=== PATIENT | female | born 1965 | race African-American/Black ===

== ENCOUNTER 2019-01-03 04:46 | Inpatient (IN) | payer OTHER ==
[~2019-01-03] VITALS: Ht 162.6 cm; Wt 109.8 kg
[~2019-01-03 04:46] MED LIST: DEXT30CA6 PO; DULO60CA6 PO; GABA-585 PO; OXYC1TAB19 PO; QUET25TA5 PO
[2019-01-03 05:27] LABS: BASO # 0.1 x10^3/uL (0.0-0.2); BASO % 1 % (0-3); EOS # 0.1 x10^3/uL (0.0-0.7); EOS % 1 % (0-3); HEMOGLOBIN 13.3 g/dL (12.0-15.5); LYMPH # 3.5 x10^3/uL (1.0-4.8); LYMPH % 31 % (24-48); MEAN CORPUSCULAR HEMOGLOBIN 29 pg (25-35); MEAN CORPUSCULAR HGB CONC 33 g/dL (31-37); MEAN CORPUSCULAR VOLUME 87 fL (79-100); MONO # 0.6 x10^3/uL (0.0-1.1); MONO % 5 % (0-9); NEUT % 62 % (31-73); PLATELET COUNT 227 x10^3/uL (140-400); RED BLOOD COUNT 4.62 x10^6/uL (3.50-5.40); RED CELL DISTRIBUTION WIDTH 15.3 % (11.5-14.5); WHITE BLOOD COUNT 11.3 x10^3/uL (4.0-11.0)
--- NOTE | 2019-01-03 05:29 | PHYS DOC ---
Past Medical History Past Medical History: Arthritis, Fibromyalgia, Hypertension, Other Additional Past Medical Histor: RHEUMATOID ARTHRITIS, chronic back pain (SONG NOYOLA DO) Past Surgical History: Cholecystectomy, Hysterectomy, Tonsillectomy Additional Past Surgical Histo: ABLASION, DVT REMOVED (SONG NOYOLA DO) Alcohol Use: Rarely Drug Use: Marijuana (SONG NOYOLA DO) Adult General Chief Complaint Chief Complaint: DIZZY/LIGHT HEADED HPI HPI 53-year-old female presents with report of dizziness which is been ongoing intermittently for the past 3 weeks. Reports today became very dizzy and ended up hitting her left hip on the tub. Reports increased pain to this area. Patient reports she feels "tight all over ". Denies chest pain. Reports some associated nausea. Denies vomiting. Denies room spinning sensation. Denies head trauma. Patient reports she thinks her dizziness might be secondary to not taking her prescribed medications over the last few weeks. Reports her pills were moved by some family members and she can't find where they are. (SONG NOYOLA DO) Review of Systems Review of Systems Constitutional: Denies fever or chills Eyes: Denies redness or eye pain HENT: Denies nasal congestion or sore throat Respiratory: Denies cough or shortness of breath Cardiovascular: Denies chest pain or palpitations GI: Denies abdominal pain; reports nausea : Denies dysuria or hematuria Musculoskeletal: Denies back pain; reports left hip pain Integument: Denies rash or skin lesions Neurologic: Denies headache, focal weakness or sensory changes; reports dizziness Complete systems were reviewed and found to be within normal limits, except as documented in this note. (SONG NYOOLA DO) Current Medications Current Medications Current Medications Medications (Trade) Dose Ordered Sig/Abner Start Time Stop Time Status Last Admin Dose Admin Ketorolac Tromethamine (Toradol 15mg Vial) 15 mg 1X ONCE 01/03/19 05:30 01/03/19 05:31 DC 01/03/19 05:42 15 MG Orphenadrine Citrate (Norflex) 60 mg 1X ONCE 01/03/19 05:30 01/03/19 05:31 DC 01/03/19 05:52 60 MG Sodium Chloride 1,000 ml @ 1,000 mls/hr 1X ONCE 01/03/19 05:30 01/03/19 06:29 DC 01/03/19 05:41 1,000 MLS/HR (CHRISTIANO MARQUEZ MD) Allergies Allergies Allergies Coded Allergies Type Severity Reaction Last Updated Verified Penicillins Allergy Intermediate 08/04/14 Yes lamotrigine Allergy Intermediate 01/03/19 Yes latex Allergy Intermediate 08/04/14 Yes lisinopril Allergy Intermediate 08/04/14 Yes (CHRISTIANO MARQUEZ MD) Physical Exam Physical Exam Constitutional: Well developed, well nourished, no acute distress, non-toxic appearance HENT: Normocephalic, atraumatic, oropharynx moist Eyes: PERRL, EOMI, conjunctiva normal, no discharge, no horizontal nystagmus noted Neck: Normal range of motion, no midline tenderness, supple, tenderness to left paraspinal musculature Cardiovascular: Heart rate normal, regular rhythm Lungs & Thorax: Bilateral breath sounds clear to auscultation, no wheezing Abdomen: Soft, no tenderness; pelvis stable and nontender Skin: Warm, dry, no erythema, no rash Back: No tenderness, no CVA tenderness Extremities: Left anterior tibial tenderness, ROM intact, 1+ edema to bilateral lower extremities Neurologic: Alert and oriented X 3, normal motor function, normal sensory function, no focal deficits noted, cerebellar function intact Psychologic: Affect anxious, judgement normal (SONG NOYOLA DO) Current Patient Data Vital Signs Vital Signs Date Time Temp Pulse Resp B/P (MAP) Pulse Ox O2 Delivery O2 Flow Rate FiO2 01/03/19 06:16 84 14 98 01/03/19 04:48 98.0 157/76 (103) Room Air 98.0 (CHRISTIANO MARQUEZ MD) Lab Values Laboratory Tests Test 01/03/19 05:20 01/03/19 05:50 01/03/19 06:07 White Blood Count 11.3 x10^3/uL (4.0-11.0) H Red Blood Count 4.62 x10^6/uL (3.50-5.40) Hemoglobin 13.3 g/dL (12.0-15.5) Hematocrit 40.0 % (36.0-47.0) Mean Corpuscular Volume 87 fL (79-100) Mean Corpuscular Hemoglobin 29 pg (25-35) Mean Corpuscular Hemoglobin Concent 33 g/dL (31-37) Red Cell Distribution Width 15.3 % (11.5-14.5) H Platelet Count 227 x10^3/uL (140-400) Neutrophils (%) (Auto) 62 % (31-73) Lymphocytes (%) (Auto) 31 % (24-48) Monocytes (%) (Auto) 5 % (0-9) Eosinophils (%) (Auto) 1 % (0-3) Basophils (%) (Auto) 1 % (0-3) Neutrophils # (Auto) 7.0 x10^3/uL (1.8-7.7) Lymphocytes # (Auto) 3.5 x10^3/uL (1.0-4.8) Monocytes # (Auto) 0.6 x10^3/uL (0.0-1.1) Eosinophils # (Auto) 0.1 x10^3/uL (0.0-0.7) Basophils # (Auto) 0.1 x10^3/uL (0.0-0.2) Prothrombin Time 13.2 SEC (11.7-14.0) Prothrombin Time INR 1.0 (0.8-1.1) Activated Partial Thromboplast Time 30 SEC (24-38) Sodium Level 147 mmol/L (136-145) H Potassium Level 3.4 mmol/L (3.5-5.1) L Chloride Level 107 mmol/L (98-107) Carbon Dioxide Level 31 mmol/L (21-32) Anion Gap 9 (6-14) Blood Urea Nitrogen 14 mg/dL (7-20) Creatinine 1.0 mg/dL (0.6-1.0) Estimated GFR (Cockcroft-Gault) 70.2 BUN/Creatinine Ratio 14 (6-20) Glucose Level 98 mg/dL (70-99) Lactic Acid Level 1.7 mmol/L (0.4-2.0) Calcium Level 9.3 mg/dL (8.5-10.1) Magnesium Level 1.9 mg/dL (1.8-2.4) Total Bilirubin 0.2 mg/dL (0.2-1.0) Aspartate Amino Transferase (AST) 13 U/L (15-37) L Alanine Aminotransferase (ALT) 22 U/L (14-59) Alkaline Phosphatase 121 U/L (46-116) H Creatine Kinase 131 U/L (26-192) Creatine Kinase MB (Mass) 1.4 ng/mL (0.0-3.6) Creatine Kinase MB Relative Index 1.1 % (0-4) Troponin I Quantitative < 0.017 ng/mL (0.000-0.055) Total Protein 7.3 g/dL (6.4-8.2) Albumin 3.3 g/dL (3.4-5.0) L Albumin/Globulin Ratio 0.8 (1.0-1.7) L Urine Collection Type Unknown Urine Color Yellow Urine Clarity Clear Urine pH 6.0 Urine Specific [place] 1.010 Urine Protein Negative mg/dL (NEG-TRACE) Urine Glucose (UA) Negative mg/dL (NEG) Urine Ketones (Stick) Negative mg/dL (NEG) Urine Blood Moderate (NEG) Urine Nitrite Negative (NEG) Urine Bilirubin Negative (NEG) Urine Urobilinogen Dipstick 0.2 mg/dL (0.2 mg/dL) Urine Leukocyte Esterase Trace (NEG) Urine RBC 1-2 /HPF (0-2) Urine WBC 1-4 /HPF (0-4) Urine Squamous Epithelial Cells Few /LPF Urine Bacteria Few /HPF (0-FEW) Laboratory Tests 01/03/19 05:20 Laboratory Tests 01/03/19 05:50 (CHRISTIANO MARQUEZ MD) Lab Values Laboratory Tests Test 01/03/19 05:20 White Blood Count 11.3 x10^3/uL (4.0-11.0) H Red Blood Count 4.62 x10^6/uL (3.50-5.40) Hemoglobin 13.3 g/dL (12.0-15.5) Hematocrit 40.0 % (36.0-47.0) Mean Corpuscular Volume 87 fL (79-100) Mean Corpuscular Hemoglobin 29 pg (25-35) Mean Corpuscular Hemoglobin Concent 33 g/dL (31-37) Red Cell Distribution Width 15.3 % (11.5-14.5) H Platelet Count 227 x10^3/uL (140-400) Neutrophils (%) (Auto) 62 % (31-73) Lymphocytes (%) (Auto) 31 % (24-48) Monocytes (%) (Auto) 5 % (0-9) Eosinophils (%) (Auto) 1 % (0-3) Basophils (%) (Auto) 1 % (0-3) Neutrophils # (Auto) 7.0 x10^3/uL (1.8-7.7) Lymphocytes # (Auto) 3.5 x10^3/uL (1.0-4.8) Monocytes # (Auto) 0.6 x10^3/uL (0.0-1.1) Eosinophils # (Auto) 0.1 x10^3/uL (0.0-0.7) Basophils # (Auto) 0.1 x10^3/uL (0.0-0.2) Laboratory Tests 01/03/19 05:20 (SONG NOYOLA DO) EKG EKG @0543 NSR at 80bpm, NO ST elevation, QRS 102ms, QT/QTc 394/458ms, baseline artifact noted (SONG NOYOLA DO) Radiology/Procedures Radiology/Procedures [] (SONG NOYOLA DO) Radiology/Procedures [facility] [address] [place], [place] [id number] IMAGING REPORT Signed PATIENT: RALPH ZEE ACCOUNT: [id number] : 1965 LOCATION: ER AGE: 53 SEX: F EXAM STATUS: REG ER ORD. PHYSICIAN: SONG NOYOLA DO REASON: pain s/p fall, dizziness PROCEDURE: CT HEAD AND CERVICAL SPINE WO CT Head W/O Contrast: History: Comparison: Pain status post fall and dizziness Axial images were obtained without contrast. The ramos and white matter appears normal and symmetrical for the patients age. There is no mass effect, extraaxial fluid collections or hydrocephalus. There is no gross bleed. There is no focal loss of ramos-white matter distinction to suggest acute ischemia, i.e. stroke. Impression: No acute findings. End impression CT C-Spine without contrast: Clinical History: Technique: Axial helical images of the cervical spine were obtained without contrast, axial coronal and sagittal reconstruction was performed. Findings: There is no loss of vertebral body stature. There is no prevertebral soft tissue swelling. The vertebral bodies are well aligned. There is straightening of the normal cervical lordosis which can be positional or could be chronic. The C1-C2 relationship is normal. The visualized osseous structures appear normal. Evaluation of the central canal is limited without contrast. There is multiple posterior disc bulges resulting in flattening of the thecal sac. There does not appear to be gross flattening of the cervical cord. There is moderate narrowing of multiple neuroforamen. Impression: No acute findings. Clinical correlation suggested. PQRS Compliance Statement: One or more of the following individualized dose reduction techniques were utilized for this examination: 1. Automated exposure control 2. Adjustment of the mA and/or kV according to patient size 3. Use of iterative reconstruction technique Electronically signed by: Rupesh Roque III, MD (01/03/2019 6:19 AM) [facility] DICTATED and SIGNED BY: RUPESH ROQUE III, MD DATE: 01/03/19618 (CHRISTIANO MARQUEZ MD) Course & Med Decision Making Course & Med Decision Making Pertinent Labs and Imaging studies reviewed. (See chart for details) Patient presents with 3 week history of intermittent dizziness. Denies room spinning sensation. Reports some associated nausea. Symptomatic treatment provided. Patient appears very anxious. NIHSS 0. Labs obtained and pending. CT head/cervical spine also pending. Chest x-ray and left hip x-ray pending. Sign out given to Dr. Marquez for further evaluation and final disposition. Discussed current findings and plan with patient, who acknowledges understanding and agreement. (SONG NOYOLA DO) Course & Med Decision Making Patient's care transferred to [place] at 0600. Evaluation of patient in ER showed 53-year-old female patient with episodes of dizziness for 3 weeks and a fall this morning and injured her left hip. CT head and a Of chest and hip was unremarkable. Labs showed mild hypernatremia and hypokalemia acuity is pending. Patient asked for pain medication for left hip pain. Toradol was ordered. Patient requiring admission for further evaluation and treatment. Discussed with Dr. Demarco who is in agreement with admission. Discussed findings and plan with patient and family, who acknowledge understanding and agreement. (CHRISTIANO MARQUEZ MD) Dragon Disclaimer Dragon Disclaimer This electronic medical record was generated, in whole or in part, using a voice recognition dictation system. (SONG NOYOLA DO) Departure Departure Impression: Primary Impression: Dizziness Additional Impressions: Contusion, hip Hypokalemia Hypernatremia Disposition: 09 ADMITTED INPATIENT (at 0 650) Admitting Physician: HIMS (Dr. Demarco accepted admission at 0 648.) (CHRISTIANO MARQUEZ MD) Condition: IMPROVED Referrals: UNKNOWN PCP NAME (PCP) NIHSS Stroke Scale NIH Stroke Scale: NIH Stroke Scale Response (Comments) Value Level of Consciousness: 0 Alert/Responsive 0 LOC Questions: 0 Answers both correctly 0 LOC Commands: 0 Performs both tasks 0 Best Gaze: 0 Normal 0 Visual: 0 No visual loss 0 Facial Palsy: 0 Normal, symmetrical 0 Motor - Left Arm 0 No drift 0 Motor - Right Arm 0 No drift 0 Motor - Left Leg 0 No drift 0 Motor: Right Leg 0 No drift 0 Limb Ataxia: 0 Absent 0 Sensory: 0 No loss 0 Best Language: 0 Normal 0 Dysathria: 0 Normal 0 Extinction and Inattention: 0 Normal 0 Total 0 Problem Qualifiers Additional Impressions: Contusion, hip Encounter type: initial encounter Laterality: left Qualified Codes: S70.02XA - Contusion of left hip, initial encounter SONG NOYOLA DO Jan 03, 2019 05:29 CHRISTIANO MARQUEZ MD Jan 03, 2019 06:58
[2019-01-03] MEDS ORDERED: KETOROLAC 15 MG/ML VIAL. IVP ONE (05:30)
[2019-01-03] MEDS ORDERED: ORPHENADRINE CITRATE 60 MG/2 ML VIAL. IV ONE (05:30)
[2019-01-03] MEDS ORDERED: IV NORMAL SALINE 1000ML BAG 1,000 ML IV ONE (05:30)
[2019-01-03 06:15] LABS: CALCIUM 9.3 mg/dL (8.5-10.1); GFR 70.2; POTASSIUM 3.4 mmol/L (3.5-5.1)
[2019-01-03 06:19] LABS: PROTHROMBIN TIME PATIENT 13.2 SEC (11.7-14.0)
--- NOTE | 2019-01-03 06:22 | RAD ---
CT Head W/O Contrast: History: Comparison: Pain status post fall and dizziness Axial images were obtained without contrast. The ramos and white matter appears normal and symmetrical for the patients age. There is no mass effect, extraaxial fluid collections or hydrocephalus. There is no gross bleed. There is no focal loss of ramos-white matter distinction to suggest acute ischemia, i.e. stroke. Impression: No acute findings. End impression CT C-Spine without contrast: Clinical History: Technique: Axial helical images of the cervical spine were obtained without contrast, axial coronal and sagittal reconstruction was performed. Findings: There is no loss of vertebral body stature. There is no prevertebral soft tissue swelling. The vertebral bodies are well aligned. There is straightening of the normal cervical lordosis which can be positional or could be chronic. The C1-C2 relationship is normal. The visualized osseous structures appear normal. Evaluation of the central canal is limited without contrast. There is multiple posterior disc bulges resulting in flattening of the thecal sac. There does not appear to be gross flattening of the cervical cord. There is moderate narrowing of multiple neuroforamen. Impression: No acute findings. Clinical correlation suggested. PQRS Compliance Statement: One or more of the following individualized dose reduction techniques were utilized for this examination: 1. Automated exposure control 2. Adjustment of the mA and/or kV according to patient size 3. Use of iterative reconstruction technique Electronically signed by: Pete Rivera III, MD (01/03/2019 6:19 AM) [facility]
[2019-01-03 06:25] LABS: BILIRUBIN,URINE NEGATIVE (NEG); CLARITY,URINE CLEAR; COLOR,URINE YELLOW; NITRITE,URINE NEGATIVE (NEG); PROTEIN,URINE NEGATIVE (NEG-TRACE); UROBILINOGEN,URINE 0.2 mg/dL (0.2 mg/dL)
[2019-01-03 06:27] LABS: ALBUMIN 3.3 g/dL (3.4-5.0); ALBUMIN/GLOBULIN RATIO 0.8 (1.0-1.7); MAGNESIUM 1.9 mg/dL (1.8-2.4); TOTAL BILIRUBIN 0.2 mg/dL (0.2-1.0); TOTAL PROTEIN 7.3 g/dL (6.4-8.2)
[2019-01-03 06:49] LABS: BACTERIA,URINE FEW /HPF (0-FEW); SQUAMOUS EPITHELIAL CELL,UR FEW /LPF
[2019-01-03] MEDS ORDERED: MECLIZINE HCL 12.5 MG TABLET. PO ONE (07:15)
[2019-01-03] MEDS ORDERED: POTASSIUM CHLORIDE 20 MEQ TABLET.ER. PO ONE (07:15)
[2019-01-03] MEDS ORDERED: KETOROLAC 30 MG/ML VIAL. IVP ONE (07:15)
--- NOTE | 2019-01-03 07:57 | RAD ---
CHEST AP ONLY History: Dizziness. Comparison: August 04, 2014 Findings: No consolidation or pleural effusion. Normal heart size. Prior granulomatous disease. Impression: 1. No acute cardiopulmonary process. Electronically signed by: Clark Kapoor DO (01/03/2019 7:54 AM) [facility]
--- NOTE | 2019-01-03 07:59 | RAD ---
HIP LEFT 2V WITH PELVIS History: Fall. Pain. Technique: AP view the pelvis and 2 additional views of the left hip. Comparison: None. Findings: Normal alignment of the hips. No fracture. Soft tissues unremarkable. Mild pubic symphysis DJD. Lower lumbar spondylosis. Impression: 1. No acute osseous abnormality. Electronically signed by: Clark Kapoor DO (01/03/2019 7:56 AM) [facility]
--- NOTE | 2019-01-03 08:00 | EKG ---
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
[2019-01-03] MEDS: HYDROcodone/APAP 5/325MG 1 TAB TABLET PO PRN ×3 (10:07→21:46)
[2019-01-03] MEDS: MORPHINE SULFATE 2 MG/ML VIAL. IV PRN ×2 (10:07→17:49)
--- NOTE | 2019-01-03 11:08 | HP ---
ADMIT DATE: 01/03/2019 CHIEF COMPLAINT: Weakness and fall, hip pain, headache, tightness all over. HISTORY OF PRESENT ILLNESS: The patient is a pleasant 53-year-old female, who basically was going to the bathroom and became a little weak, she got dizzy and then she fell. I had her explain how she fell; I really was not quite clear, but she states she never really ended up totally on the floor. I think she fell down to her knees and hit her left hip on the side of the tub. Now, she states she has a headache. We scanned her brain and it is negative. She has been noncompliance with her meds. She states she has not been taking her prescribed meds for the past few weeks. Apparently, some of her family members took her meds and she cannot find them anywhere. I discussed the case with ER physician. We have admitted the patient. We are going to be consulting Orthopedics regarding this left hip pain. We will give her some pain meds for her headache. I also offered to consult Neurology, but she refuses to see them. PAST MEDICAL HISTORY: Arthritis, fibromyalgia, hypertension, rheumatoid arthritis, chronic back pain, cholecystectomy, hysterectomy, tonsillectomy, ablation, DVT, marijuana use. ALLERGIES: PENICILLIN, LATEX, LISINOPRIL, AND LAMOTRIGINE. FAMILY HISTORY: Hypertension. SOCIAL HISTORY: She does not drink, smoke, or take drugs. MEDICATIONS: Reviewed, please refer to the MRAD. REVIEW OF SYSTEMS: GENERAL: She complains of weakness. HEAD: She complains of headache. SKIN: No bruising, hair changes or rashes. EYES: No blurred, double or loss of vision. NOSE AND THROAT: No history of nosebleeds, hoarseness or sore throat. HEART: No history of palpitations, chest pain or shortness of breath on exertion. LUNGS: Denies cough, hemoptysis, wheezing or shortness of breath. GASTROINTESTINAL: Denies changes in appetite, nausea, vomiting, diarrhea or constipation. GENITOURINARY: No history of frequency, urgency, hesitancy or nocturia. NEUROLOGIC: She complains of headache as well. Denies history of numbness, tingling, tremor or weakness. PSYCHIATRIC: No history of panic, anxiety or depression. ENDOCRINE: No history of heat or cold intolerance, polyuria or polydipsia. EXTREMITIES: She complains of left hip pain. MUSCULOSKELETAL: She complains of diffuse body pain. LABORATORY DATA: White count is slightly high at 11.3. Electrolytes: Sodium is a little high at 147, potassium a little low at 3.4. The other lytes are normal. Alk phos slightly high at 121. AST low at 13. Troponin is 0. Albumin is 3.3. Urinalysis: Trace leukocyte esterase, 1-4 white cells, a few squamous epithelial cells, so I suspect that might be contaminated. Chest x-ray: Negative. CT of the cervical spine: Negative. Left hip films: Negative. ASSESSMENT AND PLAN: Fall and dizziness, diffuse pain with left hip pain and headache, hypokalemia, leukocytosis, hypernatremia, and low albumin. The patient has been admitted. We are going to consult Orthopedics regarding the left hip pain, suspect she might need a CAT scan of that to confirm whether or not it is actually fractured. She does seem to be having a lot of pain there, especially when she moves. Morphine p.r.n. and p.r.n. Lortab, PT/OT, home meds, replace her potassium, IV normal saline at 75 an hour, full code. NIKI TYLER DO DR: SASHA/rodolfo JOB#: [id number] / [id number]
--- NOTE | 2019-01-03 12:56 | NUR ---
SS following for discharge planning. SS reviewed pt chart. Pt is from home and is currently on room air. PT/OT ordered. SS will continue to follow for discharge planning.
[2019-01-03] MEDS: IV NORMAL SALINE 1000ML BAG 1,000 ML IV SCH ×2 (14:00→23:50)
[2019-01-03] MEDS ORDERED: VENL150C PO (14:32)
[2019-01-03] MEDS: VENLAFAXINE 50 MG TABLET. PO SCH ×2 (17:49→21:01)
[2019-01-03] MEDS: NICOTINE 21MG PATCH. TD PRN (17:49)
[2019-01-03 19:30] VITALS: BP 141/82
[2019-01-03 23:33] VITALS: BP 148/94
[2019-01-04] MEDS: HYDROcodone/APAP 5/325MG 1 TAB TABLET PO PRN ×4 (03:21→21:38)
[2019-01-04 03:45] VITALS: BP 126/81
[2019-01-04 06:30] LABS: BASO % 0 % (0-3); EOS # 0.2 x10^3/uL (0.0-0.7); EOS % 3 % (0-3); HEMATOCRIT 37.7 % (36.0-47.0); HEMOGLOBIN 12.4 g/dL (12.0-15.5); LYMPH # 2.5 x10^3/uL (1.0-4.8); LYMPH % 31 % (24-48); MEAN CORPUSCULAR HEMOGLOBIN 29 pg (25-35); MEAN CORPUSCULAR HGB CONC 33 g/dL (31-37); MEAN CORPUSCULAR VOLUME 88 fL (79-100); MONO # 0.5 x10^3/uL (0.0-1.1); MONO % 6 % (0-9); NEUT # 4.8 x10^3/uL (1.8-7.7); NEUT % 60 % (31-73); PLATELET COUNT 196 x10^3/uL (140-400); RED BLOOD COUNT 4.31 x10^6/uL (3.50-5.40); RED CELL DISTRIBUTION WIDTH 14.8 % (11.5-14.5)
[2019-01-04 06:47] LABS: ALBUMIN/GLOBULIN RATIO 0.8 (1.0-1.7); CALCIUM 8.5 mg/dL (8.5-10.1); CREATININE 0.9 mg/dL (0.6-1.0); GFR 79.3; POTASSIUM 3.9 mmol/L (3.5-5.1); TOTAL BILIRUBIN 0.2 mg/dL (0.2-1.0); TOTAL PROTEIN 6.9 g/dL (6.4-8.2)
[2019-01-04] MEDS: MORPHINE SULFATE 2 MG/ML VIAL. IV PRN ×4 (07:23→21:51)
[2019-01-04 07:59] VITALS: BP 148/83
[2019-01-04] MEDS: NICOTINE 21MG PATCH. TD PRN (10:00)
[2019-01-04] MEDS: amLODIPine BESYLATE 10 MG TABLET PO SCH (10:01)
[2019-01-04] MEDS: VENLAFAXINE 50 MG TABLET. PO SCH ×3 (10:01→21:38)
--- NOTE | 2019-01-04 10:09 | PDOC2 ---
CONSULT Date of Consult Date of Consult DATE: 01/04/19 TIME: 10:06 I just noted consult now in EMR. I wasn't notified otherwise. Identification/Chief Complaint Chief Complaint left hip and left leg pain after a fall Source Source: Chart review, Patient History of Present Illness Reason for Visit: This 53-year-old woman fell, and landed on the bathtub. She was able to weight- bear afterwards but came to the hospital with continued pain. She fell about 2 or 3 months ago in the parking lot and bruised her left tibia which is still bothersome to her, and she said is actually more concerning to her than the hip. She also reports a left ankle fracture which occurred in the and was treated at [facility] with air splint and [facility] Walker. Past Medical History Cardiovascular: HTN Rheumatologic: Fibromyalgia Past Surgical History Past Surgical History: No pertinent history Family History Family History: Heart Disease, High Cholestrol, Hypertension Social History ALCOHOL: none Current Problem List Problem List Problems Medical Problems: (1) Contusion, hip Status: Acute (2) Dizziness Status: Acute (3) Hypernatremia Status: Acute (4) Hypokalemia Status: Acute Current Medications Current Medications Current Medications Sodium Chloride 1,000 ml @ 1,000 mls/hr 1X ONCE IV Last administered on 01/03/19at 05:41; Start 01/03/19 at 05:30; Stop 01/03/19 at 06:29; Status DC Orphenadrine Citrate (Norflex) 60 mg 1X ONCE IV Last administered on 01/03/19at 05:52; Start 01/03/19 at 05:30; Stop 01/03/19 at 05:31; Status DC Ketorolac Tromethamine (Toradol 15mg Vial) 15 mg 1X ONCE IVP Last administered on 01/03/19at 05:42; Start 01/03/19 at 05:30; Stop 01/03/19 at 05:31; Status DC Ketorolac Tromethamine (Toradol 30mg Vial) 30 mg 1X ONCE IVP ; Start 01/03/19 at 07:15; Stop 01/03/19 at 07:05; Status DC Meclizine HCl (Antivert) 25 mg 1X ONCE PO Last administered on 01/03/19at 07:08; Start 01/03/19 at 07:15; Stop 01/03/19 at 07:16; Status DC Potassium Chloride (Klor-Con) 40 meq 1X ONCE PO Last administered on 01/03/19at 07:08; Start 01/03/19 at 07:15; Stop 01/03/19 at 07:16; Status DC Morphine Sulfate (Morphine Sulfate) 2 mg PRN Q2HR PRN IV PAIN Last administered on 01/04/19 10:01; Start 01/03/19 at 09:30 Acetaminophen/ Hydrocodone Bitart (Lortab 5/325) 1 tab PRN Q4HRS PRN PO PAIN Last administered on 01/04/19 10:00; Start 01/03/19 at 09:30 Amlodipine Besylate (Norvasc) 10 mg DAILY PO Last administered on 01/04/19 10:01; Start 01/04/19 at 09:00 Sodium Chloride 1,000 ml @ 75 mls/hr [id number] IV Last administered on 01/03/19at 23:50; Start 01/03/19 at 10:30 Venlafaxine HCl (Effexor) 50 mg TID PO Last administered on 01/04/19at 10:01; Start 01/03/19 at 15:30 Nicotine (Nicoderm Cq 21mg) 1 patch PRN DAILY PRN TD SMOKING CESSATION Last administered on 01/04/19at 10:00; Start 01/03/19 at 17:15 Active Scripts Active Reported Effexor Xr (Venlafaxine Hcl) 150 Mg Cap.er.24h 150 Mg PO DAILY Adderall Xr 30 Mg Capsule (Dextroamphetamine/Amphetamine) 30 Mg Cap.er.24h 1 Cap PO DAILY Allergies Allergies: Coded Allergies: Penicillins (Verified Allergy, Intermediate, 08/04/14) lamotrigine (Verified Allergy, Intermediate, 01/03/19) latex (Verified Allergy, Intermediate, 08/04/14) lisinopril (Verified Allergy, Intermediate, 08/04/14) Physical Exam General: Alert, Cooperative HEENT: Atraumatic Lungs: Normal air movement Heart: Regular rate Abdomen: Soft Extremities: Other (her left hip is slightly tender around the left flank area, above the iliac crest. Less tenderness over the greater trochanter and hip joint proper. Possible trace bruising, nothing dramatic. I was able to have her ac tively lift the leg from the bed, and internal and external rotation with minimal pain. She has some muscle and soft tissue soreness but no apparent bony pain with those maneuvers. I simulated weightbearing by applying pressure at the heel and she had no hip pain. She does have a discoloration on the anterior tibia as the area she reports the injury a few months ago, and there is no current break in the skin or any raised lesion, and this appears to be a remote recovering contusion without apparent fracture. The ankle alignment grossly appears normal and was nontender at the foot and ankle. Distal neurovascular function is unremarkable.) Neuro: Normal tone, Sensation intact Psych/Mental Status: Mood NL Vitals VITALS Vital Signs Date Time Temp Pulse Resp B/P (MAP) Pulse Ox O2 Delivery O2 Flow Rate FiO2 01/04/19 10:01 89 148/83 01/04/19 10:01 97 Room Air 01/04/19 07:59 97.9 18 97.9 Labs Labs Laboratory Tests Test 01/03/19 05:20 01/03/19 05:50 01/03/19 06:07 01/04/19 06:00 White Blood Count 11.3 x10^3/uL (4.0-11.0) 8.0 x10^3/uL (4.0-11.0) Red Blood Count 4.62 x10^6/uL (3.50-5.40) 4.31 x10^6/uL (3.50-5.40) Hemoglobin 13.3 g/dL (12.0-15.5) 12.4 g/dL (12.0-15.5) Hematocrit 40.0 % (36.0-47.0) 37.7 % (36.0-47.0) Mean Corpuscular Volume 87 fL (79-100) 88 fL (79-100) Mean Corpuscular Hemoglobin 29 pg (25-35) 29 pg (25-35) Mean Corpuscular Hemoglobin Concent 33 g/dL (31-37) 33 g/dL (31-37) Red Cell Distribution Width 15.3 % (11.5-14.5) 14.8 % (11.5-14.5) Platelet Count 227 x10^3/uL (140-400) 196 x10^3/uL (140-400) Neutrophils (%) (Auto) 62 % (31-73) 60 % (31-73) Lymphocytes (%) (Auto) 31 % (24-48) 31 % (24-48) Monocytes (%) (Auto) 5 % (0-9) 6 % (0-9) Eosinophils (%) (Auto) 1 % (0-3) 3 % (0-3) Basophils (%) (Auto) 1 % (0-3) 0 % (0-3) Neutrophils # (Auto) 7.0 x10^3/uL (1.8-7.7) 4.8 x10^3/uL (1.8-7.7) Lymphocytes # (Auto) 3.5 x10^3/uL (1.0-4.8) 2.5 x10^3/uL (1.0-4.8) Monocytes # (Auto) 0.6 x10^3/uL (0.0-1.1) 0.5 x10^3/uL (0.0-1.1) Eosinophils # (Auto) 0.1 x10^3/uL (0.0-0.7) 0.2 x10^3/uL (0.0-0.7) Basophils # (Auto) 0.1 x10^3/uL (0.0-0.2) 0.0 x10^3/uL (0.0-0.2) Prothrombin Time 13.2 SEC (11.7-14.0) Prothromb Time International Ratio 1.0 (0.8-1.1) Activated Partial Thromboplast Time 30 SEC (24-38) Sodium Level 147 mmol/L (136-145) 146 mmol/L (136-145) Potassium Level 3.4 mmol/L (3.5-5.1) 3.9 mmol/L (3.5-5.1) Chloride Level 107 mmol/L (98-107) 112 mmol/L (98-107) Carbon Dioxide Level 31 mmol/L (21-32) 28 mmol/L (21-32) Anion Gap 9 (6-14) 6 (6-14) Blood Urea Nitrogen 14 mg/dL (7-20) 10 mg/dL (7-20) Creatinine 1.0 mg/dL (0.6-1.0) 0.9 mg/dL (0.6-1.0) Estimated GFR (Cockcroft-Gault) 70.2 79.3 BUN/Creatinine Ratio 14 (6-20) 11 (6-20) Glucose Level 98 mg/dL (70-99) 95 mg/dL (70-99) Lactic Acid Level 1.7 mmol/L (0.4-2.0) Calcium Level 9.3 mg/dL (8.5-10.1) 8.5 mg/dL (8.5-10.1) Magnesium Level 1.9 mg/dL (1.8-2.4) Total Bilirubin 0.2 mg/dL (0.2-1.0) 0.2 mg/dL (0.2-1.0) Aspartate Amino Transf (AST/SGOT) 13 U/L (15-37) 15 U/L (15-37) Alanine Aminotransferase (ALT/SGPT) 22 U/L (14-59) 21 U/L (14-59) Alkaline Phosphatase 121 U/L (46-116) 111 U/L (46-116) Creatine Kinase 131 U/L (26-192) Creatine Kinase MB (Mass) 1.4 ng/mL (0.0-3.6) Creatine Kinase MB Relative Index 1.1 % (0-4) Troponin I Quantitative < 0.017 ng/mL (0.000-0.055) Total Protein 7.3 g/dL (6.4-8.2) 6.9 g/dL (6.4-8.2) Albumin 3.3 g/dL (3.4-5.0) 3.0 g/dL (3.4-5.0) Albumin/Globulin Ratio 0.8 (1.0-1.7) 0.8 (1.0-1.7) Urine Collection Type Unknown Urine Color Yellow Urine Clarity Clear Urine pH 6.0 Urine Specific [place] 1.010 Urine Protein Negative mg/dL (NEG-TRACE) Urine Glucose (UA) Negative mg/dL (NEG) Urine Ketones (Stick) Negative mg/dL (NEG) Urine Blood Moderate (NEG) Urine Nitrite Negative (NEG) Urine Bilirubin Negative (NEG) Urine Urobilinogen Dipstick 0.2 mg/dL (0.2 mg/dL) Urine Leukocyte Esterase Trace (NEG) Urine RBC 1-2 /HPF (0-2) Urine WBC 1-4 /HPF (0-4) Urine Squamous Epithelial Cells Few /LPF Urine Bacteria Few /HPF (0-FEW) Laboratory Tests Test 01/04/19 06:00 White Blood Count 8.0 x10^3/uL (4.0-11.0) Red Blood Count 4.31 x10^6/uL (3.50-5.40) Hemoglobin 12.4 g/dL (12.0-15.5) Hematocrit 37.7 % (36.0-47.0) Mean Corpuscular Volume 88 fL (79-100) Mean Corpuscular Hemoglobin 29 pg (25-35) Mean Corpuscular Hemoglobin Concent 33 g/dL (31-37) Red Cell Distribution Width 14.8 % (11.5-14.5) Platelet Count 196 x10^3/uL (140-400) Neutrophils (%) (Auto) 60 % (31-73) Lymphocytes (%) (Auto) 31 % (24-48) Monocytes (%) (Auto) 6 % (0-9) Eosinophils (%) (Auto) 3 % (0-3) Basophils (%) (Auto) 0 % (0-3) Neutrophils # (Auto) 4.8 x10^3/uL (1.8-7.7) Lymphocytes # (Auto) 2.5 x10^3/uL (1.0-4.8) Monocytes # (Auto) 0.5 x10^3/uL (0.0-1.1) Eosinophils # (Auto) 0.2 x10^3/uL (0.0-0.7) Basophils # (Auto) 0.0 x10^3/uL (0.0-0.2) Sodium Level 146 mmol/L (136-145) Potassium Level 3.9 mmol/L (3.5-5.1) Chloride Level 112 mmol/L (98-107) Carbon Dioxide Level 28 mmol/L (21-32) Anion Gap 6 (6-14) Blood Urea Nitrogen 10 mg/dL (7-20) Creatinine 0.9 mg/dL (0.6-1.0) Estimated GFR (Cockcroft-Gault) 79.3 BUN/Creatinine Ratio 11 (6-20) Glucose Level 95 mg/dL (70-99) Calcium Level 8.5 mg/dL (8.5-10.1) Total Bilirubin 0.2 mg/dL (0.2-1.0) Aspartate Amino Transf (AST/SGOT) 15 U/L (15-37) Alanine Aminotransferase (ALT/SGPT) 21 U/L (14-59) Alkaline Phosphatase 111 U/L (46-116) Total Protein 6.9 g/dL (6.4-8.2) Albumin 3.0 g/dL (3.4-5.0) Albumin/Globulin Ratio 0.8 (1.0-1.7) Images Images [facility] [address] [place] [address] IMAGING REPORT Signed PATIENT: RALPH ZEE ACCOUNT: [id number] : 1965 LOCATION: [address] [place] [address] AGE: 53 SEX: F EXAM STATUS: ADM IN ORD. PHYSICIAN: SONG NOYOLA DO REASON: pain s/p fall PROCEDURE: HIP LEFT 2V WITH PELVIS HIP LEFT 2V WITH PELVIS History: Fall. Pain. Technique: AP view the pelvis and 2 additional views of the left hip. Comparison: None. Findings: Normal alignment of the hips. No fracture. Soft tissues unremarkable. Mild pubic symphysis DJD. Lower lumbar spondylosis. Impression: 1. No acute osseous abnormality. Electronically signed by: lCark Kapoor DO (01/03/2019 7:56 AM) [facility] DICTATED and SIGNED BY: CLARK KAPOOR DO DATE: 01/03/19 0756 Assessment/Plan Assessment/Plan I reviewed the x-rays. No fracture is seen. I don't believe there is a fracture based on my examination. I will allow her to be up weightbearing as tolerated with a walker. If she has continued or increasing pain and would consider CT scan or MRI (which is more sensitive) or bone scan for further evaluation, but my suspicion of occult fracture is very low. I believe she has a hip contusion and no active treatment is required. RUPESH LOMELI MD Jan 04, 2019 10:08
--- NOTE | 2019-01-04 11:09 | PDOC ---
[employer] PROGRESS NOTE Chief Complaint Chief Complaint Fall weakness hip pain headache History of Present Illness History of Present Illness 01/04/19 Pt seen and examined. Pt was walking with help of nurse in room. Still awaiting ortho input about hip - Xray of hip was negative for fracture on admission. Pt unwilling to have neuro consult. Vitals/I&O Vitals/I&O: Vital Signs Date Time Temp Pulse Resp B/P (MAP) Pulse Ox O2 Delivery O2 Flow Rate FiO2 01/04/19 10:01 89 148/83 01/04/19 10:01 97 Room Air 01/04/19 07:59 97.9 18 97.9 I & O 01/03/19 01/03/19 01/04/19 15:00 23:00 07:00 Intake Total 1000 ml 300 ml 700 ml Balance 1000 ml 300 ml 700 ml Physical Exam Physical Exam: Yes headache Yes weakness General: Alert, Oriented X3, mild distress Heart: Regular rate, No murmurs Lungs: Clear Abdomen: Soft, No tenderness Extremities: No edema, No tenderness/swelling, Other (No bruising on L hip where pt reports pain) Labs Labs: Laboratory Tests Test 01/04/19 06:00 White Blood Count 8.0 x10^3/uL (4.0-11.0) Red Blood Count 4.31 x10^6/uL (3.50-5.40) Hemoglobin 12.4 g/dL (12.0-15.5) Hematocrit 37.7 % (36.0-47.0) Mean Corpuscular Volume 88 fL (79-100) Mean Corpuscular Hemoglobin 29 pg (25-35) Mean Corpuscular Hemoglobin Concent 33 g/dL (31-37) Red Cell Distribution Width 14.8 % (11.5-14.5) Platelet Count 196 x10^3/uL (140-400) Neutrophils (%) (Auto) 60 % (31-73) Lymphocytes (%) (Auto) 31 % (24-48) Monocytes (%) (Auto) 6 % (0-9) Eosinophils (%) (Auto) 3 % (0-3) Basophils (%) (Auto) 0 % (0-3) Neutrophils # (Auto) 4.8 x10^3/uL (1.8-7.7) Lymphocytes # (Auto) 2.5 x10^3/uL (1.0-4.8) Monocytes # (Auto) 0.5 x10^3/uL (0.0-1.1) Eosinophils # (Auto) 0.2 x10^3/uL (0.0-0.7) Basophils # (Auto) 0.0 x10^3/uL (0.0-0.2) Sodium Level 146 mmol/L (136-145) Potassium Level 3.9 mmol/L (3.5-5.1) Chloride Level 112 mmol/L (98-107) Carbon Dioxide Level 28 mmol/L (21-32) Anion Gap 6 (6-14) Blood Urea Nitrogen 10 mg/dL (7-20) Creatinine 0.9 mg/dL (0.6-1.0) Estimated GFR (Cockcroft-Gault) 79.3 BUN/Creatinine Ratio 11 (6-20) Glucose Level 95 mg/dL (70-99) Calcium Level 8.5 mg/dL (8.5-10.1) Total Bilirubin 0.2 mg/dL (0.2-1.0) Aspartate Amino Transf (AST/SGOT) 15 U/L (15-37) Alanine Aminotransferase (ALT/SGPT) 21 U/L (14-59) Alkaline Phosphatase 111 U/L (46-116) Total Protein 6.9 g/dL (6.4-8.2) Albumin 3.0 g/dL (3.4-5.0) Albumin/Globulin Ratio 0.8 (1.0-1.7) Assessment and Plan Assessmemt and Plan Problems Medical Problems: (1) Contusion, hip Status: Acute (2) Dizziness Status: Acute (3) Hypernatremia Status: Acute (4) Hypokalemia Status: Acute A/P Fall with weakness and dizziness Hip Pain Headache hypernatremia CT head, Chest xray, and hip xray were all negative for acute processes await Orthopedics input regarding left hip pain, suspect she might need a CAT scan Pt refused neuro consult. Morphine p.r.n. and [place] 5/325 p.r.n. PT/OT, home meds, IV normal saline at 75 an hour, full code. Comment Review of Relevant I have reviewed the following items berta (where applicable) has been applied. Medications: Current Medications Medications (Trade) Dose Ordered Sig/Abner Route PRN Reason Start Time Stop Time Status Last Admin Dose Admin Amlodipine Besylate (Norvasc) 10 mg DAILY PO 01/04/19 09:00 01/04/19 10:01 Venlafaxine HCl (Effexor) 50 mg TID PO 01/03/19 15:30 01/04/19 10:01 Nicotine (Nicoderm Cq 21mg) 1 patch PRN DAILY PRN TD SMOKING CESSATION 01/03/19 17:15 01/04/19 10:00 NIKI TYLER III DO Jan 04, 2019 11:09
[2019-01-04 11:31] VITALS: BP 146/86
[2019-01-04] MEDS ORDERED: ASPIRIN CHEWABLE 81 MG TABLET. PO ONE (13:00)
[2019-01-04] MEDS: IV NORMAL SALINE 1000ML BAG 1,000 ML IV SCH (13:36)
--- NOTE | 2019-01-04 13:45 | NUR ---
SW following pt. PT pending, OT recommends home health. SW will continue to follow.
[2019-01-04 15:12] VITALS: BP 152/64
[2019-01-04] MEDS ORDERED: POLYETHYLENE GLYCOL 3350 17 GM PACKET. PO PRN (16:45)
[2019-01-04 23:16] VITALS: BP 123/76
[2019-01-05 00:08] LABS: HEMOGLOBIN A1C 5.1 % (4.8-5.6)
[2019-01-05] MEDS: MORPHINE SULFATE 2 MG/ML VIAL. IV PRN ×4 (01:37→22:15)
[2019-01-05] MEDS: IV NORMAL SALINE 1000ML BAG 1,000 ML IV SCH ×2 (01:41→17:42)
[2019-01-05 03:58] VITALS: BP 140/92
[2019-01-05] MEDS: HYDROcodone/APAP 5/325MG 1 TAB TABLET PO PRN ×4 (04:05→20:53)
[2019-01-05 07:15] VITALS: BP 148/73
[2019-01-05 09:37] LABS: ALBUMIN/GLOBULIN RATIO 0.8 (1.0-1.7); CALCIUM 8.3 mg/dL (8.5-10.1); CREATININE 0.9 mg/dL (0.6-1.0); GFR 79.3; POTASSIUM 3.4 mmol/L (3.5-5.1); TOTAL BILIRUBIN 0.2 mg/dL (0.2-1.0); TOTAL PROTEIN 6.8 g/dL (6.4-8.2)
[2019-01-05 09:49] LABS: BASO % 0 % (0-3); EOS # 0.2 x10^3/uL (0.0-0.7); EOS % 3 % (0-3); HEMATOCRIT 37.4 % (36.0-47.0); HEMOGLOBIN 12.2 g/dL (12.0-15.5); LYMPH # 2.4 x10^3/uL (1.0-4.8); LYMPH % 32 % (24-48); MEAN CORPUSCULAR HEMOGLOBIN 29 pg (25-35); MEAN CORPUSCULAR HGB CONC 33 g/dL (31-37); MEAN CORPUSCULAR VOLUME 87 fL (79-100); MONO # 0.4 x10^3/uL (0.0-1.1); MONO % 5 % (0-9); NEUT # 4.4 x10^3/uL (1.8-7.7); NEUT % 59 % (31-73); PLATELET COUNT 193 x10^3/uL (140-400); RED BLOOD COUNT 4.28 x10^6/uL (3.50-5.40); RED CELL DISTRIBUTION WIDTH 14.8 % (11.5-14.5); WHITE BLOOD COUNT 7.4 x10^3/uL (4.0-11.0)
[2019-01-05] MEDS: VENLAFAXINE 50 MG TABLET. PO SCH ×3 (10:25→20:53)
[2019-01-05] MEDS: ASPIRIN CHEWABLE 81 MG TABLET. PO SCH (10:25)
[2019-01-05] MEDS: amLODIPine BESYLATE 10 MG TABLET PO SCH (10:25)
[2019-01-05 11:13] VITALS: BP 150/70
--- NOTE | 2019-01-05 12:09 | PDOC ---
[employer] PROGRESS NOTE Chief Complaint Chief Complaint Fall weakness hip pain headache History of Present Illness History of Present Illness 01/05/19 Pt seen and examined. Says she is doing well. Patient was ambulating with help of nurse and with a walker. Discussed with nurse. Pt unwilling to have neuro consult. 01/04/19 Pt seen and examined. Pt was walking with help of nurse in room. Still awaiting ortho input about hip - Xray of hip was negative for fracture on admission. Pt unwilling to have neuro consult. Vitals/I&O Vitals/I&O: Vital Signs Date Time Temp Pulse Resp B/P (MAP) Pulse Ox O2 Delivery O2 Flow Rate FiO2 01/05/19 11:28 95 Room Air 01/05/19 11:13 97.5 72 18 150/70 (96) 97.5 I & O 01/04/19 01/04/19 01/05/19 15:00 23:00 07:00 Intake Total 240 ml 400 ml Balance 240 ml 400 ml Physical Exam General: Alert, Cooperative Heart: Regular rate Lungs: Clear Abdomen: Soft Extremities: Other (her left hip is slightly tender around the left flank area, above the iliac crest. Less tenderness over the greater trochanter and hip joint proper. Possible trace bruising, nothing dramatic. I was able to have her actively lift the leg from the bed, and internal and external rotation with minimal pain. She has some muscle and soft tissue soreness but no apparent bony pain with those maneuvers. I simulated weightbearing by applying pressure at the heel and she had no hip pain. She does have a discoloration on the anterior tibia as the area she reports the injury a few months ago, and there is no current break in the skin or any raised lesion, and this appears to be a remote recovering contusion without apparent fracture. The ankle alignment grossly appears normal and was nontender at the foot and ankle. Distal neurovascular function is unremarkable.) Labs Labs: Laboratory Tests Test 01/05/19 09:05 White Blood Count 7.4 x10^3/uL (4.0-11.0) Red Blood Count 4.28 x10^6/uL (3.50-5.40) Hemoglobin 12.2 g/dL (12.0-15.5) Hematocrit 37.4 % (36.0-47.0) Mean Corpuscular Volume 87 fL (79-100) Mean Corpuscular Hemoglobin 29 pg (25-35) Mean Corpuscular Hemoglobin Concent 33 g/dL (31-37) Red Cell Distribution Width 14.8 % (11.5-14.5) Platelet Count 193 x10^3/uL (140-400) Neutrophils (%) (Auto) 59 % (31-73) Lymphocytes (%) (Auto) 32 % (24-48) Monocytes (%) (Auto) 5 % (0-9) Eosinophils (%) (Auto) 3 % (0-3) Basophils (%) (Auto) 0 % (0-3) Neutrophils # (Auto) 4.4 x10^3/uL (1.8-7.7) Lymphocytes # (Auto) 2.4 x10^3/uL (1.0-4.8) Monocytes # (Auto) 0.4 x10^3/uL (0.0-1.1) Eosinophils # (Auto) 0.2 x10^3/uL (0.0-0.7) Basophils # (Auto) 0.0 x10^3/uL (0.0-0.2) Sodium Level 144 mmol/L (136-145) Potassium Level 3.4 mmol/L (3.5-5.1) Chloride Level 107 mmol/L (98-107) Carbon Dioxide Level 28 mmol/L (21-32) Anion Gap 9 (6-14) Blood Urea Nitrogen 8 mg/dL (7-20) Creatinine 0.9 mg/dL (0.6-1.0) Estimated GFR (Cockcroft-Gault) 79.3 BUN/Creatinine Ratio 9 (6-20) Glucose Level 119 mg/dL (70-99) Calcium Level 8.3 mg/dL (8.5-10.1) Total Bilirubin 0.2 mg/dL (0.2-1.0) Aspartate Amino Transf (AST/SGOT) 13 U/L (15-37) Alanine Aminotransferase (ALT/SGPT) 19 U/L (14-59) Alkaline Phosphatase 110 U/L (46-116) Total Protein 6.8 g/dL (6.4-8.2) Albumin 3.0 g/dL (3.4-5.0) Albumin/Globulin Ratio 0.8 (1.0-1.7) Review of Systems Review of Systems: Yes headache Yes weakness Assessment and Plan Assessmemt and Plan Problems Medical Problems: (1) Contusion, hip Status: Acute (2) Dizziness Status: Acute (3) Hypernatremia Status: Acute (4) Hypokalemia Status: Acute A/P Fall with weakness and dizziness Hip Pain Headache hypernatremia CT head, Chest xray, and hip xray all negative for acute processes Orthopedics was consulted, recommend weightbearing with assistance, low suspicion for fracture Pt refused neuro consult. Morphine p.r.n. and [place] 5/325 p.r.n. PT/OT, home meds, IV normal saline at 75 an hour, full code. SNU evaluation Discharge disposition pending Comment Review of Relevant I have reviewed the following items berta (where applicable) has been applied. Medications: Current Medications Medications (Trade) Dose Ordered Sig/Abner Route PRN Reason Start Time Stop Time Status Last Admin Dose Admin Aspirin (Children'S Aspirin) 81 mg 1X ONCE PO 01/04/19 13:00 01/04/19 13:01 DC 01/04/19 13:37 Aspirin (Children'S Aspirin) 81 mg [id number] PO 01/05/19 08:00 01/05/19 10:25 NIKI TYLER III DO Jan 05, 2019 12:09
[2019-01-05 15:04] VITALS: BP 135/68
--- NOTE | 2019-01-05 15:56 | NUR ---
SW consulted for SNU eval. Notes reviewed, PT recommends SNU, pt walked 250ft with a walker, standby contact guard assist. OT recommends home. Spoke with pt and explained SNU eval process and pt is not meeting criteria for SNU placement at this time. Per chart review, no other longterm needs identified at this time. Discussed regarding home health, and pt states she is agreeable but does not have a primary care physician. SW provided pt with list of PCP and informed pt she will need to call to set up start of care appointment. Pt is notified SW will attempt to find a home health agency but might be difficult since there are very few providers that take her insurance . Pt verbalized understanding. Pt has a walker at home. SW faxed referral to [facility], [facility], and [facility]. Pt acceptance pending. Physician and RN notified.
[2019-01-05 19:55] VITALS: BP 136/85
[2019-01-05 23:27] VITALS: BP 132/81
[2019-01-06] MEDS: MORPHINE SULFATE 2 MG/ML VIAL. IV PRN ×4 (00:14→11:14)
[2019-01-06] MEDS: HYDROcodone/APAP 5/325MG 1 TAB TABLET PO PRN ×3 (01:41→13:49)
[2019-01-06 03:42] VITALS: BP 135/34
[2019-01-06] MEDS: IV NORMAL SALINE 1000ML BAG 1,000 ML IV SCH ×2 (05:10→06:31)
[2019-01-06 05:53] LABS: BASO % 0 % (0-3); EOS # 0.2 x10^3/uL (0.0-0.7); EOS % 2 % (0-3); HEMATOCRIT 36.4 % (36.0-47.0); HEMOGLOBIN 12.2 g/dL (12.0-15.5); LYMPH # 2.7 x10^3/uL (1.0-4.8); LYMPH % 32 % (24-48); MEAN CORPUSCULAR HEMOGLOBIN 29 pg (25-35); MEAN CORPUSCULAR HGB CONC 33 g/dL (31-37); MEAN CORPUSCULAR VOLUME 87 fL (79-100); MONO # 0.5 x10^3/uL (0.0-1.1); MONO % 6 % (0-9); NEUT # 5.2 x10^3/uL (1.8-7.7); NEUT % 60 % (31-73); PLATELET COUNT 193 x10^3/uL (140-400); RED BLOOD COUNT 4.19 x10^6/uL (3.50-5.40); RED CELL DISTRIBUTION WIDTH 14.6 % (11.5-14.5); WHITE BLOOD COUNT 8.6 x10^3/uL (4.0-11.0)
[2019-01-06 06:15] LABS: ALBUMIN 3.1 g/dL (3.4-5.0); ALBUMIN/GLOBULIN RATIO 0.7 (1.0-1.7); CALCIUM 8.6 mg/dL (8.5-10.1); CREATININE 0.8 mg/dL (0.6-1.0); GFR 90.8; POTASSIUM 3.4 mmol/L (3.5-5.1); TOTAL BILIRUBIN 0.2 mg/dL (0.2-1.0); TOTAL PROTEIN 7.3 g/dL (6.4-8.2)
[2019-01-06 07:44] VITALS: BP 125/85
--- NOTE | 2019-01-06 09:03 | NUR ---
SW following pt. [facility] and [facility] are out of network. [facility] and [facility] declined to take pt. Pt might have to go home with self care. Addendum: 01/06/19 at 1138 by AYO SIGALA SW [facility] out of network.
[2019-01-06] MEDS: ASPIRIN CHEWABLE 81 MG TABLET. PO SCH (09:11)
[2019-01-06] MEDS: amLODIPine BESYLATE 10 MG TABLET PO SCH (09:11)
[2019-01-06] MEDS: VENLAFAXINE 50 MG TABLET. PO SCH ×2 (09:11→13:49)
--- NOTE | 2019-01-06 11:07 | PDOC ---
[employer] PROGRESS NOTE Chief Complaint Chief Complaint Fall weakness hip pain headache History of Present Illness History of Present Illness 01/06/19 Pt seen and examined. Doing well today. Able to walk with assistance. OK to discharge home today. 01/05/19 Pt seen and examined. Says she is doing well. Patient was ambulating with help of nurse and with a walker. Discussed with nurse. Pt unwilling to have neuro consult. 01/04/19 Pt seen and examined. Pt was walking with help of nurse in room. Still awaiting ortho input about hip - Xray of hip was negative for fracture on admission. Pt unwilling to have neuro consult. Vitals/I&O Vitals/I&O: Vital Signs Date Time Temp Pulse Resp B/P (MAP) Pulse Ox O2 Delivery O2 Flow Rate FiO2 01/06/19 09:11 84 125/85 01/06/19 08:00 Room Air 01/06/19 07:44 98.6 20 94 98.6 I & O 01/05/19 01/05/19 01/06/19 15:00 23:00 07:00 Intake Total 880 ml 400 ml 240 ml Output Total 400 ml 1200 ml Balance 880 ml 0 ml -960 ml Physical Exam General: Alert, Cooperative Heart: Regular rate, No murmurs Lungs: Clear Abdomen: Soft Extremities: No clubbing, No edema, Other (her left hip is slightly tender around the left flank area, no sign of bruising) Skin: No rashes, No breakdown Labs Labs: Laboratory Tests Test 01/06/19 04:26 White Blood Count 8.6 x10^3/uL (4.0-11.0) Red Blood Count 4.19 x10^6/uL (3.50-5.40) Hemoglobin 12.2 g/dL (12.0-15.5) Hematocrit 36.4 % (36.0-47.0) Mean Corpuscular Volume 87 fL (79-100) Mean Corpuscular Hemoglobin 29 pg (25-35) Mean Corpuscular Hemoglobin Concent 33 g/dL (31-37) Red Cell Distribution Width 14.6 % (11.5-14.5) Platelet Count 193 x10^3/uL (140-400) Neutrophils (%) (Auto) 60 % (31-73) Lymphocytes (%) (Auto) 32 % (24-48) Monocytes (%) (Auto) 6 % (0-9) Eosinophils (%) (Auto) 2 % (0-3) Basophils (%) (Auto) 0 % (0-3) Neutrophils # (Auto) 5.2 x10^3/uL (1.8-7.7) Lymphocytes # (Auto) 2.7 x10^3/uL (1.0-4.8) Monocytes # (Auto) 0.5 x10^3/uL (0.0-1.1) Eosinophils # (Auto) 0.2 x10^3/uL (0.0-0.7) Basophils # (Auto) 0.0 x10^3/uL (0.0-0.2) Sodium Level 144 mmol/L (136-145) Potassium Level 3.4 mmol/L (3.5-5.1) Chloride Level 106 mmol/L (98-107) Carbon Dioxide Level 29 mmol/L (21-32) Anion Gap 9 (6-14) Blood Urea Nitrogen 12 mg/dL (7-20) Creatinine 0.8 mg/dL (0.6-1.0) Estimated GFR (Cockcroft-Gault) 90.8 BUN/Creatinine Ratio 15 (6-20) Glucose Level 85 mg/dL (70-99) Calcium Level 8.6 mg/dL (8.5-10.1) Total Bilirubin 0.2 mg/dL (0.2-1.0) Aspartate Amino Transf (AST/SGOT) 13 U/L (15-37) Alanine Aminotransferase (ALT/SGPT) 19 U/L (14-59) Alkaline Phosphatase 114 U/L (46-116) Total Protein 7.3 g/dL (6.4-8.2) Albumin 3.1 g/dL (3.4-5.0) Albumin/Globulin Ratio 0.7 (1.0-1.7) Review of Systems Review of Systems: No N/V No chest pain No dyspnea on exertion Assessment and Plan Assessmemt and Plan Problems Medical Problems: (1) Contusion, hip Status: Acute (2) Dizziness Status: Acute (3) Hypernatremia Status: Acute (4) Hypokalemia Status: Acute A/P Fall with weakness and dizziness on admission Hip Pain Headache hypernatremia CT head, Chest xray, and hip xray all negative for acute processes Orthopedics was consulted, recommend weightbearing with assistance, low suspicion for fracture Pt refused neuro consult. [place] 5/325 p.r.n. PT/OT, home meds full code. DVT prophylaxis Discharge home today Comment Review of Relevant I have reviewed the following items berta (where applicable) has been applied. NIKI TYLER III DO Jan 06, 2019 11:07
--- NOTE | 2019-01-06 11:36 | NUR ---
SW following pt. Discussed with pt about not being able to find a home health provider. SW also educated pt regarding establishing care with a PCP in the community. Pt is provided with list of [facility] PCP list. Pt verbalized understanding. Discussed with RN and Physician.
[2019-01-06 11:46] VITALS: BP 137/89
--- NOTE | 2019-01-06 13:52 | NUR ---
SW arranged transport via [employer] between [id number]. Pt verified her address and reported her daughter in law will be leaving a de la cruz for her by the door mat. Discussed with RN.
[2019-01-06 15:00] VITALS: BP 154/85
--- NOTE | 2019-01-06 16:57 | NUR ---
Pt discharged home. Discharge teaching and prescriptions handed to pt. Transportation provided by [employer].
--- NOTE | 2019-01-07 12:31 | DS ---
DATE OF DISCHARGE: 01/06/2019 ADMISSION DIAGNOSIS: Fall with the right hip pain and knee pain. DISCHARGE DIAGNOSIS: Resolving falls, right hip pain, knee pain. CONSULTS: Orthopedics. PROCEDURES: None. HOSPITAL COURSE: The patient is a pleasant middle-aged female, who basically fell. She struck her bathtub and had some hip pain and diffuse left-sided pain. We admitted her, consulted physical therapy and occupational therapy. We gave her pain medications. Yesterday, we were concerned in getting her to long-term, but she did have long-term benefits, so we discharged to home with home health. DISPOSITION: Home with home health. ACTIVITY: As tolerated. DIET: Low sodium. MEDICATIONS: Please see MRAD. TOTAL TIME: 32 minutes. NIKI TYLER DO DR: SASHA/rodolfo JOB#: [id number] / [id number]
--- NOTE | 2019-01-14 09:33 | DS ---
DATE OF DISCHARGE: 01/06/2019 ADDENDUM DISCHARGE DISPOSITION: Home without home health. NIKI TYLER DO DR: Luis JOB#: [id number] / [id number]
== END 2019-01-06 16:45 | disposition home or self-care (01) | DRG 605 ==
LOC: ER 04:46 → 6 SOUTH 07:10
PROVIDERS: ADMIT Family Medicine; ATTEND Family Medicine
DX: S70.02XA Contusion of left hip, initial encounter (principal); E87.0 Hyperosmolality and hypernatremia; E87.6 Hypokalemia; I10 Essential (primary) hypertension; M06.9 Rheumatoid arthritis, unspecified; M79.7 Fibromyalgia; Z91.14 Patient's other noncompliance with medication regimen; M19.90 Unspecified osteoarthritis, unspecified site; G89.29 Other chronic pain; Z90.710 Acquired absence of both cervix and uterus; Z88.8 Allergy status to other drugs, medicaments and biological substances; Z88.0 Allergy status to penicillin; Z82.49 Family history of ischemic heart disease and other diseases of the circulatory system; W18.39XA Other fall on same level, initial encounter; Z91.040 Latex allergy status; Y93.89 Activity, other specified; Y92.89 Other specified places as the place of occurrence of the external cause; Y99.8 Other external cause status
CPT/HCPCS: 36415; 70450; 71045; 72125; 73502; 80053; 81001; 82553; 83036; 83605; 83735; 84484; 85025; 85610; 85730; 87086; 93005; 96361; 96374; 96375; J1885; J2270; J2360; J7030; J8597; 97110; 97116; 97535; 99285-25; G0378

== ENCOUNTER 2019-02-11 22:22 | Observation (INO) | payer OTHER ==
[~2019-02-11] VITALS: Ht 162.6 cm; Wt 111.1 kg
[~2019-02-11 22:22] MED LIST changes: +VENL150C PO
[2019-02-11 23:00] LABS: BILIRUBIN,URINE NEGATIVE (NEG); CLARITY,URINE CLEAR; COLOR,URINE YELLOW; NITRITE,URINE NEGATIVE (NEG); PH,URINE 6.5; PROTEIN,URINE NEGATIVE (NEG-TRACE)
[2019-02-11] MEDS ORDERED: ONDANSETRON ODT 4 MG TAB.RAPDIS. PO ONE (23:00)
--- NOTE | 2019-02-11 23:05 | PHYS DOC ---
Past Medical History Past Medical History: Hypertension Additional Past Medical Histor: RHEUMATOID ARTHRITIS, chronic back pain Past Surgical History: Hysterectomy Additional Past Surgical Histo: ABLASION, DVT REMOVED Alcohol Use: Occasionally Drug Use: Marijuana Adult General Chief Complaint Chief Complaint: NAUSEA/VOMITING/DIARRHA HPI HPI Patient is a 53 year old female with history of rheumatoid arthritis who presents acute onset nausea vomiting and watery diarrhea. Onset 12 hours prior to ED arrival. Reports pain, tenderness with palpation and worse after vomiting. Previous cholecystectomy. No history of bowel obstructions. No fevers chills or sweats. Denies chest pain palpitations shortness of breath. Does report feeling dizzy upon standing. Will to tolerate some liquids and home medications. No other acute symptoms or complaints[] Review of Systems Review of Systems Review symptoms as per history of present illness. All other review symptoms are negative. All other systems were reviewed and found to be within normal limits, except as documented in this note. Current Medications Current Medications Current Medications Medications (Trade) Dose Ordered Sig/Abner Start Time Stop Time Status Last Admin Dose Admin Ceftriaxone Sodium (Rocephin) 1 gm 1X ONCE 02/12/19 01:45 02/12/19 01:46 DC 02/12/19 02:04 1 GM Famotidine (Pepcid Vial) 20 mg 1X ONCE 02/11/19 23:30 02/11/19 23:31 DC 02/11/19 23:54 20 MG Info (CONTRAST GIVEN -- Rx MONITORING) 1 each PRN DAILY PRN 02/12/19 01:00 02/14/19 00:59 Iohexol (Omnipaque 300 Mg/ml) 75 ml 1X ONCE 02/12/19 01:00 02/12/19 01:01 DC 02/12/19 00:58 75 ML Morphine Sulfate (Morphine Sulfate) 2 mg PRN Q2HR PRN 02/12/19 01:30 02/13/19 01:29 Ondansetron HCl (Zofran Odt) 4 mg 1X ONCE 02/11/19 23:00 02/12/19 00:27 DC Ondansetron HCl (Zofran) 4 mg PRN Q8HRS PRN 02/12/19 01:30 02/13/19 01:29 Sodium Chloride 1,000 ml @ 120 mls/hr Q8H20M 02/12/19 02:00 02/13/19 01:59 02/12/19 02:04 120 MLS/HR Allergies Allergies Allergies Coded Allergies Type Severity Reaction Last Updated Verified Penicillins Allergy Intermediate 08/04/14 Yes lamotrigine Allergy Intermediate 01/03/19 Yes latex Allergy Intermediate 08/04/14 Yes lisinopril Allergy Intermediate 08/04/14 Yes Physical Exam Physical Exam Constitutional: Well developed, well nourished, anxious, moderate discomfort secondary to pain. [] HENT: Normocephalic, atraumatic, bilateral external ears normal, oropharynx moist, no oral exudates, nose normal. [] Eyes: PERRLA, EOMI, conjunctiva normal, no discharge. [] Neck: Normal range of motion, no tenderness, supple, no stridor. [] Cardiovascular:Heart rate regular rhythm, no murmur [] Lungs & Thorax: Bilateral breath sounds clear to auscultation [] Abdomen: Bowel sounds normal, soft, right upper quadrant pain, mild tenderness. [] Skin: Warm, dry, no erythema, no rash. [] Back: No tenderness, no CVA tenderness. [] Extremities: No tenderness no edema. [] Neurologic: Alert and oriented X 3, normal motor function, normal sensory function, no focal deficits noted. [] Psychologic: Affect normal, judgement normal, mood normal. [] Current Patient Data Vital Signs Vital Signs Date Time Temp Pulse Resp B/P (MAP) Pulse Ox O2 Delivery O2 Flow Rate FiO2 02/12/19 01:45 16 98 Room Air 02/12/19 00:56 87 137/78 (97) 02/11/19 22:22 98.0 98.0 Lab Values Laboratory Tests Test 02/11/19 22:40 02/11/19 23:45 Urine Color Yellow Urine Clarity Clear Urine pH 6.5 Urine Specific [place] 1.020 Urine Protein Negative mg/dL (NEG-TRACE) Urine Glucose (UA) Negative mg/dL (NEG) Urine Ketones (Stick) Negative mg/dL (NEG) Urine Blood Large (NEG) Urine Nitrite Negative (NEG) Urine Bilirubin Negative (NEG) Urine Urobilinogen Dipstick 1.0 mg/dL (0.2 mg/dL) Urine Leukocyte Esterase Small (NEG) Urine RBC 6-10 /HPF (0-2) Urine WBC 5-10 /HPF (0-4) Urine Squamous Epithelial Cells Mod /LPF Urine Bacteria Few /HPF (0-FEW) Urine Mucus Mod /LPF White Blood Count 11.7 x10^3/uL (4.0-11.0) H Red Blood Count 4.64 x10^6/uL (3.50-5.40) Hemoglobin 13.4 g/dL (12.0-15.5) Hematocrit 39.7 % (36.0-47.0) Mean Corpuscular Volume 86 fL (79-100) Mean Corpuscular Hemoglobin 29 pg (25-35) Mean Corpuscular Hemoglobin Concent 34 g/dL (31-37) Red Cell Distribution Width 14.1 % (11.5-14.5) Platelet Count 212 x10^3/uL (140-400) Neutrophils (%) (Auto) 78 % (31-73) H Lymphocytes (%) (Auto) 16 % (24-48) L Monocytes (%) (Auto) 4 % (0-9) Eosinophils (%) (Auto) 1 % (0-3) Basophils (%) (Auto) 0 % (0-3) Neutrophils # (Auto) 9.1 x10^3/uL (1.8-7.7) H Lymphocytes # (Auto) 1.9 x10^3/uL (1.0-4.8) Monocytes # (Auto) 0.5 x10^3/uL (0.0-1.1) Eosinophils # (Auto) 0.1 x10^3/uL (0.0-0.7) Basophils # (Auto) 0.0 x10^3/uL (0.0-0.2) Sodium Level 141 mmol/L (136-145) Potassium Level 3.3 mmol/L (3.5-5.1) L Chloride Level 104 mmol/L (98-107) Carbon Dioxide Level 31 mmol/L (21-32) Anion Gap 6 (6-14) Blood Urea Nitrogen 19 mg/dL (7-20) Creatinine 1.0 mg/dL (0.6-1.0) Estimated GFR (Cockcroft-Gault) 70.2 BUN/Creatinine Ratio 19 (6-20) Glucose Level 104 mg/dL (70-99) H Calcium Level 8.8 mg/dL (8.5-10.1) Total Bilirubin 0.4 mg/dL (0.2-1.0) Aspartate Amino Transferase (AST) 12 U/L (15-37) L Alanine Aminotransferase (ALT) 18 U/L (14-59) Alkaline Phosphatase 127 U/L (46-116) H Troponin I Quantitative < 0.017 ng/mL (0.000-0.055) Total Protein 7.6 g/dL (6.4-8.2) Albumin 3.3 g/dL (3.4-5.0) L Albumin/Globulin Ratio 0.8 (1.0-1.7) L Lipase 98 U/L (73-393) Laboratory Tests 02/11/19 23:45 Laboratory Tests 02/11/19 23:45 EKG EKG [] Radiology/Procedures Radiology/Procedures [CT abdomen/pelvis: Possible cystitis, adrenal masses present per radiology report] Course & Med Decision Making Course & Med Decision Making Pertinent Labs and Imaging studies reviewed. (See chart for details) [Patient with persistent nausea abdominal pain despite treatment in the emergency department. Suspect GI illness prevalent community. Patient also developed chest pain atypical while in the ED. EKG nonacute. Will admit to hospitalist service for further evaluation and treatment.] Dragon Disclaimer Dragon Disclaimer This electronic medical record was generated, in whole or in part, using a voice recognition dictation system. Departure Departure Impression: Primary Impression: Abdominal pain Additional Impressions: Vomiting and diarrhea Chest pain Urinary tract infection Disposition: ADMITTED INPATIENT Condition: STABLE Referrals: UNKNOWN PCP NAME (PCP) Problem Qualifiers VIKASH PATRICK DO Feb 11, 2019 23:05
[2019-02-11 23:06] LABS: BACTERIA,URINE FEW /HPF (0-FEW); SQUAMOUS EPITHELIAL CELL,UR MOD /LPF
[2019-02-11] MEDS ORDERED: MORPHINE SULFATE 4 MG/ML VIAL. IV ONE (23:30)
[2019-02-11] MEDS ORDERED: ONDANSETRON PF 4 MG/2 ML VIAL. IVP ONE (23:30)
[2019-02-11] MEDS ORDERED: FAMOTIDINE 20 MG/2 ML VIAL IVP ONE (23:30)
[2019-02-11 23:55] LABS: BASO % 0 % (0-3); EOS # 0.1 x10^3/uL (0.0-0.7); EOS % 1 % (0-3); HEMATOCRIT 39.7 % (36.0-47.0); HEMOGLOBIN 13.4 g/dL (12.0-15.5); LYMPH # 1.9 x10^3/uL (1.0-4.8); LYMPH % 16 % (24-48); MEAN CORPUSCULAR HEMOGLOBIN 29 pg (25-35); MEAN CORPUSCULAR HGB CONC 34 g/dL (31-37); MEAN CORPUSCULAR VOLUME 86 fL (79-100); MONO # 0.5 x10^3/uL (0.0-1.1); MONO % 4 % (0-9); NEUT # 9.1 x10^3/uL (1.8-7.7); NEUT % 78 % (31-73); PLATELET COUNT 212 x10^3/uL (140-400); RED BLOOD COUNT 4.64 x10^6/uL (3.50-5.40); RED CELL DISTRIBUTION WIDTH 14.1 % (11.5-14.5); WHITE BLOOD COUNT 11.7 x10^3/uL (4.0-11.0)
[2019-02-12 00:12] LABS: CALCIUM 8.8 mg/dL (8.5-10.1); GFR 70.2; POTASSIUM 3.3 mmol/L (3.5-5.1)
[2019-02-12 00:19] LABS: ALBUMIN 3.3 g/dL (3.4-5.0); ALBUMIN/GLOBULIN RATIO 0.8 (1.0-1.7); TOTAL BILIRUBIN 0.4 mg/dL (0.2-1.0); TOTAL PROTEIN 7.6 g/dL (6.4-8.2)
[2019-02-12] MEDS ORDERED: CONTRAST GIVEN. MC PRN (01:00)
[2019-02-12] MEDS ORDERED: MORPHINE SULFATE 4 MG/ML VIAL. IV ONE (01:00)
[2019-02-12] MEDS ORDERED: IOHEXOL 300 MG/ML 100ML VIAL. IV ONE (01:00)
--- NOTE | 2019-02-12 01:13 | RAD ---
EXAM: CT Abdomen and Pelvis with IV contrast CLINICAL HISTORY: . COMPARISON: none TECHNIQUE: Helical CT of the abdomen and pelvis was performed following the administration of intravenous contrast. Axial, coronal and sagittal reformatted images were generated. PQRS compliance statement - One or more of the following individualized dose reduction techniques were utilized for this study: 1. Automated exposure control 2. Adjustment of the mA and/or kV according to patient size 3. Use of iterative reconstruction technique FINDINGS: Lower chest: 4 mm left lower lobe lung nodule is seen. Linear opacities in the lower lobes likely scarring/atelectasis. Calcified granuloma in left lower lobe as well as mediastinal and hilar calcified lymph nodes are seen. Abdomen and Pelvis: No focal liver lesion. Cholecystectomy clips are seen. No biliary duct dilatation. Pancreas is unremarkable. Spleen is normal in appearance. Right adrenal gland is unremarkable. A 2 indeterminate left adrenal nodules seen measuring 3.3 x 1.8 cm and 2.9 x 2.2 cm. Symmetric nephrograms. Multiple bilateral nonobstructing renal calculi are seen. Ureters are normal. Bladder thickening may be seen with cystitis. Moderate colonic stool content is seen. No small or large bowel dilatation to suggest bowel obstruction. Appendix is normal. No abdominal or pelvic ascites. No abdominal or pelvic lymphadenopathy. Mildly prominent mesenteric lymph nodes are seen. Fat-containing periumbilical hernia. Bones: Symphysis pubis degenerative changes are seen. Lower lumbar spine degenerative changes are noted. Thoracolumbar scoliosis. IMPRESSION: 1. No bowel obstruction. 2. Appendix is normal. 3. Mild bladder wall thickening may be seen with cystitis. 4. 2 indeterminate left adrenal nodules. These can be compared to prior examination if available or further assessed by MRI if not previously performed. Electronically signed by: Larry Porter MD (02/12/2019 1:10 AM) [place] [id number]
[2019-02-12] MEDS ORDERED: ONDANSETRON PF 4 MG/2 ML VIAL. IV PRN (01:30)
[2019-02-12] MEDS ORDERED: cefTRIAXone IV Push 1 GM VIAL. IVP ONE (01:45)
[2019-02-12] MEDS: IV NORMAL SALINE 1000ML BAG 1,000 ML IV SCH ×2 (02:04→10:44)
[2019-02-12] MEDS: MORPHINE SULFATE 2 MG/ML VIAL. IV PRN ×2 (02:53→10:47)
[2019-02-12] MEDS ORDERED: METO25TA4 PO (02:57)
[2019-02-12] MEDS ORDERED: HYDR-2759 PO (02:57)
[2019-02-12] MEDS ORDERED: AMLO10TA8 PO (02:57)
[2019-02-12 02:59] VITALS: BP 127/76
--- NOTE | 2019-02-12 03:29 | NUR ---
The patient, RALPH ZEE, 53 y/o, F admitted by DIXIE SPARKS MD, was given written information regarding hospital policies, unit procedures and contact persons. Valuables were checked and left in room with patient. Vitals stable, patient is resting in bed , call light in reach
[2019-02-12 07:00] VITALS: BP 116/67
[2019-02-12] MEDS ORDERED: HYDROcodone/APAP 5/325MG 1 TAB TABLET PO PRN (08:15)
[2019-02-12] MEDS ORDERED: NON FORMULARY ITEM (Dextroamphetamine/Amphetamine (Adderall Xr 30 Mg Capsule) 1 CAP) PO SCH (09:00)
[2019-02-12] MEDS ORDERED: METOPROLOL TART IMMED RELEASE 25 MG TABLET. PO SCH (09:00)
[2019-02-12] MEDS ORDERED: amLODIPine BESYLATE 10 MG TABLET PO SCH (09:00)
[2019-02-12] MEDS ORDERED: POTASSIUM CHLORIDE 20 MEQ TABLET.ER. PO ONE (09:00)
[2019-02-12] MEDS ORDERED: VENLAFAXINE XR 37.5 MG CAP.ER.24H. PO SCH (09:00)
[2019-02-12 11:00] VITALS: BP 123/76
--- NOTE | 2019-02-12 12:13 | PDOC1 ---
History and Physical Date of Admission Date of Admission DATE: 02/12/19 TIME: 12:08 Identification/Chief Complaint Chief Complaint n/v/ LBM x 3 days Source Source: Caregiver, Chart review, Patient History of Present Illness History of Present Illness n./v/ abd pain and L:BM x 3 days brought by son, LAbs WBC 11, no fevers, ate breakfast fine no emesis, NOmore lBM thsi AM CT abd neg - i gave a copy - IF does well alter OM, can go home later PM Trop x 3 neg, no CP HAd some transient numbness now gone TRaige note: * PT ARRIVES TO ED VIA POV. PT WHEELED INTO LOBBY BY SON. PT WHEELED TO ROOM BY ED STAFF. PT SAYS SHE STARTED THIS MORNING WITH NAUSEA, VOMITING, 3 LOOSE STOOLS, LT ARM PAIN, AND HEADACHE. Past Medical History Cardiovascular: HTN Rheumatologic: Fibromyalgia Past Surgical History Past Surgical History: No pertinent history Family History Family History: Heart Disease, High Cholestrol, Hypertension Social History Smoke: No ALCOHOL: none Drugs: None Current Problem List Problem List Problems Medical Problems: (1) Abdominal pain Status: Acute (2) Chest pain Status: Acute (3) Urinary tract infection Status: Acute (4) Vomiting and diarrhea Status: Acute Current Medications Current Medications Current Medications Ondansetron HCl (Zofran Odt) 4 mg 1X ONCE PO ; Start 02/11/19 at 23:00; Stop 02/12/19 at 00:27; Status DC Ondansetron HCl (Zofran) 8 mg 1X ONCE IVP Last administered on 02/11/19at 23:53; Start 02/11/19 at 23:30; Stop 02/11/19 at 23:31; Status DC Famotidine (Pepcid Vial) 20 mg 1X ONCE IVP Last administered on 02/11/19at 23:54; Start 02/11/19 at 23:30; Stop 02/11/19 at 23:31; Status DC Morphine Sulfate (Morphine Sulfate) 8 mg 1X ONCE IV Last administered on 02/11/19at 23:54; Start 02/11/19 at 23:30; Stop 02/11/19 at 23:31; Status DC Iohexol (Omnipaque 300 Mg/ml) 75 ml 1X ONCE IV Last administered on 02/12/19at 00:58; Start 02/12/19 at 01:00; Stop 02/12/19 at 01:01; Status DC Morphine Sulfate (Morphine Sulfate) 4 mg 1X ONCE IV Last administered on 02/12/19at 01:08; Start 02/12/19 at 01:00; Stop 02/12/19 at 01:01; Status DC Info (CONTRAST GIVEN -- Rx MONITORING) 1 each PRN DAILY PRN MC SEE COMMENTS; Start 02/12/19 at 01:00; Stop 02/14/19 at 00:59 Ceftriaxone Sodium (Rocephin) 1 gm 1X ONCE IVP Last administered on 02/12/19at 02:04; Start 02/12/19 at 01:45; Stop 02/12/19 at 01:46; Status DC Ondansetron HCl (Zofran) 4 mg PRN Q8HRS PRN IV NAUSEA/VOMITING; Start 02/12/19 at 01:30; Stop 02/13/19 at 01:29 Morphine Sulfate (Morphine Sulfate) 2 mg PRN Q2HR PRN IV SEVERE PAIN 7-10 Last administered on 02/12/19at 10:47; Start 02/12/19 at 01:30; Stop 02/13/19 at 01:29 Sodium Chloride 1,000 ml @ 120 mls/hr Q8H20M IV Last administered on 02/12/19at 10:44; Start 02/12/19 at 02:00; Stop 02/13/19 at 01:59 Amlodipine Besylate (Norvasc) 10 mg DAILY PO Last administered on 02/12/19at 09:11; Start 02/12/19 at 09:00 Acetaminophen/ Hydrocodone Bitart (Lortab 5/325) 1 tab PRN QID PRN PO PAIN Last administered on 02/12/19at 09:11; Start 02/12/19 at 08:15 Metoprolol Tartrate (Lopressor) 25 mg BID PO Last administered on 02/12/19at 09:11; Start 02/12/19 at 09:00 Non-Formulary Medication (Dextroamphetamine/ Amphetamine (Adderall Xr 30 Mg Capsule)) 1 cap DAILY PO ; Start 02/12/19 at 09:00; Status UNV Venlafaxine HCl (Effexor Xr) 150 mg DAILY PO Last administered on 02/12/19at 09:12; Start 02/12/19 at 09:00 Potassium Chloride (Klor-Con) 40 meq 1X ONCE PO Last administered on 02/12/19at 09:12; Start 02/12/19 at 09:00; Stop 02/12/19 at 09:01; Status DC Active Scripts Active Reported Hydrocodone-Acetamin 5-325 mg (Hydrocodone/Acetaminophen) 1 Each Tablet 5-325 Mg PO PRN Q4-6HRS PRN Metoprolol Tartrate 25 Mg Tablet 25 Mg PO BID Amlodipine Besylate 10 Mg Tablet 10 Mg PO DAILY Effexor Xr (Venlafaxine Hcl) 150 Mg Cap.er.24h 150 Mg PO DAILY Adderall Xr 30 Mg Capsule (Dextroamphetamine/Amphetamine) 30 Mg Cap.er.24h 1 Cap PO DAILY Allergies Allergies: Coded Allergies: Penicillins (Verified Allergy, Intermediate, 08/04/14) lamotrigine (Verified Allergy, Intermediate, 01/03/19) latex (Verified Allergy, Intermediate, 08/04/14) lisinopril (Verified Allergy, Intermediate, 08/04/14) ROS Review of System neg 14 pt now as i review with her Physical Exam General: Alert, Oriented X3, Cooperative, No acute distress HEENT: Atraumatic, PERRLA, EOMI Lungs: Clear to auscultation, Normal air movement Heart: S1S2, RRR, no thrills, no rubs, no gallops, no murmurs Cardiovascular: S1, S2 Breasts: Normal, Rt breast nml w/o mass, Lt breast nml w/o mass, Nipples normal Abdomen: Normal bowel sounds, Soft, No tenderness, No hepatosplenomegaly, No masses Rectal Exam: not examined PELVIC: Nml ext genitalia Extremities: No clubbing, No cyanosis, No edema, Normal pulses, No tenderness/swelling Skin: No rashes, No breakdown, No significant lesion Neuro: Normal gait, Normal speech, Strength at 5/5 X4 ext, Normal tone, Sensation intact, Cranial nerves 3-12 NL, Reflexes 2+ Psych/Mental Status: Mental status NL, Mood NL Vitals Vitals Vital Signs Date Time Temp Pulse Resp B/P (MAP) Pulse Ox O2 Delivery O2 Flow Rate FiO2 02/12/19 10:47 Room Air 02/12/19 09:11 90 116/67 02/12/19 07:00 98.0 18 96 98.0 Labs Labs Laboratory Tests Test 02/11/19 22:40 02/11/19 23:45 02/12/19 03:30 02/12/19 07:25 Urine Color Yellow Urine Clarity Clear Urine pH 6.5 Urine Specific [place] 1.020 Urine Protein Negative mg/dL (NEG-TRACE) Urine Glucose (UA) Negative mg/dL (NEG) Urine Ketones (Stick) Negative mg/dL (NEG) Urine Blood Large (NEG) Urine Nitrite Negative (NEG) Urine Bilirubin Negative (NEG) Urine Urobilinogen Dipstick 1.0 mg/dL (0.2 mg/dL) Urine Leukocyte Esterase Small (NEG) Urine RBC 6-10 /HPF (0-2) Urine WBC 5-10 /HPF (0-4) Urine Squamous Epithelial Cells Mod /LPF Urine Bacteria Few /HPF (0-FEW) Urine Mucus Mod /LPF White Blood Count 11.7 x10^3/uL (4.0-11.0) Red Blood Count 4.64 x10^6/uL (3.50-5.40) Hemoglobin 13.4 g/dL (12.0-15.5) Hematocrit 39.7 % (36.0-47.0) Mean Corpuscular Volume 86 fL (79-100) Mean Corpuscular Hemoglobin 29 pg (25-35) Mean Corpuscular Hemoglobin Concent 34 g/dL (31-37) Red Cell Distribution Width 14.1 % (11.5-14.5) Platelet Count 212 x10^3/uL (140-400) Neutrophils (%) (Auto) 78 % (31-73) Lymphocytes (%) (Auto) 16 % (24-48) Monocytes (%) (Auto) 4 % (0-9) Eosinophils (%) (Auto) 1 % (0-3) Basophils (%) (Auto) 0 % (0-3) Neutrophils # (Auto) 9.1 x10^3/uL (1.8-7.7) Lymphocytes # (Auto) 1.9 x10^3/uL (1.0-4.8) Monocytes # (Auto) 0.5 x10^3/uL (0.0-1.1) Eosinophils # (Auto) 0.1 x10^3/uL (0.0-0.7) Basophils # (Auto) 0.0 x10^3/uL (0.0-0.2) Sodium Level 141 mmol/L (136-145) Potassium Level 3.3 mmol/L (3.5-5.1) Chloride Level 104 mmol/L (98-107) Carbon Dioxide Level 31 mmol/L (21-32) Anion Gap 6 (6-14) Blood Urea Nitrogen 19 mg/dL (7-20) Creatinine 1.0 mg/dL (0.6-1.0) Estimated GFR (Cockcroft-Gault) 70.2 BUN/Creatinine Ratio 19 (6-20) Glucose Level 104 mg/dL (70-99) Calcium Level 8.8 mg/dL (8.5-10.1) Total Bilirubin 0.4 mg/dL (0.2-1.0) Aspartate Amino Transf (AST/SGOT) 12 U/L (15-37) Alanine Aminotransferase (ALT/SGPT) 18 U/L (14-59) Alkaline Phosphatase 127 U/L (46-116) Troponin I Quantitative < 0.017 ng/mL (0.000-0.055) < 0.017 ng/mL (0.000-0.055) < 0.017 ng/mL (0.000-0.055) Total Protein 7.6 g/dL (6.4-8.2) Albumin 3.3 g/dL (3.4-5.0) Albumin/Globulin Ratio 0.8 (1.0-1.7) Lipase 98 U/L (73-393) Laboratory Tests Test 02/11/19 22:40 02/11/19 23:45 02/12/19 03:30 02/12/19 07:25 Urine Color Yellow Urine Clarity Clear Urine pH 6.5 Urine Specific [place] 1.020 Urine Protein Negative mg/dL (NEG-TRACE) Urine Glucose (UA) Negative mg/dL (NEG) Urine Ketones (Stick) Negative mg/dL (NEG) Urine Blood Large (NEG) Urine Nitrite Negative (NEG) Urine Bilirubin Negative (NEG) Urine Urobilinogen Dipstick 1.0 mg/dL (0.2 mg/dL) Urine Leukocyte Esterase Small (NEG) Urine RBC 6-10 /HPF (0-2) Urine WBC 5-10 /HPF (0-4) Urine Squamous Epithelial Cells Mod /LPF Urine Bacteria Few /HPF (0-FEW) Urine Mucus Mod /LPF White Blood Count 11.7 x10^3/uL (4.0-11.0) Red Blood Count 4.64 x10^6/uL (3.50-5.40) Hemoglobin 13.4 g/dL (12.0-15.5) Hematocrit 39.7 % (36.0-47.0) Mean Corpuscular Volume 86 fL (79-100) Mean Corpuscular Hemoglobin 29 pg (25-35) Mean Corpuscular Hemoglobin Concent 34 g/dL (31-37) Red Cell Distribution Width 14.1 % (11.5-14.5) Platelet Count 212 x10^3/uL (140-400) Neutrophils (%) (Auto) 78 % (31-73) Lymphocytes (%) (Auto) 16 % (24-48) Monocytes (%) (Auto) 4 % (0-9) Eosinophils (%) (Auto) 1 % (0-3) Basophils (%) (Auto) 0 % (0-3) Neutrophils # (Auto) 9.1 x10^3/uL (1.8-7.7) Lymphocytes # (Auto) 1.9 x10^3/uL (1.0-4.8) Monocytes # (Auto) 0.5 x10^3/uL (0.0-1.1) Eosinophils # (Auto) 0.1 x10^3/uL (0.0-0.7) Basophils # (Auto) 0.0 x10^3/uL (0.0-0.2) Sodium Level 141 mmol/L (136-145) Potassium Level 3.3 mmol/L (3.5-5.1) Chloride Level 104 mmol/L (98-107) Carbon Dioxide Level 31 mmol/L (21-32) Anion Gap 6 (6-14) Blood Urea Nitrogen 19 mg/dL (7-20) Creatinine 1.0 mg/dL (0.6-1.0) Estimated GFR (Cockcroft-Gault) 70.2 BUN/Creatinine Ratio 19 (6-20) Glucose Level 104 mg/dL (70-99) Calcium Level 8.8 mg/dL (8.5-10.1) Total Bilirubin 0.4 mg/dL (0.2-1.0) Aspartate Amino Transf (AST/SGOT) 12 U/L (15-37) Alanine Aminotransferase (ALT/SGPT) 18 U/L (14-59) Alkaline Phosphatase 127 U/L (46-116) Troponin I Quantitative < 0.017 ng/mL (0.000-0.055) < 0.017 ng/mL (0.000-0.055) < 0.017 ng/mL (0.000-0.055) Total Protein 7.6 g/dL (6.4-8.2) Albumin 3.3 g/dL (3.4-5.0) Albumin/Globulin Ratio 0.8 (1.0-1.7) Lipase 98 U/L (73-393) VTE Prophylaxis Ordered VTE Prophylaxis Devices: Yes VTE Pharmacological Prophylaxi: Yes Assessment/Plan Assessment/Plan n/v. abd pain ALL RESOLVED on ARRIVAL with NORMAL CT Recent fall - msk pain? LEukocytsois - not needing inpt criteria, monitor as OP PCP, diarrhea? PLAn:home later if cont to do well this PM Lidoderm patch in chart" CLARE Rosales RN, CHERRIE Y MD Feb 12, 2019 12:13
[2019-02-12] MEDS ORDERED: ONDA4TAB7 PO (12:14)
[2019-02-12] MEDS ORDERED: LIDO1ADH4 TP (12:14)
[2019-02-12] MEDS ORDERED: LOPERAMIDE 2 MG CAPSULE PO PRN (12:15)
--- NOTE | 2019-02-12 12:15 | PDOC3 ---
Discharge Summary Visit Information Date of Admission: Feb 11, 2019 Date of Discharge: Feb 12, 2019 Admitting Diagnosis Comment: n/v. abd pain ALL RESOLVED on ARRIVAL with NORMAL CT Recent fall - msk pain? LEukocytsois - not needing inpt criteria, monitor as OP PCP, diarrhea? PLAn:home later if cont to do well this PM Lidoderm patch in chart" Keron VARGAS GEm, Final Diagnosis Problems Medical Problems: (1) Abdominal pain Status: Acute (2) Chest pain Status: Acute (3) Urinary tract infection Status: Acute (4) Vomiting and diarrhea Status: Acute Brief Hospital Course Allergies Allergies Coded Allergies Type Severity Reaction Last Updated Verified Penicillins Allergy Intermediate 08/04/14 Yes lamotrigine Allergy Intermediate 01/03/19 Yes latex Allergy Intermediate 08/04/14 Yes lisinopril Allergy Intermediate 08/04/14 Yes Vital Signs Vital Signs Date Time Temp Pulse Resp B/P (MAP) Pulse Ox O2 Delivery O2 Flow Rate FiO2 02/12/19 10:47 Room Air 02/12/19 09:11 90 116/67 02/12/19 07:00 98.0 18 96 98.0 Lab Results Laboratory Tests Test 02/11/19 22:40 02/11/19 23:45 02/12/19 03:30 02/12/19 07:25 Urine Color Yellow Urine Clarity Clear Urine pH 6.5 Urine Specific Mcconnell 1.020 Urine Protein Negative mg/dL (NEG-TRACE) Urine Glucose (UA) Negative mg/dL (NEG) Urine Ketones (Stick) Negative mg/dL (NEG) Urine Blood Large (NEG) Urine Nitrite Negative (NEG) Urine Bilirubin Negative (NEG) Urine Urobilinogen Dipstick 1.0 mg/dL (0.2 mg/dL) Urine Leukocyte Esterase Small (NEG) Urine RBC 6-10 /HPF (0-2) Urine WBC 5-10 /HPF (0-4) Urine Squamous Epithelial Cells Mod /LPF Urine Bacteria Few /HPF (0-FEW) Urine Mucus Mod /LPF White Blood Count 11.7 x10^3/uL (4.0-11.0) Red Blood Count 4.64 x10^6/uL (3.50-5.40) Hemoglobin 13.4 g/dL (12.0-15.5) Hematocrit 39.7 % (36.0-47.0) Mean Corpuscular Volume 86 fL (79-100) Mean Corpuscular Hemoglobin 29 pg (25-35) Mean Corpuscular Hemoglobin Concent 34 g/dL (31-37) Red Cell Distribution Width 14.1 % (11.5-14.5) Platelet Count 212 x10^3/uL (140-400) Neutrophils (%) (Auto) 78 % (31-73) Lymphocytes (%) (Auto) 16 % (24-48) Monocytes (%) (Auto) 4 % (0-9) Eosinophils (%) (Auto) 1 % (0-3) Basophils (%) (Auto) 0 % (0-3) Neutrophils # (Auto) 9.1 x10^3/uL (1.8-7.7) Lymphocytes # (Auto) 1.9 x10^3/uL (1.0-4.8) Monocytes # (Auto) 0.5 x10^3/uL (0.0-1.1) Eosinophils # (Auto) 0.1 x10^3/uL (0.0-0.7) Basophils # (Auto) 0.0 x10^3/uL (0.0-0.2) Sodium Level 141 mmol/L (136-145) Potassium Level 3.3 mmol/L (3.5-5.1) Chloride Level 104 mmol/L (98-107) Carbon Dioxide Level 31 mmol/L (21-32) Anion Gap 6 (6-14) Blood Urea Nitrogen 19 mg/dL (7-20) Creatinine 1.0 mg/dL (0.6-1.0) Estimated GFR (Cockcroft-Gault) 70.2 BUN/Creatinine Ratio 19 (6-20) Glucose Level 104 mg/dL (70-99) Calcium Level 8.8 mg/dL (8.5-10.1) Total Bilirubin 0.4 mg/dL (0.2-1.0) Aspartate Amino Transf (AST/SGOT) 12 U/L (15-37) Alanine Aminotransferase (ALT/SGPT) 18 U/L (14-59) Alkaline Phosphatase 127 U/L (46-116) Troponin I Quantitative < 0.017 ng/mL (0.000-0.055) < 0.017 ng/mL (0.000-0.055) < 0.017 ng/mL (0.000-0.055) Total Protein 7.6 g/dL (6.4-8.2) Albumin 3.3 g/dL (3.4-5.0) Albumin/Globulin Ratio 0.8 (1.0-1.7) Lipase 98 U/L (73-393) Laboratory Tests Test 02/11/19 22:40 02/11/19 23:45 02/12/19 03:30 02/12/19 07:25 Urine Color Yellow Urine Clarity Clear Urine pH 6.5 Urine Specific Mcconnell 1.020 Urine Protein Negative mg/dL (NEG-TRACE) Urine Glucose (UA) Negative mg/dL (NEG) Urine Ketones (Stick) Negative mg/dL (NEG) Urine Blood Large (NEG) Urine Nitrite Negative (NEG) Urine Bilirubin Negative (NEG) Urine Urobilinogen Dipstick 1.0 mg/dL (0.2 mg/dL) Urine Leukocyte Esterase Small (NEG) Urine RBC 6-10 /HPF (0-2) Urine WBC 5-10 /HPF (0-4) Urine Squamous Epithelial Cells Mod /LPF Urine Bacteria Few /HPF (0-FEW) Urine Mucus Mod /LPF White Blood Count 11.7 x10^3/uL (4.0-11.0) Red Blood Count 4.64 x10^6/uL (3.50-5.40) Hemoglobin 13.4 g/dL (12.0-15.5) Hematocrit 39.7 % (36.0-47.0) Mean Corpuscular Volume 86 fL (79-100) Mean Corpuscular Hemoglobin 29 pg (25-35) Mean Corpuscular Hemoglobin Concent 34 g/dL (31-37) Red Cell Distribution Width 14.1 % (11.5-14.5) Platelet Count 212 x10^3/uL (140-400) Neutrophils (%) (Auto) 78 % (31-73) Lymphocytes (%) (Auto) 16 % (24-48) Monocytes (%) (Auto) 4 % (0-9) Eosinophils (%) (Auto) 1 % (0-3) Basophils (%) (Auto) 0 % (0-3) Neutrophils # (Auto) 9.1 x10^3/uL (1.8-7.7) Lymphocytes # (Auto) 1.9 x10^3/uL (1.0-4.8) Monocytes # (Auto) 0.5 x10^3/uL (0.0-1.1) Eosinophils # (Auto) 0.1 x10^3/uL (0.0-0.7) Basophils # (Auto) 0.0 x10^3/uL (0.0-0.2) Sodium Level 141 mmol/L (136-145) Potassium Level 3.3 mmol/L (3.5-5.1) Chloride Level 104 mmol/L (98-107) Carbon Dioxide Level 31 mmol/L (21-32) Anion Gap 6 (6-14) Blood Urea Nitrogen 19 mg/dL (7-20) Creatinine 1.0 mg/dL (0.6-1.0) Estimated GFR (Cockcroft-Gault) 70.2 BUN/Creatinine Ratio 19 (6-20) Glucose Level 104 mg/dL (70-99) Calcium Level 8.8 mg/dL (8.5-10.1) Total Bilirubin 0.4 mg/dL (0.2-1.0) Aspartate Amino Transf (AST/SGOT) 12 U/L (15-37) Alanine Aminotransferase (ALT/SGPT) 18 U/L (14-59) Alkaline Phosphatase 127 U/L (46-116) Troponin I Quantitative < 0.017 ng/mL (0.000-0.055) < 0.017 ng/mL (0.000-0.055) < 0.017 ng/mL (0.000-0.055) Total Protein 7.6 g/dL (6.4-8.2) Albumin 3.3 g/dL (3.4-5.0) Albumin/Globulin Ratio 0.8 (1.0-1.7) Lipase 98 U/L (73-393) Brief Hospital Course Ms. Garcia is a 53 old [sex] who presented with [ ] n./v/ abd pain and L:BM x 3 days brought by son, LAbs WBC 11, no fevers, ate breakfast fine no emesis, NOmore lBM thsi AM CT abd neg - i gave a copy - IF does well alter OM, can go home later PM Trop x 3 neg, no CP HAd some transient numbness now gone TRaige note: * PT ARRIVES TO ED VIA POV. PT WHEELED INTO LOBBY BY SON. PT WHEELED TO ROOM BY ED STAFF. PT SAYS SHE STARTED THIS MORNING WITH NAUSEA, VOMITING, 3 LOOSE STOOLS, LT ARM PAIN, AND HEADACHE Discharge Information Condition at Discharge: Improved, Stable Disposition/Orders: D/C to Home Scheduled Amlodipine Besylate (Amlodipine Besylate) 10 Mg Tablet, 10 MG PO DAILY for htn, (Reported) Entered as Reported by: Hayder Gomez on 02/12/19256 Last Action: Continued on 02/12/19808 by DIXIE SPARKS Dextroamphetamine/Amphetamine (Adderall Xr 30 Mg Capsule) 30 Mg Cap.er.24h, 1 CAP PO DAILY, #30 (Reported) Entered as Reported by: Bhupinder Pressley on 08/05/1435 Last Action: Converted on 02/12/19808 by DIXIE SPARKS Lidocain/Me-Salicyl/Caps/Menth (Medi-Patch With Lidocaine) 1 Each Adh..patch, 1 EACH TP DAILY for MSK pain for 14 Days, #14 Prescribed by: DIXIE SPARKS on 02/12/19 1214 Metoprolol Tartrate (Metoprolol Tartrate) 25 Mg Tablet, 25 MG PO BID for heart, (Reported) Entered as Reported by: Hayder Gomez on 02/12/19256 Last Action: Continued on 02/12/19808 by DIXIE SPARKS Ondansetron Hcl (Zofran) 4 Mg Tablet, 1 TAB PO Q6HRS for n.v, #60 Prescribed by: DIXIE SPARKS on 02/12/19 1214 Venlafaxine Hcl (Effexor Xr) 150 Mg Cap.er.24h, 150 MG PO DAILY, (Reported) Entered as Reported by: DIANE CONTRERAS RPH on 01/03/19 1432 Last Action: Converted on 02/12/19808 by DIXIE SPARKS Scheduled PRN Hydrocodone/Acetaminophen (Hydrocodone-Acetamin 5-325 mg) 1 Each Tablet, 5-325 MG PO PRN Q4-6HRS PRN for PAIN, (Reported) Entered as Reported by: Hayder Gomez on 02/12/19256 Last Action: Continued on 02/12/19808 by DIXIE VALENCIA MD Feb 12, 2019 12:15
[2019-02-12 15:32] VITALS: BP 119/71
--- NOTE | 2019-02-12 16:15 | NUR ---
After patient walked with PT, PT informed me that patient has been crying and stating there are problems at home and she is not ready to discharge. This RN entered patients room to find visitors from pentecostal at bedside and patient crying. Patient stated that she lives with her son and his along with some of wifes family members. She stated that she doesn't feel comfortable being there alone with her daughter in law and her family because they do not like her. Her son will be at work this evening and she would rather stay another night and discharge tomorrow. After further discussion, patient stated the she is supposed to move to [place] to live with her sister later this week but feels like her son does not want her in his home. I attempted to call son to get clarity on the situation and was unable to reach him by phone. Pentecostal friend approached nurses station to tell me there is a long history of mental illness and substance abuse in the patient and that the son allowed her to stay with him temporarily but patient keeps extended her stay which has caused some tension at home. After a lengthy conversation, patient understands she is medically stable and is ok to discharge home. Patient stated that she will need refills on her home medication to last her until she is moved to [place] and finds another PCP. Pgd and spoke to primary hospitalist who ok'd to call in refills to patients pharmacy. Family friend agreed to provide her a ride home when paperwork is signed. Patient verbalized understanding.
--- NOTE | 2019-02-12 19:00 | NUR ---
Discharge Note: RALPH ZEE Discharge instructions and discharge home medications reviewed with Patient and a copy given. All questions have been answered and understanding verbalized. The following instructions and handouts were given: HAND WRITTEN PRESCRIPTIONS FOR ZOFRAN AND LIDOCAINE PATCH, MEDICATION LIST/EDUCATION. REFILLS FOR AMLODIPINE 10MG, METOPROLOL AND EFFEXOR WERE CALLED TO [facility]. Discontinued lines and drains: IV DISCONTINUED, DRESSING CLEAN, DRY AND intact. Patient discharged to HOME with FRIEND via WHEELCHAIR
--- NOTE | 2019-02-13 15:00 | EKG ---
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
--- NOTE | 2019-02-14 07:37 | EKG ---
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
== END 2019-02-12 20:04 | disposition home or self-care (01) ==
LOC: ER 22:22 → 2 NORTH 02-12 02:32 → INTOOBSV 02-12 02:32
PROVIDERS: ADMIT Internal Medicine; ATTEND Internal Medicine
DX: R10.9 Unspecified abdominal pain (principal); R07.9 Chest pain, unspecified; N39.0 Urinary tract infection, site not specified; R11.10 Vomiting, unspecified; R19.7 Diarrhea, unspecified; E78.00 Pure hypercholesterolemia, unspecified; I10 Essential (primary) hypertension; M79.7 Fibromyalgia; Z79.899 Other long term (current) drug therapy; M06.9 Rheumatoid arthritis, unspecified
CPT/HCPCS: 36415; 74177; 80053; 81001; 83690; 84484; 85025; 87086; 93005; 96361; 96374; 96375; 96376; 97116; 97162; 99284; G0378; J0696; J2270; J2405; J3490; J7030; Q9967; G0379

== ENCOUNTER 2019-02-21 12:01 | Emergency (ER) | payer OTHER ==
[~2019-02-21] VITALS: Ht 162.6 cm; Wt 111.1 kg
[~2019-02-21 12:01] MED LIST changes: +AMLO10TA8 PO; +HYDR-2759 PO; +LIDO1ADH4 TP; +METO25TA4 PO; +ONDA4TAB7 PO
[2019-02-21 12:40] VITALS: BP 137/77
--- NOTE | 2019-02-21 12:54 | PHYS DOC ---
Past Medical History Past Medical History: Hypertension Additional Past Medical Histor: RHEUMATOID ARTHRITIS, chronic back pain Past Surgical History: Hysterectomy Additional Past Surgical Histo: ABLASION, DVT REMOVED Alcohol Use: Occasionally Drug Use: Marijuana Adult General Chief Complaint Chief Complaint: LOWER BACK PAIN OR INJURY [facility] HPI Patient is a 53 year old female who presents with chronic back pain. She states that today's is really bad and she rates it 10 out of 10 in severity. The patient states that she does not any pain medicine at home. She states she saw her primary care doctor for this and gave her ibuprofen. That primary care doctor was in call back after that ibuprofen was not working. Primary care doctor declined to give the patient any other medicine. Denies any other symptoms. Review of Systems Review of Systems Constitutional: Denies fever or chills [] Eyes: Denies change in visual acuity, redness, or eye pain [] HENT: Denies nasal congestion or sore throat [] Respiratory: Denies cough or shortness of breath [] Cardiovascular: No additional information not addressed in HPI [] GI: Denies abdominal pain, nausea, vomiting, bloody stools or diarrhea [] : Denies dysuria or hematuria [] Musculoskeletal: Reports back pain. Integument: Denies rash or skin lesions [] Neurologic: Denies headache, focal weakness or sensory changes [] Endocrine: Denies polyuria or polydipsia [] Complete systems were reviewed and found to be within normal limits, except as documented in this note. Allergies Allergies Allergies Coded Allergies Type Severity Reaction Last Updated Verified Penicillins Allergy Intermediate 08/04/14 Yes lamotrigine Allergy Intermediate 01/03/19 Yes latex Allergy Intermediate 08/04/14 Yes lisinopril Allergy Intermediate 08/04/14 Yes Physical Exam Physical Exam Constitutional: Well developed, well nourished, no acute distress, non-toxic appearance. [] HENT: Normocephalic, atraumatic, bilateral external ears normal, oropharynx moist, no oral exudates, nose normal. [] Eyes: PERRLA, EOMI, conjunctiva normal, no discharge. [] Neck: Normal range of motion, no tenderness, supple, no stridor. [] Cardiovascular:Heart rate regular rhythm, no murmur [] Lungs & Thorax: Bilateral breath sounds clear to auscultation [] Skin: Warm, dry, no erythema, no rash. [] Back: Lumbar back tenderness. Neurologic: Alert and oriented X 3, normal motor function, normal sensory function, no focal deficits noted. [] Psychologic: Affect normal, judgement normal, mood normal. [] Current Patient Data Vital Signs Vital Signs Date Time Temp Pulse Resp B/P (MAP) Pulse Ox O2 Delivery O2 Flow Rate FiO2 02/21/19 12:40 98.1 87 20 137/77 (97) 98 Room Air 98.1 EKG EKG [] Radiology/Procedures Radiology/Procedures [] Course & Med Decision Making Course & Med Decision Making Pertinent Labs and Imaging studies reviewed. (See chart for details) Will give 1 lortab in the ER. Discussed with the patient of this is not an appropriate ER visit. Discussed the patient to the ER does not treat chronic pain. Since patient is followed for primary care doctor and work out a plan of care. Dragon Disclaimer Dragon Disclaimer This electronic medical record was generated, in whole or in part, using a voice recognition dictation system. Departure Departure Impression: Primary Impression: Chronic back pain Disposition: HOME, SELF-CARE Condition: STABLE Referrals: NO PCP (PCP) Patient Instructions: Chronic Back Pain Additional Instructions: Thank you for visiting [facility]. We appreciate you trusting us with your care. If any additional problems come up don't hesitate to return to visit us. Please follow up with your primary care provider so they can plan additional care if needed and know about the problem that you had. If symptoms worsen come back to the Emergency Department. Any concerning symptoms that start such as chest pain, shortness of air, weakness or numbness on one side of the body, running high fevers or any other concerning symptoms return to the ER. Problem Qualifiers Primary Impression: Chronic back pain Back pain location: low back pain Back pain laterality: midline Sciatica presence: without sciatica Qualified Codes: M54.5 - Low back pain; G89.29 - Other chronic pain SONG PACHECO APRN Feb 21, 2019 12:54
[2019-02-21] MEDS: HYDROcodone/APAP 5/325MG 1 TAB TABLET PO STA (12:57)
== END 2019-02-21 13:19 | disposition home or self-care (01) ==
LOC: ER 12:01
DX: G89.29 Other chronic pain (principal); M54.5 Low back pain; I10 Essential (primary) hypertension; M06.9 Rheumatoid arthritis, unspecified; Z90.710 Acquired absence of both cervix and uterus; Z86.718 Personal history of other venous thrombosis and embolism; Z88.0 Allergy status to penicillin; Z91.040 Latex allergy status; Z88.8 Allergy status to other drugs, medicaments and biological substances
CPT/HCPCS: 99282

== ENCOUNTER 2019-05-06 09:26 | Emergency (ER) | payer OTHER ==
[~2019-05-06] VITALS: Ht 162.6 cm; Wt 113.6 kg
[2019-05-06] MEDS ORDERED: IV NORMAL SALINE 1000ML BAG 1,000 ML IV SCH (09:29)
--- NOTE | 2019-05-06 09:54 | RAD ---
PORTABLE CHEST 1V History: Shortness of breath Comparison: January 03, 2019 Findings: No consolidation or pleural effusion. Normal heart size. No pneumothorax. Impression: 1. No acute cardiopulmonary process. Electronically signed by: Clark Kapoor DO (05/06/2019 9:52 AM) [id number]
[2019-05-06] MEDS ORDERED: IPRATRPIUM/ALBUTEROL 0.5/2.5MG 3 ML NEBU. NEB ONE (10:00)
[2019-05-06] MEDS ORDERED: methylPREDNISolone SOD SUCC PF 125 MG/2 ML VIAL. IV ONE (10:00)
--- NOTE | 2019-05-06 10:07 | PHYS DOC ---
Past Medical History Past Medical History: Hypertension, Other Additional Past Medical Histor: RHEUMATOID ARTHRITIS,chronic back/KNEE pain Past Surgical History: Hysterectomy, Other Additional Past Surgical Histo: ABLATION, DVT REMOVED Smoking Status: Current Every Day Smoker Additional Information: 0.5 PPD Alcohol Use: Rarely Drug Use: Marijuana Adult General Chief Complaint Chief Complaint: SHORTNESS OF BREATH HPI HPI Patient is a 54 year old female with history of hypertension, current smoker, who presents to the ED today with multiple complaints. Patient is complaining of shortness of breath on exertion intermittently for 4 days. Patient denies any chest pain. Reports a slight cough. She is also complaining of itching and not sleeping well after spending a couple nights at a relatives house that is infested with bed bugs. Patient reports not being able to sleep well. Review of Systems Review of Systems Constitutional: Denies fever or chills [] Eyes: Denies change in visual acuity, redness, or eye pain [] HENT: Denies nasal congestion or sore throat [] Respiratory: Reports cough or shortness of breath Cardiovascular: No additional information not addressed in HPI [] GI: Denies abdominal pain, nausea, vomiting, bloody stools or diarrhea [] : Denies dysuria or hematuria [] Musculoskeletal: Denies back pain or joint pain [] Integument: Reports pruritic rash Neurologic: Denies headache, focal weakness or sensory changes [] All other systems were reviewed and found to be within normal limits, except as documented in this note. Current Medications Current Medications Current Medications Medications (Trade) Dose Ordered Sig/Abner Start Time Stop Time Status Last Admin Dose Admin Albuterol/ Ipratropium (Duoneb) 3 ml 1X ONCE 05/06/19 10:00 05/06/19 10:01 DC 05/06/19 10:32 3 ML Methylprednisolone Sodium Succinate (SOLU-Medrol 125MG VIAL) 125 mg 1X ONCE 05/06/19 10:00 05/06/19 10:01 DC 05/06/19 10:23 125 MG Sodium Chloride 1,000 ml @ 1,000 mls/hr Q1H 05/06/19 09:29 05/06/19 10:28 DC 05/06/19 10:23 1,000 MLS/HR Allergies Allergies Allergies Coded Allergies Type Severity Reaction Last Updated Verified Penicillins Allergy Intermediate 08/04/14 Yes lamotrigine Allergy Intermediate 01/03/19 Yes latex Allergy Intermediate 08/04/14 Yes lisinopril Allergy Intermediate 08/04/14 Yes Physical Exam Physical Exam Constitutional: Well developed, well nourished, no acute distress, non-toxic appearance. [] HENT: Normocephalic, atraumatic, bilateral external ears normal, oropharynx moist, no oral exudates, nose normal. [] Eyes: PERRLA, EOMI, conjunctiva normal, no discharge. [] Neck: Normal range of motion, no tenderness, supple, no stridor. [] Cardiovascular:Heart rate regular rhythm, no murmur [] Lungs & Thorax: Bilateral breath sounds clear to auscultation [] Abdomen: Bowel sounds normal, soft, no tenderness, no masses, no pulsatile masses. [] Skin: Warm, dry, no erythema, no rash. [] Back: No tenderness, no CVA tenderness. [] Extremities: No tenderness, no cyanosis, no clubbing, ROM intact, no edema. [] Neurologic: Alert and oriented X 3, normal motor function, normal sensory function, no focal deficits noted. Cranial nerves II through XII intact Psychologic: Affect normal, judgement normal, mood normal. [] Current Patient Data Vital Signs Vital Signs Date Time Temp Pulse Resp B/P (MAP) Pulse Ox O2 Delivery O2 Flow Rate FiO2 05/06/19 10:33 95 Room Air 05/06/19 09:27 98.2 91 20 146/90 (108) 98.2 Lab Values Laboratory Tests Test 05/06/19 10:20 05/06/19 10:40 Influenza Type A Antigen Negative (NEGATIVE) Influenza Type B Antigen Negative (NEGATIVE) White Blood Count 8.0 x10^3/uL (4.0-11.0) Red Blood Count 3.98 x10^6/uL (3.50-5.40) Hemoglobin 11.3 g/dL (12.0-15.5) L Hematocrit 34.2 % (36.0-47.0) L Mean Corpuscular Volume 86 fL (79-100) Mean Corpuscular Hemoglobin 28 pg (25-35) Mean Corpuscular Hemoglobin Concent 33 g/dL (31-37) Red Cell Distribution Width 15.0 % (11.5-14.5) H Platelet Count 187 x10^3/uL (140-400) Neutrophils (%) (Auto) 56 % (31-73) Lymphocytes (%) (Auto) 34 % (24-48) Monocytes (%) (Auto) 8 % (0-9) Eosinophils (%) (Auto) 2 % (0-3) Basophils (%) (Auto) 0 % (0-3) Neutrophils # (Auto) 4.5 x10^3/uL (1.8-7.7) Lymphocytes # (Auto) 2.7 x10^3/uL (1.0-4.8) Monocytes # (Auto) 0.7 x10^3/uL (0.0-1.1) Eosinophils # (Auto) 0.1 x10^3/uL (0.0-0.7) Basophils # (Auto) 0.0 x10^3/uL (0.0-0.2) Prothrombin Time 12.7 SEC (11.7-14.0) Prothrombin Time INR 1.0 (0.8-1.1) Activated Partial Thromboplast Time 27 SEC (24-38) Sodium Level 145 mmol/L (136-145) Potassium Level 3.4 mmol/L (3.5-5.1) L Chloride Level 108 mmol/L (98-107) H Carbon Dioxide Level 29 mmol/L (21-32) Anion Gap 8 (6-14) Blood Urea Nitrogen 15 mg/dL (7-20) Creatinine 1.0 mg/dL (0.6-1.0) Estimated GFR (Cockcroft-Gault) 69.9 BUN/Creatinine Ratio 15 (6-20) Glucose Level 99 mg/dL (70-99) Calcium Level 8.4 mg/dL (8.5-10.1) L Magnesium Level 1.6 mg/dL (1.8-2.4) L Total Bilirubin 0.1 mg/dL (0.2-1.0) L Aspartate Amino Transferase (AST) 10 U/L (15-37) L Alanine Aminotransferase (ALT) 21 U/L (14-59) Alkaline Phosphatase 108 U/L (46-116) Creatine Kinase 79 U/L (26-192) Creatine Kinase MB (Mass) 0.8 ng/mL (0.0-3.6) Creatine Kinase MB Relative Index 1.0 % (0-4) Troponin I Quantitative < 0.017 ng/mL (0.000-0.055) OY-Muu-G-Type Natriuretic Peptide 269 pg/mL (0-124) H Total Protein 5.3 g/dL (6.4-8.2) L Albumin 2.7 g/dL (3.4-5.0) L Albumin/Globulin Ratio 1.0 (1.0-1.7) Thyroid Stimulating Hormone (TSH) 1.583 uIU/mL (0.358-3.74) Laboratory Tests 05/06/19 10:40 Laboratory Tests 05/06/19 10:40 EKG EKG [address] Mckenna sinus rhythm HR 88 no STEMI Radiology/Procedures Radiology/Procedures []PROCEDURE: PORTABLE CHEST 1V PORTABLE CHEST 1V History: Shortness of breath Comparison: January 03, 2019 Findings: No consolidation or pleural effusion. Normal heart size. No pneumothorax. Impression: 1. No acute cardiopulmonary process. Electronically signed by: Maricarmen Orantes DO (05/06/2019 9:52 AM) [id number] DICTATED and SIGNED BY: MARICARMEN ORANTES DO DATE: 05/06/19 0952 Course & Med Decision Making Course & Med Decision Making Pertinent Labs and Imaging studies reviewed. (See chart for details) This is a 54-year-old female patient presenting for cough or shortness of breath for 4 days. Also reporting a pruritic rash after spending the night at her family members with bedbugs. Patient was advised to consider smoking cessation, chest x-ray interpreted by radiologist is negative for any acute findings. Labs are negative for any acute findings, slightly low magnesium at 1.6, patient was given magnesium replacement in the ED. Negative influenza A or B. Patient was discharged to home. f/u with PCP in one week. Recommended she finds a place with no bedbugs to sleep. Dragon Disclaimer Dragon Disclaimer This electronic medical record was generated, in whole or in part, using a voice recognition dictation system. Departure Departure Impression: Primary Impression: Smoking addiction Additional Impressions: Acute bronchitis Hypomagnesemia Bed bug bite Disposition: HOME, SELF-CARE Condition: STABLE Referrals: NO PCP (PCP) follow up with your doctor in 1-2 weeks Patient Instructions: Acute Bronchitis, Buxx-bf-[id number], Bedbugs, Smoking Cessation, Tips For Success Additional Instructions: You were elevated in the emergency room, your workup was negative for any acute findings. We recommend you find a place to sleep that does not have bedbugs. We recommend you clean everything including yourself. Use medicines ordered as prescribed. Scripts Cetirizine Hcl (ZYRTEC) 10 Mg Tablet 1 TAB PO DAILY, #30 TAB 2 Refills Prov: ELOISA MONROY APRN 05/06/19 Benzonatate (TESSALON PERLE) 100 Mg Capsule 1 CAP PO TID, #30 CAP Prov: ELOISA MONROY APRN 05/06/19 Albuterol Sulfate (Proair Hfa) 8.5 Gm Hfa.aer.ad 2 PUFF IH PRN Q4-6HRS PRN for wheezing for 21 Days, #1 INHALER 0 Refills Prov: ELOISA MONROY APRN 05/06/19 Prednisone (PREDNISONE) 50 Mg Tablet 1 TAB PO DAILY, #5 TAB Prov: ELOISA MONROY APRN 05/06/19 Problem Qualifiers Additional Impressions: Acute bronchitis Bronchitis organism: unspecified organism Qualified Codes: J20.9 - Acute bronchitis, unspecified Bed bug bite Encounter type: initial encounter Qualified Codes: W57.XXXA - Bitten or stung by nonvenomous insect and other nonvenomous arthropods, initial encounter ELOISA MONROY APRN May 06, 2019 10:07
[2019-05-06 10:50] LABS: BASO % 0 % (0-3); EOS # 0.1 x10^3/uL (0.0-0.7); EOS % 2 % (0-3); HEMATOCRIT 34.2 % (36.0-47.0); HEMOGLOBIN 11.3 g/dL (12.0-15.5); LYMPH # 2.7 x10^3/uL (1.0-4.8); LYMPH % 34 % (24-48); MEAN CORPUSCULAR HEMOGLOBIN 28 pg (25-35); MEAN CORPUSCULAR HGB CONC 33 g/dL (31-37); MEAN CORPUSCULAR VOLUME 86 fL (79-100); MONO # 0.7 x10^3/uL (0.0-1.1); MONO % 8 % (0-9); NEUT # 4.5 x10^3/uL (1.8-7.7); NEUT % 56 % (31-73); PLATELET COUNT 187 x10^3/uL (140-400); RED BLOOD COUNT 3.98 x10^6/uL (3.50-5.40)
[2019-05-06 11:01] LABS: PROTHROMBIN TIME PATIENT 12.7 SEC (11.7-14.0)
[2019-05-06 11:04] LABS: INFLUENZA A PATIENT NEGATIVE (NEGATIVE); INFLUENZA B PATIENT NEGATIVE (NEGATIVE)
[2019-05-06 11:17] LABS: CALCIUM 8.4 mg/dL (8.5-10.1); GFR 69.9; POTASSIUM 3.4 mmol/L (3.5-5.1)
[2019-05-06 11:22] LABS: ALBUMIN 2.7 g/dL (3.4-5.0); MAGNESIUM 1.6 mg/dL (1.8-2.4); TOTAL BILIRUBIN 0.1 mg/dL (0.2-1.0); TOTAL PROTEIN 5.3 g/dL (6.4-8.2)
--- NOTE | 2019-05-06 11:54 | EKG ---
[facility] [address] [place] [address] Test Date: 2019-05-06 Test Time: 10:05:51 Pat Name: RALPH ZEE Department: Room: Gender: F Ob/Gyn Doctor: : 1965 Requested By: JULIANA TAMAYO Order Number: [id number] Reading MD: Measurements Intervals [place] Rate: 88 P: 45 VT: 120 QRS: 13 QRSD: 98 T: 38 QT: 388 QTc: 473 Interpretive Statements SINUS RHYTHM NORMAL ECG RI6.01 No previous ECG available for comparison
[2019-05-06] MEDS ORDERED: BENZ100C PO (12:22)
[2019-05-06] MEDS ORDERED: ALBU2.5V8 IH (12:22)
[2019-05-06] MEDS ORDERED: PRED50TA PO (12:22)
[2019-05-06] MEDS ORDERED: CETI10TA24 PO (12:22)
[2019-05-06] MEDS ORDERED: MAGNESIUM OXIDE 400 MG TABLET PO STA (12:24)
[2019-05-06 12:43] VITALS: BP 157/87
== END 2019-05-06 13:15 | disposition home or self-care (01) ==
LOC: ER 09:26
DX: J20.9 Acute bronchitis, unspecified (principal); E83.42 Hypomagnesemia; F17.200 Nicotine dependence, unspecified, uncomplicated; R21 Rash and other nonspecific skin eruption; L29.8 Other pruritus; I10 Essential (primary) hypertension; G89.29 Other chronic pain; M06.9 Rheumatoid arthritis, unspecified; Z88.0 Allergy status to penicillin; Z91.040 Latex allergy status; Z88.8 Allergy status to other drugs, medicaments and biological substances
CPT/HCPCS: 36415; 71045; 80053; 82553; 83735; 83880; 84443; 84484; 85025; 85610; 85730; 87804; 93005; 94640; 96374; 99285; J2930; J7030; J7620

== ENCOUNTER 2021-07-18 13:38 | Inpatient (IN) | payer OTHER ==
[~2021-07-18] VITALS: Ht 162.6 cm; Wt 123.4 kg
[~2021-07-18 13:38] MED LIST changes: +ALBU2.5V8 IH; +AMLO-187 PO; -AMLO10TA8 PO; +BENZ100C PO; +CETI10TA74 PO; -DULO60CA6 PO; +DULO60CA7 PO; +PRED50TA PO; -VENL150C PO; +VENL150C3 PO
--- NOTE | 2021-07-18 14:37 | RAD ---
EXAMINATION: CT HEAD/BRAIN WO CLINICAL HISTORY: Dizziness. TECHNIQUE: Serial axial images without IV contrast were obtained from the vertex to the foramen magnu m. CT Dose Reduction Employed: One or more of the following individualized dose reduction techniques wer e utilized for this examination: 1. Automated exposure control 2. Adjustment of the mA and/or kV ac cording to patient size 3. Use of iterative reconstruction technique. COMPARISON: 01/03/2019 FINDINGS: Acute Change: No evidence of an acute infarct or other acute parenchymal process. Hemorrhage: No evidence of acute intracranial hemorrhage. Mass Lesion/Mass Effect: No evidence of intracranial mass or extraaxial fluid collection. No signific ant mass effect. Chronic Change: Scattered patchy foci of hypoattenuation in the supratentorial white matter, nonspeci fic but likely represents mild microvascular ischemia. Atherosclerotic calcification of the intracran ial portion of the bilateral internal carotid arteries. Parenchyma: Mild generalized volume loss. Ventricles: Ventricles within normal limits for age. Paranasal Sinuses and Skull Base: Visualized paranasal sinuses clear. Visualized skull base and soft tissues unremarkable. IMPRESSION: No evidence of acute intracranial abnormality. Electronically signed by: Ziyad Zarate DO (07/18/2021 2:35 PM) [facility]
[2021-07-18 14:40] LABS: BACTERIA,URINE MANY /HPF (0-FEW)
[2021-07-18 14:43] LABS: BARBITURATES NEG (NEG); BENZODIAZEPINES POS (NEG); CANNABINOIDS POS (NEG); COCAINE NEG (NEG); METHADONE NEG (NEG); OPIATES NEG (NEG); PHENCYCLIDINE NEG (NEG)
[2021-07-18 14:58] LABS: AMPHETAMINE/METHAMPHETAMINE NEG (NEG)
[2021-07-18 15:06] LABS: BASO # 0.1 x10^3/uL (0.0-0.2); BASO % 1 % (0-3); EOS # 0.1 x10^3/uL (0.0-0.7); EOS % 1 % (0-3); HEMATOCRIT 39.1 % (36.0-47.0); HEMOGLOBIN 13.4 g/dL (12.0-15.5); LYMPH # 2.5 x10^3/uL (1.0-4.8); LYMPH % 24 % (24-48); MEAN CORPUSCULAR HEMOGLOBIN 30 pg (25-35); MEAN CORPUSCULAR HGB CONC 34 g/dL (31-37); MEAN CORPUSCULAR VOLUME 88 fL (79-100); MONO # 0.5 x10^3/uL (0.0-1.1); MONO % 5 % (0-9); NEUT # 7.4 x10^3/uL (1.8-7.7); NEUT % 70 % (31-73); PLATELET COUNT 219 x10^3/uL (140-400); RED BLOOD COUNT 4.45 x10^6/uL (3.50-5.40); RED CELL DISTRIBUTION WIDTH 13.7 % (11.5-14.5); WHITE BLOOD COUNT 10.6 x10^3/uL (4.0-11.0)
--- NOTE | 2021-07-18 15:08 | RAD ---
EXAM: AP View of the chest DATE: 07/18/2021 2:32 PM INDICATION: dizziness COMPARISON: 05/06/2019 01/03/2019 FINDINGS: The heart is not enlarged. Mediastinal and hilar contours are normal. Calcified left hilar lymph nodes. Accounting for prominent overlying soft tissues, no focal parenchymal airspace opacity. No pleural effusion or pneumothorax. IMPRESSION: 1. No radiographic evidence for acute cardiopulmonary process. Electronically signed by: Larry Porter MD (07/18/2021 3:05 PM) [facility]
[2021-07-18] MEDS ORDERED: PROCHLORPERAZINE 10 MG/2 ML VIAL. IV ONE (15:15)
[2021-07-18] MEDS ORDERED: LABETALOL 20 MG/4 ML DISP.SYRIN. IVP ONE (15:15)
[2021-07-18] MEDS ORDERED: diphenhydrAMINE 50 MG/ML VIAL IVP ONE ×2 (15:15→15:30)
[2021-07-18 15:20] LABS: CALCIUM 8.7 mg/dL (8.5-10.1); CREATININE 1.1 mg/dL (0.6-1.0); GFR 62.2; POTASSIUM 3.4 mmol/L (3.5-5.1)
--- NOTE | 2021-07-18 15:21 | PHYS DOC ---
Past Medical History Past Medical History: Hypertension, Other Additional Past Medical Histor: RHEUMATOID ARTHRITIS,chronic back/KNEE pain, cataracts Past Surgical History: Cholecystectomy, Hysterectomy, Tonsillectomy, Other Additional Past Surgical Histo: ABLATION, DVT REMOVED Smoking Status: Current Every Day Smoker Additional Information: 5 cigarettes daily Alcohol Use: None Drug Use: Marijuana General Adult EDM: Chief Complaint: DIZZY/LIGHT HEADED HPI: HPI: Patient is a 56 year old female who presents with last 2 days she has had dizziness, blurred vision, headache to the crown of her head that she rates at a 6 out of 10 at this time. She states she has been out of her metoprolol for the last 2 months. She is hypertensive. She is also feeling palpitations. Heart rate was in the low 100s upon arrival. Denies chest pain, shortness of breath, abdominal pain, nausea, vomiting, diarrhea, syncope, fever, neck pain or back pain, urinary symptoms. She has a history of hypertension, TIA, smoking and high cholesterol. Review of Systems: Review of Systems: Constitutional: Denies fever or chills. [] Eyes: Denies change in visual acuity. + Blurred vision [] HENT: Denies nasal congestion or sore throat. [] Respiratory: Denies cough or shortness of breath. [] Cardiovascular: Denies chest pain or edema. [] GI: Denies abdominal pain, nausea, vomiting, bloody stools or diarrhea. [] : Denies dysuria. [] Musculoskeletal: Denies back pain or joint pain. [] Integument: Denies rash. [] Neurologic: +headache, denies focal weakness or sensory changes. + Dizziness [] Endocrine: Denies polyuria or polydipsia. [] Lymphatic: Denies swollen glands. [] Psychiatric: Denies depression or anxiety. [] Heart Score: C/O Chest Pain: No HEART Score for Chest Pain: HEART Score for Chest Pain Response (Comments) Value History Slighlty/Non-Suspicious 0 ECG Nonspecific Repolarizatio 1 Age >45 - < 65 1 Risk Factors 1 or 2 Risk Factors 1 Troponin < Normal Limit 0 Total 3 Risk Factors: Risk Factors: DM, Current or recent (<one month) smoker, HTN, HLP, family history of CAD, obesity. Risk Scores: Score 0 - 3: 2.5% MACE over next 6 weeks - Discharge Home Score 4 - 6: 20.3% MACE over next 6 weeks - Admit for Clinical Observation Score 7 - 10: 72.7% MACE over next 6 weeks - Early Invasive Strategies Allergies: Allergies: Allergies Coded Allergies Type Severity Reaction Last Updated Verified lamotrigine Allergy Severe FACIAL SWELLING, SOB 07/18/21 Yes lisinopril Allergy Severe SOB, RASH 07/18/21 Yes Penicillins Allergy Intermediate RASH, N/V 07/18/21 Yes latex Allergy Intermediate RASH, ITCHING 07/18/21 Yes Physical Exam: PE: Constitutional: Well developed, well nourished, no acute distress, non-toxic appearance. [] HENT: Normocephalic, atraumatic, bilateral external ears normal, oropharynx moist, no oral exudates, nose normal. [] Eyes: PERRLA, EOMI, conjunctiva normal, no discharge. [] Neck: Normal range of motion, no tenderness, supple, no stridor. [] Cardiovascular:Heart rate regular tachycardia rhythm, no murmur [] Lungs & Thorax: Bilateral breath sounds clear to auscultation [] Abdomen: Bowel sounds normal, soft, no tenderness, no masses, no pulsatile masses. [] Skin: Warm, dry, no erythema, no rash. [] Back: No tenderness, no CVA tenderness. [] Extremities: No tenderness, no cyanosis, no clubbing, ROM intact, 1+ bilateral lower edema. [] Neurologic: Alert and oriented X 3, normal motor function, normal sensory function, no focal deficits noted. [] Psychologic: Affect normal, judgement normal, mood normal. [] Current Patient Data: Labs: Laboratory Tests Test 07/18/21 13:53 Urine Collection Type Unknown Urine Color (Auto) Light yellow Urine Turbidity Hazy Urine pH (Auto) 6.0 (<5.0-8.0) Urine Specific [place] 1.006 (1.000-1.030) Urine Protein (Auto) Negative mg/dL (Negative) Urine Glucose (Auto)(UA) Negative mg/dL (Negative) Urine Ketones (Auto) Negative mg/dL (Negative) Urine Blood (Auto) Moderate (Negative) Urine Nitrite Negative (Negative) Urine Bilirubin (Auto) Negative (Negative) Urine Urobilinogen (Auto) Normal mg/dL (Normal) Urine Leukocyte Esterase (Auto) Moderate (Negative) Urine RBC 6-10 /HPF (0-2) Urine WBC 5-10 /HPF (0-4) Urine Squamous Epithelial Cells Many /LPF Urine Bacteria Many /HPF (0-FEW) Urine Opiates Screen Neg (NEG) Urine Methadone Screen Neg (NEG) Urine Barbiturates Neg (NEG) Urine Phencyclidine Screen Neg (NEG) Urine Amphetamine/Methamphetamine Neg (NEG) Urine Benzodiazepines Screen Pos (NEG) Urine Cocaine Screen Neg (NEG) Urine Cannabinoids Screen Pos (NEG) Urine Ethyl Alcohol Neg (NEG) Vital Signs: Vital Signs Date Time Temp Pulse Resp B/P (MAP) Pulse Ox O2 Delivery O2 Flow Rate FiO2 07/18/21 14:59 91 16 187/111 (136) 98 07/18/21 13:58 98.5 Room Air 98.5 EKG: EK and read by Dr. Weber is a sinus rhythm with a prolonged QT but no STEMI Radiology/Procedures: Radiology/Procedures: [] Impression: [facility] [address] [place], [place] [id number] IMAGING REPORT Signed PATIENT: RALPH ZEE ACCOUNT: [id number] : 1965 LOCATION: ER AGE: 56 SEX: F EXAM STATUS: REG ER ORD. PHYSICIAN: LAZARO HENNING APRN REASON: dizziness PROCEDURE: CT HEAD WO CONTRAST EXAMINATION: CT HEAD/BRAIN WO CLINICAL HISTORY: Dizziness. TECHNIQUE: Serial axial images without IV contrast were obtained from the vertex to the foramen magnum. CT Dose Reduction Employed: One or more of the following individualized dose reduction techniques were utilized for this examination: 1. Automated exposure control 2. Adjustment of the mA and/or kV according to patient size 3. Use of iterative reconstruction technique. COMPARISON: 01/03/2019 FINDINGS: Acute Change: No evidence of an acute infarct or other acute parenchymal process. Hemorrhage: No evidence of acute intracranial hemorrhage. Mass Lesion/Mass Effect: No evidence of intracranial mass or extraaxial fluid collection. No significant mass effect. Chronic Change: Scattered patchy foci of hypoattenuation in the supratentorial white matter, nonspecific but likely represents mild microvascular ischemia. Atherosclerotic calcification of the intracranial portion of the bilateral internal carotid arteries. Parenchyma: Mild generalized volume loss. Ventricles: Ventricles within normal limits for age. Paranasal Sinuses and Skull Base: Visualized paranasal sinuses clear. Visualized skull base and soft tissues unremarkable. IMPRESSION: No evidence of acute intracranial abnormality. Electronically signed by: Ziyad Sandhu DO (07/18/2021 2:35 PM) [facility] DICTATED and SIGNED BY: ZIYAD SANDHU DO DATE: 07/18/21 1432 [facility] [address] [place] [address] IMAGING REPORT Signed PATIENT: RALPH ZEE ACCOUNT: [id number] : 1965 LOCATION: ER AGE: 56 SEX: F EXAM STATUS: REG ER ORD. PHYSICIAN: LAZARO HENNING APRN REASON: dizziness PROCEDURE: PORTABLE CHEST 1V EXAM: AP View of the chest DATE: 07/18/2021 2:32 PM INDICATION: dizziness COMPARISON: 05/06/2019 01/03/2019 FINDINGS: The heart is not enlarged. Mediastinal and hilar contours are normal. Calcified left hilar lymph nodes. Accounting for prominent overlying soft tissues, no focal parenchymal airspace opacity. No pleural effusion or pneumothorax. IMPRESSION: 1. No radiographic evidence for acute cardiopulmonary process. Electronically signed by: Larry Garrett MD (07/18/2021 3:05 PM) [facility] DICTATED and SIGNED BY: LARRY GARRETT MD DATE: 07/18/21 1504 Course & Med Decision Making: Course & Med Decision Making Pertinent Labs and Imaging studies reviewed. (See chart for details) See HPI. Alert and oriented x4. Ambulatory with a steady gait. Speaks in full clear sentences. PERRLA. No nystagmus. Neurologically intact. Sensations intact. Lungs are clear to auscultation all lobes. CT head and chest x-ray showed no acute findings. Patient is given labetalol 10 mg IV. Her urine is positive for benzo and marijuana. Blood work is unremarkable. Patient did have a reaction to the Compazine causing her to feel like she is crawling out of her skin. She is given Benadryl. She is also given Toradol for headache. She states she still having headache. She was given labetalol to help her blood pressure come down. She states that her headache feels slightly better. CT scan and chest x-ray showed no acute findings. Patient is admitted to hospitalist for hypertensive urgency. [] Dragon Disclaimer: Dragon Disclaimer: This electronic medical record was generated, in whole or in part, using a voice recognition dictation system. NIHSS Stroke Scale NIH Stroke Scale: NIH Stroke Scale Response (Comments) Value Level of Consciousness: 0 Alert/Responsive 0 LOC Questions: 0 Answers both correctly 0 LOC Commands: 0 Performs both tasks 0 Best Gaze: 0 Normal 0 Visual: 0 No visual loss 0 Facial Palsy: 0 Normal, symmetrical 0 Motor - Left Arm 0 No drift 0 Motor - Right Arm 0 No drift 0 Motor - Left Leg 0 No drift 0 Motor: Right Leg 0 No drift 0 Limb Ataxia: 0 Absent 0 Sensory: 0 No loss 0 Best Language: 0 Normal 0 Dysathria: 0 Normal 0 Extinction and Inattention: 0 Normal 0 Total 0 Departure Departure Impression: Primary Impression: Hypertensive urgency Disposition: ADMITTED INPATIENT Admitting Physician: RL Condition: STABLE Referrals: NO PCP (PCP) LAZARO HENNING APRN July 18, 2021 15:21
[2021-07-18 15:26] LABS: ALBUMIN 3.1 g/dL (3.4-5.0); ALBUMIN/GLOBULIN RATIO 0.8 (1.0-1.7); MAGNESIUM 1.9 mg/dL (1.8-2.4); TOTAL BILIRUBIN 0.4 mg/dL (0.2-1.0); TOTAL PROTEIN 7.2 g/dL (6.4-8.2)
[2021-07-18] MEDS ORDERED: KETOROLAC 30 MG/ML VIAL. IVP ONE (16:30)
--- NOTE | 2021-07-18 16:35 | EKG ---
[facility] [address] [place] [address] Test Date: 2021-07-18 Test Time: 14:20:23 Pat Name: RALPH ZEE Department: Room: Gender: F Navigation Teacher: : 1965 Requested By: LAZARO HENNING Order Number: [id number] Reading MD: Bijan Sparks Measurements Intervals [place] Rate: 91 P: 38 [place]: 134 QRS: -4 QRSD: 98 T: 28 QT: 394 QTc: 486 Interpretive Statements SINUS RHYTHM LEFT ATRIAL ABNORMALITY LEFTWARD AXIS PROLONGED QT Electronically Signed On 07-19-2021 14:46:26 CDT by Bijan Sparks
[2021-07-18] MEDS ORDERED: ACETAMINOPHEN 325 MG TABLET. PO PRN (17:00)
--- NOTE | 2021-07-18 17:03 | PDOC1 ---
History and Physical Date of Admission Date of Admission DATE: 07/18/21 TIME: 16:54 Identification/Chief Complaint Chief Complaint Headache Source Source: Patient History of Present Illness History of Present Illness Ms Garcia is a 56yo female with PMHx HTN, TIA, depression with anxiety who comes to the ED (brought by her nephew, Estuardo Morrell Jr) with several c omplaints, the worst of which is a headache that is diffuse with associated auditory sensitivity. She complains of being able to hear her heartbeat in her ears. She also notes intermittent vision blurriness these both been progressively worse over the last 2 days. She is also noted dizziness over the last week. She notes she has not filled her metoprolol succinate 50 mg twice daily as prescribed by her primary care physician for several months due to difficulty getting to appointments. She tells ED staff and myself that she thinks she is supposed to be maintained on this because she has a history of cardiac ablation at [facility] but she cannot remember when this happened. She has no chest pain has a little bit of shortness of breath has occasional nausea no constipation or diarrhea no urinary complaints no numbness or tingling no focal weakness. She has no recent travel or sick contacts. She is fully vaccinated as COVID-19 She still smokes at least 5 cigarettes every day blood pressure in the ED is 187/111 after IV labetalol, 201/102 Filled venlafaxine 150 mg diazepam 10 mg and Banophen as well as amphetamine 15 mg in the last 3 months and was on Toprol succinate 50 mg twice daily back in February. She is concerned about getting back on her venlafaxine. I advised her this is a medication that increases blood pressure should seek an alternative antidepressant and she is amenable to start on Cymbalta and trazodone. Labs WBC 10.6, Hb 13.4, platelets 219, NA 144, K3.4, BUN 10, CR 1.1 LFTs within normal laboratory limits with exception of albumin 3.1, NT proBNP was 435 high- sensitivity troponin initially was 14 urine drug screen positive for benzodiazepines and cannabinoids, urinalysis with moderate leuk esterase but many squamous epithelial cells likely contaminant CT head with no acute intracranial abnormalities. Chest radiograph on my interpretation no acute abnormalities possible borderline cardiomegaly. EKG on my interpretation sinus rhythm with leftward axis, increased P wave amplitude indicates left atrial enlargement, no T WI, QTC minimally prolonged at 486. Due to uncontrolled hypertension symptoms admitted for further care Past Medical History Cardiovascular: HTN CENTRAL NERVOUS SYSTEM: TIA Psych: Anxiety, Depression Rheumatologic: Fibromyalgia ENT: Other (Glaucoma) Past Surgical History Past Surgical History 1992-hysterectomy Cholecystectomy Tonsillectomy Other Additional Past Surgical History ABLATION, DVT REMOVED Past Surgical History: Cholecystectomy, Tonsillectomy, Hysterectomy Family History Family History: Heart Disease, High Cholestrol, Hypertension Social History Smoke: <1 pack per day ALCOHOL: none Drugs: None Current Medications Current Medications Current Medications Labetalol HCl (Normodyne Iv Push) 10 mg 1X ONCE IVP Last administered on 07/18/21at 15:15; Start 07/18/21 at 15:15; Stop 07/18/21 at 15:16; Status DC Prochlorperazine Edisylate (Compazine) 10 mg 1X ONCE IV Last administered on 07/18/21at 15:15; Start 07/18/21 at 15:15; Stop 07/18/21 at 15:16; Status DC Diphenhydramine HCl (Benadryl) 25 mg 1X ONCE IVP Last administered on 07/18/21at 15:15; Start 07/18/21 at 15:15; Stop 07/18/21 at 15:16; Status DC Diphenhydramine HCl (Benadryl) 25 mg 1X ONCE IVP Last administered on 07/18/21at 15:31; Start 07/18/21 at 15:30; Stop 07/18/21 at 15:31; Status DC Ketorolac Tromethamine (Toradol 30mg Vial) 30 mg 1X ONCE IVP Last administered on 07/18/21at 16:40; Start 07/18/21 at 16:30; Stop 07/18/21 at 16:31; Status DC Active Scripts Active Zyrtec (Cetirizine Hcl) 10 Mg Tablet 1 Tab PO DAILY Tessalon Perle (Benzonatate) 100 Mg Capsule 1 Cap PO TID Proair Hfa (Albuterol Sulfate) 8.5 Gm Hfa.aer.ad 2 Puff IH PRN Q4-6HRS PRN 21 Days Prednisone 50 Mg Tablet 1 Tab PO DAILY Zofran (Ondansetron Hcl) 4 Mg Tablet 1 Tab PO Q6HRS Medi-Patch With Lidocaine (Lidocain/Me-Salicyl/Caps/Menth) 1 Each Adh..patch 1 Each TP DAILY 14 Days Reported Hydrocodone-Acetamin 5-325 mg (Hydrocodone/Acetaminophen) 1 Each Tablet 5-325 Mg PO PRN Q4-6HRS PRN Metoprolol Tartrate 25 Mg Tablet 25 Mg PO BID Amlodipine Besylate 10 Mg Tablet 10 Mg PO DAILY Effexor Xr (Venlafaxine Hcl) 150 Mg Cap.er.24h 150 Mg PO DAILY Adderall Xr 30 Mg Capsule (Dextroamphetamine/Amphetamine) 30 Mg Cap.er.24h 1 Cap PO DAILY Allergies Allergies: Coded Allergies: lamotrigine (Verified Allergy, Severe, FACIAL SWELLING, SOB, 07/18/21) lisinopril (Verified Allergy, Severe, SOB, RASH, 07/18/21) Penicillins (Verified Allergy, Intermediate, RASH, N/V, 07/18/21) latex (Verified Allergy, Intermediate, RASH, ITCHING, 07/18/21) prochlorperazine (Verified Adverse Reaction, Severe, panic attack, 2) Pt begins hyperventilating, reports feelings of "crawling out of skin" following compazine administration. ROS General: YES: Fatigue, Malaise; No: Chills, Night Sweats, Appetite, Other PSYCHOLOGICAL ROS: YES: Anxiety, Depression, Mood Swings; No: Behavioral Disorder, Concentration difficultie, Decreased libido, Disorientation, Hallucinations, Hostility, Irritablity, Memory difficulties, Obsessive thoughts, Physical abuse, Sexual abuse, Sleep disturbances, Suicidal i deation, Other Eyes: Yes Blurry vision; No Decreased vision, No Double vision, No Dry eyes, No Excessive tearing, No Eye Pain, No Itchy Eyes, No Loss of vision, No Photophobia, No Scotomata, No Uses contacts, No Uses glasses, No Other HEENT: YES: Heacaches, Visual Changes, Hearing change; No: Nasal congestion, Nasal discharge, Oral lesions, Sinus pain, Sore Throat, Epistaxis, Sneezing, Snoring, Tinnitus, Vertigo, Vocal changes, Other ALLERGY AND IMMUNOLOGY: YES: Nasal Congestion; No: Hives, Insect Bite Sensitivity, Itchy/Watery Eyes, Post Nasal Drip, Seasonal Allergies, Other Hematological and Lymphatic: No: Bleeding Problems, Blood Clots, Blood Transfusions, Brusing, Night Sweats, Pallor, Swollen Lymph Nodes, Other ENDOCRINE: No: Breast Changes, Galactorrhea, Hair Pattern Changes, Hot Flashes, Malaise/lethargy, Mood Swings, Palpitations, Polydipsia/polyuria, Skin Changes, Temperature Intolerance, Unexpected Weight Changes, Other Breast: No New/Changing Breast Lumps, No Nipple changes, No Nipple discharge, No Other Respiratory: No: Cough, Hemoptysis, Orthopnea, Pleuritic Pain, Shortness of breath, SOB with excertion, Sputum Changes, Stridor, Tachypnea, Wheezing, Other Cardiovascular: No Chest Pain, No Palpitations, No Orthopnea, No Paroxysmal Noc. Dyspnea, No Edema, No Lt Headedness, No Other Gastrointestinal: Yes Nausea; No Vomiting, No Abdominal Pain, No Diarrhea, No Constipation, No Melena, No Hematochezia, No Other Genitourinary: No Dysuria, No Frequency, No Incontinence, No Hematuria, No Retention, No Discharge, No Urgency, No Pain, No Flank Pain, No Other, No , No , No , No , No , No , No Musculoskeletal: No Gait Disturbance, No Joint Pain, No Joint Stiffness, No Joint Swelling, No Muscle Pain, No Muscular Weakness, No Pain In:, No Swelling In:, No Other Neurological: Yes Headaches; No Behavorial Changes, No Bowel/Bladder ControlChng, No Confusion, No Dizziness, No Gait Disturbance, No Impaired Coord/balance, No Memory Loss, No Numbness/Tingling, No Seizures, No Speech Problems, No Tremors, No Visual Changes, No Weakness, No Other Skin: No Dry Skin, No Eczema, No Hair Changes, No Lumps, No Mole Changes, No Mottling, No Nail Changes, No Pruritus, No Rash, No Skin Lesion Changes, No Other, No Acne Physical Exam General: Alert, Oriented X3, Cooperative, moderate distress HEENT: Atraumatic, PERRLA, EOMI, Mucous membr. moist/pink Lungs: Clear to auscultation, Normal air movement Heart: S1S2, RRR, no thrills, no rubs, no gallops, no murmurs Abdomen: Normal bowel sounds, Soft, No tenderness, No hepatosplenomegaly, No masses Rectal Exam: not examined Extremities: No clubbing, No cyanosis, No edema, Normal pulses, No tenderness/swelling Skin: No rashes, No breakdown, No significant lesion Neuro: Normal gait, Normal speech, Strength at 5/5 X4 ext, Normal tone, Sensation intact, Cranial nerves 3-12 NL, Reflexes 2+ Psych/Mental Status: Mental status NL, Mood NL Vitals Vitals Vital Signs Date Time Temp Pulse Resp B/P (MAP) Pulse Ox O2 Delivery O2 Flow Rate FiO2 07/18/21 16:50 173/99 (123) 07/18/21 15:35 84 20 97 07/18/21 13:58 98.5 Room Air 98.5 Labs Labs Laboratory Tests Test 07/18/21 13:53 07/18/21 14:51 Urine Collection Type Unknown Urine Color (Auto) Light yellow Urine Turbidity Hazy Urine pH (Auto) 6.0 (<5.0-8.0) Urine Specific [place] 1.006 (1.000-1.030) Urine Protein (Auto) Negative mg/dL (Negative) Urine Glucose (Auto)(UA) Negative mg/dL (Negative) Urine Ketones (Auto) Negative mg/dL (Negative) Urine Blood (Auto) Moderate (Negative) Urine Nitrite Negative (Negative) Urine Bilirubin (Auto) Negative (Negative) Urine Urobilinogen (Auto) Normal mg/dL (Normal) Urine Leukocyte Esterase (Auto) Moderate (Negative) Urine RBC 6-10 /HPF (0-2) Urine WBC 5-10 /HPF (0-4) Urine Squamous Epithelial Cells Many /LPF Urine Bacteria Many /HPF (0-FEW) Urine Opiates Screen Neg (NEG) Urine Methadone Screen Neg (NEG) Urine Barbiturates Neg (NEG) Urine Phencyclidine Screen Neg (NEG) Urine Amphetamine/Methamphetamine Neg (NEG) Urine Benzodiazepines Screen Pos (NEG) Urine Cocaine Screen Neg (NEG) Urine Cannabinoids Screen Pos (NEG) Urine Ethyl Alcohol Neg (NEG) White Blood Count 10.6 x10^3/uL (4.0-11.0) Red Blood Count 4.45 x10^6/uL (3.50-5.40) Hemoglobin 13.4 g/dL (12.0-15.5) Hematocrit 39.1 % (36.0-47.0) Mean Corpuscular Volume 88 fL (79-100) Mean Corpuscular Hemoglobin 30 pg (25-35) Mean Corpuscular Hemoglobin Concent 34 g/dL (31-37) Red Cell Distribution Width 13.7 % (11.5-14.5) Platelet Count 219 x10^3/uL (140-400) Neutrophils (%) (Auto) 70 % (31-73) Lymphocytes (%) (Auto) 24 % (24-48) Monocytes (%) (Auto) 5 % (0-9) Eosinophils (%) (Auto) 1 % (0-3) Basophils (%) (Auto) 1 % (0-3) Neutrophils # (Auto) 7.4 x10^3/uL (1.8-7.7) Lymphocytes # (Auto) 2.5 x10^3/uL (1.0-4.8) Monocytes # (Auto) 0.5 x10^3/uL (0.0-1.1) Eosinophils # (Auto) 0.1 x10^3/uL (0.0-0.7) Basophils # (Auto) 0.1 x10^3/uL (0.0-0.2) Sodium Level 144 mmol/L (136-145) Potassium Level 3.4 mmol/L (3.5-5.1) Chloride Level 105 mmol/L (98-107) Carbon Dioxide Level 30 mmol/L (21-32) Anion Gap 9 (6-14) Blood Urea Nitrogen 10 mg/dL (7-20) Creatinine 1.1 mg/dL (0.6-1.0) Estimated GFR (Cockcroft-Gault) 62.2 BUN/Creatinine Ratio 9 (6-20) Glucose Level 94 mg/dL (70-99) Calcium Level 8.7 mg/dL (8.5-10.1) Magnesium Level 1.9 mg/dL (1.8-2.4) Total Bilirubin 0.4 mg/dL (0.2-1.0) Aspartate Amino Transf (AST/SGOT) 9 U/L (15-37) Alanine Aminotransferase (ALT/SGPT) 16 U/L (14-59) Alkaline Phosphatase 102 U/L (46-116) Troponin I High Sensitivity 14 ng/L (4-50) BI-Mof-K-Type Natriuretic Peptide 435 pg/mL (0-124) Total Protein 7.2 g/dL (6.4-8.2) Albumin 3.1 g/dL (3.4-5.0) Albumin/Globulin Ratio 0.8 (1.0-1.7) Laboratory Tests Test 07/18/21 13:53 07/18/21 14:51 Urine Collection Type Unknown Urine Color (Auto) Light yellow Urine Turbidity Hazy Urine pH (Auto) 6.0 (<5.0-8.0) Urine Specific [place] 1.006 (1.000-1.030) Urine Protein (Auto) Negative mg/dL (Negative) Urine Glucose (Auto)(UA) Negative mg/dL (Negative) Urine Ketones (Auto) Negative mg/dL (Negative) Urine Blood (Auto) Moderate (Negative) Urine Nitrite Negative (Negative) Urine Bilirubin (Auto) Negative (Negative) Urine Urobilinogen (Auto) Normal mg/dL (Normal) Urine Leukocyte Esterase (Auto) Moderate (Negative) Urine RBC 6-10 /HPF (0-2) Urine WBC 5-10 /HPF (0-4) Urine Squamous Epithelial Cells Many /LPF Urine Bacteria Many /HPF (0-FEW) Urine Opiates Screen Neg (NEG) Urine Methadone Screen Neg (NEG) Urine Barbiturates Neg (NEG) Urine Phencyclidine Screen Neg (NEG) Urine Amphetamine/Methamphetamine Neg (NEG) Urine Benzodiazepines Screen Pos (NEG) Urine Cocaine Screen Neg (NEG) Urine Cannabinoids Screen Pos (NEG) Urine Ethyl Alcohol Neg (NEG) White Blood Count 10.6 x10^3/uL (4.0-11.0) Red Blood Count 4.45 x10^6/uL (3.50-5.40) Hemoglobin 13.4 g/dL (12.0-15.5) Hematocrit 39.1 % (36.0-47.0) Mean Corpuscular Volume 88 fL (79-100) Mean Corpuscular Hemoglobin 30 pg (25-35) Mean Corpuscular Hemoglobin Concent 34 g/dL (31-37) Red Cell Distribution Width 13.7 % (11.5-14.5) Platelet Count 219 x10^3/uL (140-400) Neutrophils (%) (Auto) 70 % (31-73) Lymphocytes (%) (Auto) 24 % (24-48) Monocytes (%) (Auto) 5 % (0-9) Eosinophils (%) (Auto) 1 % (0-3) Basophils (%) (Auto) 1 % (0-3) Neutrophils # (Auto) 7.4 x10^3/uL (1.8-7.7) Lymphocytes # (Auto) 2.5 x10^3/uL (1.0-4.8) Monocytes # (Auto) 0.5 x10^3/uL (0.0-1.1) Eosinophils # (Auto) 0.1 x10^3/uL (0.0-0.7) Basophils # (Auto) 0.1 x10^3/uL (0.0-0.2) Sodium Level 144 mmol/L (136-145) Potassium Level 3.4 mmol/L (3.5-5.1) Chloride Level 105 mmol/L (98-107) Carbon Dioxide Level 30 mmol/L (21-32) Anion Gap 9 (6-14) Blood Urea Nitrogen 10 mg/dL (7-20) Creatinine 1.1 mg/dL (0.6-1.0) Estimated GFR (Cockcroft-Gault) 62.2 BUN/Creatinine Ratio 9 (6-20) Glucose Level 94 mg/dL (70-99) Calcium Level 8.7 mg/dL (8.5-10.1) Magnesium Level 1.9 mg/dL (1.8-2.4) Total Bilirubin 0.4 mg/dL (0.2-1.0) Aspartate Amino Transf (AST/SGOT) 9 U/L (15-37) Alanine Aminotransferase (ALT/SGPT) 16 U/L (14-59) Alkaline Phosphatase 102 U/L (46-116) Troponin I High Sensitivity 14 ng/L (4-50) WY-Gpj-L-Type Natriuretic Peptide 435 pg/mL (0-124) Total Protein 7.2 g/dL (6.4-8.2) Albumin 3.1 g/dL (3.4-5.0) Albumin/Globulin Ratio 0.8 (1.0-1.7) Images Images PORTABLE CHEST 1V EXAM: AP View of the chest DATE: 07/18/2021 2:32 PM INDICATION: dizziness COMPARISON: 05/06/2019 01/03/2019 FINDINGS: The heart is not enlarged. Mediastinal and hilar contours are normal. Calcified left hilar lymph nodes. Accounting for prominent overlying soft tissues, no focal parenchymal airspace opacity. No pleural effusion or pneumothorax. IMPRESSION: 1. No radiographic evidence for acute cardiopulmonary process. CT HEAD WO CONTRAST EXAMINATION: CT HEAD/BRAIN WO CLINICAL HISTORY: Dizziness. TECHNIQUE: Serial axial images without IV contrast were obtained from the vertex to the foramen magnum. CT Dose Reduction Employed: One or more of the following individualized dose reduction techniques were utilized for this examination: 1. Automated exposure control 2. Adjustment of the mA and/or kV according to patient size 3. Use of iterative reconstruction technique. COMPARISON: 01/03/2019 FINDINGS: Acute Change: No evidence of an acute infarct or other acute parenchymal process. Hemorrhage: No evidence of acute intracranial hemorrhage. Mass Lesion/Mass Effect: No evidence of intracranial mass or extraaxial fluid collection. No significant mass effect. Chronic Change: Scattered patchy foci of hypoattenuation in the supratentorial white matter, nonspecific but likely represents mild microvascular ischemia. Atherosclerotic calcification of the intracranial portion of the bilateral internal carotid arteries. Parenchyma: Mild generalized volume loss. Ventricles: Ventricles within normal limits for age. Paranasal Sinuses and Skull Base: Visualized paranasal sinuses clear. Visualized skull base and soft tissues unremarkable. IMPRESSION: No evidence of acute intracranial abnormality. VTE Prophylaxis Ordered VTE Prophylaxis Devices: Yes VTE Pharmacological Prophylaxi: Yes Assessment/Plan Assessment/Plan Hypertensive urgency/emergency - IV labetalol, restart home toprol, prn hydralazine IV Intractable headache -side effect from Compazine became delirious for short-term had Toradol with some improvement and will hopefully get better improvement with her metoprolol and Excedrin Migraine Depression with Anxiety -hold Effexor given elevated blood pressure will transition to Cymbalta. Trazodone H/o TIA - cont ASA Glaucoma - she does not know if she is supposed to take eye drops HLD - has been somewhat lost to follow up, will obtain fasting lipids Abnormal EKG - now appears to have peaking of p-waves in II indicating left atrial enlargement/abnormality. She does note history of cardiac ablation she thinks at [facility]. Consult cardiology, will need to get further details Hypokalemia - replace PO, monitor Moderate PCM - circuit board repair technician consultation may be in order FEN - Cardiac diet PPX - lovenox FULL CODE Dispo - inpatient Justifications for Admission Other Justification DAVID PURCELL MD July 18, 2021 17:03
[2021-07-18] MEDS ORDERED: ONDANSETRON PF 4 MG/2 ML VIAL. IVP PRN (17:15)
[2021-07-18] MEDS ORDERED: hydrALAZINE 20 MG/ML VIAL. IVP PRN (17:15)
[2021-07-18] MEDS ORDERED: LABETALOL 20 MG/4 ML DISP.SYRIN. IVP PRN (18:15)
[2021-07-18] MEDS: METOPROLOL SUCC 24HR ER 50 MG TAB.ER.24H. PO SCH (18:21)
[2021-07-18 19:00] VITALS: BP 159/99
[2021-07-18] MEDS ORDERED: VENL75TA PO (19:32)
[2021-07-18] MEDS ORDERED: VALIUM10 MG PO (19:33)
[2021-07-18] MEDS ORDERED: DIPH25CA58 PO (19:34)
[2021-07-18] MEDS ORDERED: CETIRIZINE HCL 10 MG TABLET. PO PRN (20:00)
[2021-07-18] MEDS ORDERED: FLUTICASONE 50MCG/NASAL SPRAY 16GM BOTTLE. NS PRN (20:00)
[2021-07-18] MEDS ORDERED: POTASSIUM CHLORIDE 20 MEQ TABLET.ER. PO ONE (20:30)
[2021-07-18] MEDS ORDERED: MAGNESIUM OXIDE 400 MG TABLET PO ONE (20:30)
[2021-07-18] MEDS: DULoxetine HCL 30 MG CAPSULE.DR PO SCH (20:31)
[2021-07-18] MEDS: traZODone 100 MG TABLET. PO PRN (20:32)
[2021-07-18] MEDS: ASA/APAP/CAFFEINE 250/250/65MG TABLET. PO PRN (20:32)
[2021-07-18] MEDS: ENOXAPARIN 40 MG/0.4 ML SYRINGE. SQ SCH (20:36)
--- NOTE | 2021-07-18 22:07 | NUR ---
Admit prior to shift change from ER to [facility] room 648. A/O x 4. Pleasant. Cooperative. Reviewed home med list and preferred pharmacy. Orientated to room and call light. Spoke with Dr Montalvo and obtained orders. Lives home alone. , daughter, is call or contact centre manager. Resting in bed eating snack watching TV. Call light at hand.
[2021-07-18 23:00] VITALS: BP 138/79
[2021-07-19 03:00] VITALS: BP 138/84
--- NOTE | 2021-07-19 05:25 | NUR ---
Daughter, , , called this morning to check on patient and leave her number.
[2021-07-19 07:26] VITALS: BP 143/96
[2021-07-19 08:15] LABS: CALCIUM 8.7 mg/dL (8.5-10.1); CREATININE 0.9 mg/dL (0.6-1.0); GFR 78.4; POTASSIUM 3.8 mmol/L (3.5-5.1)
[2021-07-19] MEDS: DULoxetine HCL 30 MG CAPSULE.DR PO SCH (08:28)
[2021-07-19] MEDS: METOPROLOL SUCC 24HR ER 50 MG TAB.ER.24H. PO SCH (08:28)
[2021-07-19] MEDS: ASA/APAP/CAFFEINE 250/250/65MG TABLET. PO PRN ×2 (08:28→18:08)
[2021-07-19] MEDS: ENOXAPARIN 40 MG/0.4 ML SYRINGE. SQ SCH ×2 (08:29→20:29)
--- NOTE | 2021-07-19 09:31 | PDOC2 ---
SARAH JOHNS MACHINE FASTENER 07/19/21 0931: CARDIAC CONSULT DATE OF CONSULT Date of Consult DATE: 07/19/21 TIME: 08:54 REASON FOR CONSULT Reason for Consult: HTN urgency, tachycardia REFERRING PHYSICIAN Referring Physician: Jesse SOURCE Source: Chart review, Patient HISTORY OF PRESENT ILLNESS HISTORY OF PRESENT ILLNESS This is a pleasant 56 yo male admitted for complains of ALANIS. This was associated with blurred vision. Also reports of throbbing intermittent chest pain and has been having some MIRANDA and attributing it to being out of shape. Apparently she ran out of her BP medication about 2 months ago and failed to talk to her PCP as she did not want to be scolded. She also PAST MEDICAL HISTORY Cardiovascular: CAD (no past intervention noted mild in the past), CHF, HTN, Hyperlipidemia, Other (NICM; PSVT/AVNRT) Pulmonary: Other (pulmonary nodules) CENTRAL NERVOUS SYSTEM: TIA GI: GERD Heme/Onc: Anemia NOS, B12 deficiency Psych: Anxiety, Depression Musculoskeletal: Osteoarthritis, Other (cervical stenosis) Rheumatologic: No pertinent hx Infectious disease: No pertinent hx ENT: No pertinent hx Renal/: Other (nephrolithiasis) Endocrine: No pertinent hx Dermatology: No pertinent hx PAST SURGICAL HISTORY Past Surgical History: Hernia Repair, Tonsillectomy, Hysterectomy, Other (cardiac ablation in 2014, cystoscopy) FAMILY HISTORY Family History: Diabetes, Hypertension SOCIAL HISTORY Smoke: <1 pack per day ALCOHOL: none Drugs: Marijuana Lives: with Family CURRENT MEDICATIONS CURRENT MEDICATIONS Current Medications Medications (Trade) Dose Ordered Sig/Abner Route PRN Reason Start Time Stop Time Status Last Admin Dose Admin Labetalol HCl (Normodyne Iv Push) 10 mg 1X ONCE IVP 07/18/21 15:15 07/18/21 15:16 DC 07/18/21 15:15 Prochlorperazine Edisylate (Compazine) 10 mg 1X ONCE IV 07/18/21 15:15 07/18/21 15:16 DC 07/18/21 15:15 Diphenhydramine HCl (Benadryl) 25 mg 1X ONCE IVP 07/18/21 15:15 07/18/21 15:16 DC 07/18/21 15:15 Diphenhydramine HCl (Benadryl) 25 mg 1X ONCE IVP 07/18/21 15:30 07/18/21 15:31 DC 07/18/21 15:31 Ketorolac Tromethamine (Toradol 30mg Vial) 30 mg 1X ONCE IVP 07/18/21 16:30 07/18/21 16:31 DC 07/18/21 16:40 Acetaminophen/ Aspirin/Caffeine (Excedrin Migraine) 1 tab PRN Q6HRS PRN PO MIGRAINE HEADACHE 07/18/21 17:15 07/19/21 08:28 Metoprolol Succinate (Toprol Xl) 50 mg DAILY PO 07/18/21 18:15 07/19/21 08:28 Duloxetine HCl (Cymbalta) 30 mg DAILY PO 07/18/21 20:00 07/19/21 08:28 Trazodone HCl (Desyrel) 100 mg PRN QHS PRN PO INSOMNIA 07/18/21 19:45 07/18/21 20:32 Magnesium Oxide (Magnesium Oxide) 400 mg 1X ONCE PO 07/18/21 20:30 07/18/21 20:31 DC 07/18/21 20:31 Potassium Chloride (Klor-Con) 40 meq 1X ONCE PO 07/18/21 20:30 07/18/21 20:31 DC 07/18/21 20:31 Enoxaparin Sodium (Lovenox 40mg Syringe) 40 mg BID SQ 07/18/21 21:00 07/19/21 08:29 ALLERGIES ALLERGIES: Coded Allergies: lamotrigine (Verified Allergy, Severe, FACIAL SWELLING, SOB, 07/18/21) lisinopril (Verified Allergy, Severe, SOB, RASH, 07/18/21) Penicillins (Verified Allergy, Intermediate, RASH, N/V, 07/18/21) latex (Verified Allergy, Intermediate, RASH, ITCHING, 07/18/21) prochlorperazine (Verified Adverse Reaction, Severe, panic attack, 07/18/21) Pt begins hyperventilating, reports feelings of "crawling out of skin" following compazine administration. ROS Review of System 14 point ROS evlauated with pertinent positives noted per HPI PHYSICAL EXAM General: Alert, Oriented X3, Cooperative, No acute distress HEENT: Atraumatic, Mucous membr. moist/pink Lungs: Clear to auscultation, Normal air movement Heart: Regular rate (SR with PVCs), Normal S1, Normal S2, No murmurs Abdomen: Soft, No tenderness Extremities: No cyanosis, No edema Skin: No breakdown, No significant lesion Neuro: Normal speech, Sensation intact Psych/Mental Status: Mental status NL, Mood NL MUSCULOSKELETAL: Osteoarthritic changes both hands VITALS/I&O VITALS/I&O: Vital Signs Date Time Temp Pulse Resp B/P (MAP) Pulse Ox O2 Delivery O2 Flow Rate FiO2 07/19/21 08:28 77 143/96 07/19/21 07:26 97.8 16 97 Room Air 97.8 I & O 07/18/21 07/18/21 07/19/21 15:00 23:00 07:00 Intake Total 100 ml 150 ml Balance 100 ml 150 ml LABS Lab: Laboratory Tests Test 07/18/21 13:53 07/18/21 14:51 07/19/21 07:40 Urine Collection Type Unknown Urine Color (Auto) Light yellow Urine Turbidity Hazy Urine pH (Auto) 6.0 (<5.0-8.0) Urine Specific [place] 1.006 (1.000-1.030) Urine Protein (Auto) Negative mg/dL (Negative) Urine Glucose (Auto)(UA) Negative mg/dL (Negative) Urine Ketones (Auto) Negative mg/dL (Negative) Urine Blood (Auto) Moderate (Negative) Urine Nitrite Negative (Negative) Urine Bilirubin (Auto) Negative (Negative) Urine Urobilinogen (Auto) Normal mg/dL (Normal) Urine Leukocyte Esterase (Auto) Moderate (Negative) Urine RBC 6-10 /HPF (0-2) Urine WBC 5-10 /HPF (0-4) Urine Squamous Epithelial Cells Many /LPF Urine Bacteria Many /HPF (0-FEW) Urine Opiates Screen Neg (NEG) Urine Methadone Screen Neg (NEG) Urine Barbiturates Neg (NEG) Urine Phencyclidine Screen Neg (NEG) Urine Amphetamine/Methamphetamine Neg (NEG) Urine Benzodiazepines Screen Pos (NEG) Urine Cocaine Screen Neg (NEG) Urine Cannabinoids Screen Pos (NEG) Urine Ethyl Alcohol Neg (NEG) White Blood Count 10.6 x10^3/uL (4.0-11.0) Red Blood Count 4.45 x10^6/uL (3.50-5.40) Hemoglobin 13.4 g/dL (12.0-15.5) Hematocrit 39.1 % (36.0-47.0) Mean Corpuscular Volume 88 fL (79-100) Mean Corpuscular Hemoglobin 30 pg (25-35) Mean Corpuscular Hemoglobin Concent 34 g/dL (31-37) Red Cell Distribution Width 13.7 % (11.5-14.5) Platelet Count 219 x10^3/uL (140-400) Neutrophils (%) (Auto) 70 % (31-73) Lymphocytes (%) (Auto) 24 % (24-48) Monocytes (%) (Auto) 5 % (0-9) Eosinophils (%) (Auto) 1 % (0-3) Basophils (%) (Auto) 1 % (0-3) Neutrophils # (Auto) 7.4 x10^3/uL (1.8-7.7) Lymphocytes # (Auto) 2.5 x10^3/uL (1.0-4.8) Monocytes # (Auto) 0.5 x10^3/uL (0.0-1.1) Eosinophils # (Auto) 0.1 x10^3/uL (0.0-0.7) Basophils # (Auto) 0.1 x10^3/uL (0.0-0.2) Sodium Level 144 mmol/L (136-145) 143 mmol/L (136-145) Potassium Level 3.4 mmol/L (3.5-5.1) L 3.8 mmol/L (3.5-5.1) Chloride Level 105 mmol/L (98-107) 106 mmol/L (98-107) Carbon Dioxide Level 30 mmol/L (21-32) 28 mmol/L (21-32) Anion Gap 9 (6-14) 9 (6-14) Blood Urea Nitrogen 10 mg/dL (7-20) 13 mg/dL (7-20) Creatinine 1.1 mg/dL (0.6-1.0) H 0.9 mg/dL (0.6-1.0) Estimated GFR (Cockcroft-Gault) 62.2 78.4 BUN/Creatinine Ratio 9 (6-20) Glucose Level 94 mg/dL (70-99) 91 mg/dL (70-99) Calcium Level 8.7 mg/dL (8.5-10.1) 8.7 mg/dL (8.5-10.1) Magnesium Level 1.9 mg/dL (1.8-2.4) Total Bilirubin 0.4 mg/dL (0.2-1.0) Aspartate Amino Transferase (AST) 9 U/L (15-37) L Alanine Aminotransferase (ALT) 16 U/L (14-59) Alkaline Phosphatase 102 U/L (46-116) Troponin I High Sensitivity 14 ng/L (4-50) SY-Gqi-R-Type Natriuretic Peptide 435 pg/mL (0-124) H Total Protein 7.2 g/dL (6.4-8.2) Albumin 3.1 g/dL (3.4-5.0) L Albumin/Globulin Ratio 0.8 (1.0-1.7) L Laboratory Tests 07/18/21 14:51 Laboratory Tests 07/18/21 14:51 07/19/21 07:40 ECHOCARDIOGRAM ECHOCARDIOGRAM Result Date: 08/27/2020 [facility] Left Ventricle: The left ventricle is moderately dilated. The left ventricular wall thickness is normal. The left ventricular systolic function is moderately reduced. The visually estimated ejection fraction is 35%. There is diffuse hypokinesis. Left ventricular diastolic dysfunction. Unable to assess left atrial pressure. Right Ventricle: The right ventricular size is normal. The right ventricular systolic function is normal. No hemodynamically significant valvular abnormalities. HEART CATH HEART CATH CORONARY ANGIOGRAPHY: [facility] The coronary anatomy was right dominant. The left main coronary artery was normal. The LAD was normal. The diagonal branches were normal. Left circumflex artery has minimal disease. Marginal branches have minimal disease. Right coronary artery is a large dominant vessel. It has a proximal 50% focal lesion. Mid and distal RCA have no significant disease. RPDA and RPLV have mini mal disease. RFR evaluation of the RCA was performed. The RFR was 0.95, indicating no evidence of hemodynamically significant disease there. CONCLUSIONS: Nonobstructive coronary artery disease in proximal RCA as described above. Normal LV filling pressure and central aortic pressure. RECOMMENDATIONS: Medical therapy. Agustin Briceno MD GP/Brent 08/29/2020 ASSESSMENT/PLAN ASSESSMENT/PLAN 1. Hypertension urgency: due to poor med compliance. better 2. Hypokalemia: replaced 3. Marijuana 4. Tobacco abuse 5. Possible UTI with hx of nephrolithiasis 6. CAD: [facility] 08/2020 nonobstructive 7. Atypical CP but with some MIRANDA possibly from deconditioning. No acute EKG ch anges 8. Obesity 9. Hx of TIA 10. Hx of AVNRT with cardiac ablation in 2014 11. NICM 12, Anxiety depression 13. ALANIS/blurred vision: possibly from HTN Recommendations 1. BP better. Continue toprol and add aldactone 2. TSH, FLP and TTE with bubble study. Repeat troponin 3. ASA, statin 4. TTE 5. Smoking cessation 6. Discussed compliance 7. Outpt stress test LOVE GARCIA MD 07/19/21 1343: CARDIAC CONSULT ASSESSMENT/PLAN ASSESSMENT/PLAN Patient seen and examined. Agree with SHEEP HERDER's assessment and plan. Accelerated hypertension secondary to noncompliance, better controlled since admission Chest pain with atypical features Cardiac cath in 2020 showed nonobstructive coronary artery disease AVNRT s/p ablation therapy, presently sinus rhythm Check 2D echo to assess LV systolic function Ischemic evaluation could be considered as an outpatient Thank you for your consultation SARAH JOHNS APRN July 19, 2021 09:31 LOVE GARCIA MD July 19, 2021 13:43
[2021-07-19] MEDS: SPIRONOLACTONE 25 MG TABLET PO SCH (09:39)
[2021-07-19] MEDS: ASPIRIN ENTERIC COATED 81 MG TABLET.DR. PO SCH (09:39)
--- NOTE | 2021-07-19 10:18 | NUR ---
SS following for discharge planning. SS reviewed pt chart and discussed with pt RN. Pt is from home and is currently on room air. Cardiology consulted. PT/OT ordered. OT recommended home independent. SS will continue to follow for discharge planning.
[2021-07-19 11:00] VITALS: BP 155/68
--- NOTE | 2021-07-19 12:07 | PDOC ---
[employer] PROGRESS NOTE Date of Service DOS: DATE: 07/19/21 TIME: 12:00 Chief Complaint Chief Complaint Hypertensive emergency -with hypertensive encephalopathy improved with some mild with IV labetalol, restart home toprol, prn hydralazine IV Intractable headache -side effect from Compazine became delirious for short-term had Toradol with some improvement and will hopefully get better improvement with her metoprolol and Excedrin Migraine Depression with Anxiety -hold Effexor given elevated blood pressure will transition to Cymbalta. Trazodone H/o TIA - cont ASA. echo with bubble study to r/o PFO CAD - per cardiology [facility] 08/2020 nonobstructive Glaucoma - she does not know if she is supposed to take eye drops HLD - has been somewhat lost to follow up, will obtain fasting lipids Abnormal EKG - now appears to have peaking of p-waves in II indicating left atrial enlargement/abnormality. She does note history of cardiac ablation she t mark at [facility]. 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 She complains of being able to hear her heartbeat in her ears. She also notes intermittent vision blurriness these both been progressively worse over the last 2 days. She is also noted dizziness over the last week. She notes she has not filled her metoprolol succinate 50 mg twice daily as prescribed by her primary care physician for several months due to difficulty getting to appointments. She tells ED staff and myself that she thinks she is supposed to be maintained on this because she has a history of cardiac ablation at [facility] but she cannot remember when this happened. She has no chest pain has a little bit of shortness of breath has occasional nausea no constipation or diarrhea no urinary complaints no numbness or tingling no focal weakness. She has no recent travel or sick contacts. She is fully vaccinated as COVID-19 She still smokes at least 5 cigarettes every day blood pressure in the ED is 187/111 after IV labetalol, 201/102 Filled venlafaxine 150 mg diazepam 10 mg and Banophen as well as amphetamine 15 mg in the last 3 months and was on Toprol succinate 50 mg twice daily back in February. She is concerned about getting back on her venlafaxine. I advised her this is a medication that increases blood pressure should seek an alternative antidepressant and she is amenable to start on Cymbalta and trazodone. Labs WBC 10.6, Hb 13.4, platelets 219, NA 144, K3.4, BUN 10, CR 1.1 LFTs within normal laboratory limits with exception of albumin 3.1, NT proBNP was 435 high- sensitivity troponin initially was 14 urine drug screen positive for be nzodiazepines and cannabinoids, urinalysis with moderate leuk esterase but many squamous epithelial cells likely contaminant CT head with no acute intracranial abnormalities. Chest radiograph on my interpretation no acute abnormalities possible borderline cardiomegaly. EKG on my interpretation sinus rhythm with leftward axis, increased P wave amplitude indicates left atrial enlargement, no T WI, QTC minimally prolonged at 486. Due to uncontrolled hypertension symptoms admitted for further care 07/19: Blood pressure systolic still in the 150s. Patient notes she was definitely confused last night and now recalls that her cardiac arrhythmia was in 2014. She is still somewhat anxious and afraid of not having her venlafaxine. Discussed with cardiology need for echocardiogram with bubble study given her confusion which could be dismissed as hypertensive encephalopathy would like to rule out PFO and likely TIA which is possible Consults: Cardiology Vitals/I&O Vitals/I&O: Vital Signs Date Time Temp Pulse Resp B/P (MAP) Pulse Ox O2 Delivery O2 Flow Rate FiO2 07/19/21 11:00 98.0 70 18 155/68 (97) 95 Room Air 98.0 I & O 07/18/21 07/18/21 07/19/21 15:00 23:00 07:00 Intake Total 100 ml 150 ml Balance 100 ml 150 ml Physical Exam General: Alert, Oriented X3, Cooperative, No acute distress Heart: Regular rate (SR with PVCs), Normal S1, Normal S2, No murmurs Lungs: Clear Abdomen: Soft, No tenderness Extremities: No cyanosis, No edema Skin: No breakdown, No significant lesion Labs Labs: Laboratory Tests Test 07/18/21 13:53 07/18/21 14:51 07/19/21 07:40 07/19/21 08:50 Urine Collection Type Unknown Urine Color (Auto) Light yellow Urine Turbidity Hazy Urine pH (Auto) 6.0 (<5.0-8.0) Urine Specific [place] 1.006 (1.000-1.030) Urine Protein (Auto) Negative mg/dL (Negative) Urine Glucose (Auto)(UA) Negative mg/dL (Negative) Urine Ketones (Auto) Negative mg/dL (Negative) Urine Blood (Auto) Moderate (Negative) Urine Nitrite Negative (Negative) Urine Bilirubin (Auto) Negative (Negative) Urine Urobilinogen (Auto) Normal mg/dL (Normal) Urine Leukocyte Esterase (Auto) Moderate (Negative) Urine RBC 6-10 /HPF (0-2) Urine WBC 5-10 /HPF (0-4) Urine Squamous Epithelial Cells Many /LPF Urine Bacteria Many /HPF (0-FEW) Urine Opiates Screen Neg (NEG) Urine Methadone Screen Neg (NEG) Urine Barbiturates Neg (NEG) Urine Phencyclidine Screen Neg (NEG) Urine Amphetamine/Methamphetamine Neg (NEG) Urine Benzodiazepines Screen Pos (NEG) Urine Cocaine Screen Neg (NEG) Urine Cannabinoids Screen Pos (NEG) Urine Ethyl Alcohol Neg (NEG) White Blood Count 10.6 x10^3/uL (4.0-11.0) Red Blood Count 4.45 x10^6/uL (3.50-5.40) Hemoglobin 13.4 g/dL (12.0-15.5) Hematocrit 39.1 % (36.0-47.0) Mean Corpuscular Volume 88 fL (79-100) Mean Corpuscular Hemoglobin 30 pg (25-35) Mean Corpuscular Hemoglobin Concent 34 g/dL (31-37) Red Cell Distribution Width 13.7 % (11.5-14.5) Platelet Count 219 x10^3/uL (140-400) Neutrophils (%) (Auto) 70 % (31-73) Lymphocytes (%) (Auto) 24 % (24-48) Monocytes (%) (Auto) 5 % (0-9) Eosinophils (%) (Auto) 1 % (0-3) Basophils (%) (Auto) 1 % (0-3) Neutrophils # (Auto) 7.4 x10^3/uL (1.8-7.7) Lymphocytes # (Auto) 2.5 x10^3/uL (1.0-4.8) Monocytes # (Auto) 0.5 x10^3/uL (0.0-1.1) Eosinophils # (Auto) 0.1 x10^3/uL (0.0-0.7) Basophils # (Auto) 0.1 x10^3/uL (0.0-0.2) Sodium Level 144 mmol/L (136-145) 143 mmol/L (136-145) Potassium Level 3.4 mmol/L (3.5-5.1) 3.8 mmol/L (3.5-5.1) Chloride Level 105 mmol/L (98-107) 106 mmol/L (98-107) Carbon Dioxide Level 30 mmol/L (21-32) 28 mmol/L (21-32) Anion Gap 9 (6-14) 9 (6-14) Blood Urea Nitrogen 10 mg/dL (7-20) 13 mg/dL (7-20) Creatinine 1.1 mg/dL (0.6-1.0) 0.9 mg/dL (0.6-1.0) Estimated GFR (Cockcroft-Gault) 62.2 78.4 BUN/Creatinine Ratio 9 (6-20) Glucose Level 94 mg/dL (70-99) 91 mg/dL (70-99) Calcium Level 8.7 mg/dL (8.5-10.1) 8.7 mg/dL (8.5-10.1) Magnesium Level 1.9 mg/dL (1.8-2.4) Total Bilirubin 0.4 mg/dL (0.2-1.0) Aspartate Amino Transf (AST/SGOT) 9 U/L (15-37) Alanine Aminotransferase (ALT/SGPT) 16 U/L (14-59) Alkaline Phosphatase 102 U/L (46-116) Troponin I High Sensitivity 14 ng/L (4-50) BG-Blv-U-Type Natriuretic Peptide 435 pg/mL (0-124) Total Protein 7.2 g/dL (6.4-8.2) Albumin 3.1 g/dL (3.4-5.0) Albumin/Globulin Ratio 0.8 (1.0-1.7) Thyroid Stimulating Hormone (TSH) 1.779 uIU/mL (0.358-3.74) Test 07/19/21 09:20 Triglycerides Level 72 mg/dL (0-150) Cholesterol Level 171 mg/dL (0-200) LDL Cholesterol, Calculated 100 mg/dL (0-100) VLDL Cholesterol, Calculated 14 mg/dL (0-40) Non-HDL Cholesterol Calculated 114 mg/dL (0-129) HDL Cholesterol 57 mg/dL (40-60) Cholesterol/HDL Ratio 3.0 Assessment and Plan Assessmemt and Plan Problems Medical Problems: (1) Hypertensive urgency Status: Acute Comment Review of Relevant I have reviewed the following items berta (where applicable) has been applied. Medications: Current Medications Medications (Trade) Dose Ordered Sig/Abner Route PRN Reason Start Time Stop Time Status Last Admin Dose Admin Labetalol HCl (Normodyne Iv Push) 10 mg 1X ONCE IVP 07/18/21 15:15 07/18/21 15:16 DC 07/18/21 15:15 Prochlorperazine Edisylate (Compazine) 10 mg 1X ONCE IV 07/18/21 15:15 07/18/21 15:16 DC 07/18/21 15:15 Diphenhydramine HCl (Benadryl) 25 mg 1X ONCE IVP 07/18/21 15:15 07/18/21 15:16 DC 07/18/21 15:15 Diphenhydramine HCl (Benadryl) 25 mg 1X ONCE IVP 07/18/21 15:30 07/18/21 15:31 DC 07/18/21 15:31 Ketorolac Tromethamine (Toradol 30mg Vial) 30 mg 1X ONCE IVP 07/18/21 16:30 07/18/21 16:31 DC 07/18/21 16:40 Acetaminophen/ Aspirin/Caffeine (Excedrin Migraine) 1 tab PRN Q6HRS PRN PO MIGRAINE HEADACHE 07/18/21 17:15 07/19/21 08:28 Metoprolol Succinate (Toprol Xl) 50 mg DAILY PO 07/18/21 18:15 07/19/21 08:28 Duloxetine HCl (Cymbalta) 30 mg DAILY PO 07/18/21 20:00 07/19/21 08:28 Trazodone HCl (Desyrel) 100 mg PRN QHS PRN PO INSOMNIA 07/18/21 19:45 07/18/21 20:32 Magnesium Oxide (Magnesium Oxide) 400 mg 1X ONCE PO 07/18/21 20:30 07/18/21 20:31 DC 07/18/21 20:31 Potassium Chloride (Klor-Con) 40 meq 1X ONCE PO 07/18/21 20:30 07/18/21 20:31 DC 07/18/21 20:31 Enoxaparin Sodium (Lovenox 40mg Syringe) 40 mg BID SQ 07/18/21 21:00 07/19/21 08:29 Spironolactone (Aldactone) 25 mg DAILY PO 07/19/21 10:00 07/19/21 09:39 Aspirin (Ecotrin) 81 mg DAILYWBKFT PO 07/19/21 10:00 07/19/21 09:39 Justifications for Admission Other Justification DAVID PURCELL MD July 19, 2021 12:07
[2021-07-19 14:35] VITALS: BP 126/72
--- NOTE | 2021-07-19 16:31 | CARD ---
MR#: [id number] Date of Study: 07/19/2021 Ordering Physician: SARAH JOHNS, Referring Physician: SARAH JOHNS, Tech: APPROVED REPORT EXAM: Two-dimensional and M-mode echocardiogram with Doppler and color Doppler. INDICATION CVA/TIA RISK FACTORS Hypertension Obesity Diabetes 2D DIMENSIONS RVDd2.0 (2.9-3.5cm)Left Atrium(2D)3.6 (1.6-4.0cm) IVSd0.9 (0.7-1.1cm)Aortic Root(2D)3.6 (2.0-3.7cm) LVDd5.4 (3.9-5.9cm)LVOT Diameter2.4 (1.8-2.4cm) PWd1.2 (0.7-1.1cm)LVDs4.4 (2.5-4.0cm) FS (%) 19.0 %SV54.8 ml LVEF(%)38.8 (>50%) Aortic Valve AoV Peak Stanley.116.0cm/sAoV VTI23.8cm AO Peak GR.5.4mmHgLVOT Peak Stanley.71.9cm/s AO Mean GR.3mmHgAVA (VMAX)2.79cm2 Mitral Valve MV E Giwxyavl03.9cm/sMV DECEL [id number] MV A Arjzmyjj50.6cm/sE/A Ratio0.7 Pulmonary Valve PV Peak Npkldjst97.8cm/s LEFT VENTRICLE The left ventricle is normal size. There is mild to moderate concentric left ventricular hypertrophy. The systolic function is moderately impaired. Estimated ejection fraction 40%. There is global hypok inesis of the left ventricle. Transmitral Doppler flow pattern is Grade I-abnormal relaxation pattern . RIGHT VENTRICLE The right ventricle is normal size. There is normal right ventricular wall thickness. The right ventr icular systolic function is normal. ATRIA The left atrium size is normal. The right atrium size is normal. The interatrial septum is intact wit h no evidence for an atrial septal defect or patent foramen ovale as noted on 2-D or Doppler imaging. Agitated saline contrast study is negative for right to left shunting. AORTIC VALVE The aortic valve is normal in structure and function. Doppler and Color Flow revealed no significant aortic regurgitation. There is no significant aortic valvular stenosis. MITRAL VALVE The mitral valve is normal in structure and function. There is no evidence of mitral valve prolapse. There is no mitral valve stenosis. Doppler and Color-flow revealed mild mitral regurgitation. TRICUSPID VALVE The tricuspid valve is normal in structure and function. Doppler and Color Flow revealed no tricuspid valve regurgitation noted. There is no tricuspid valve stenosis. PULMONIC VALVE Doppler and Color Flow revealed mild pulmonic valvular regurgitation. There is no pulmonic valvular s tenosis. GREAT VESSELS The aortic root is normal in size. The ascending aorta is normal in size. The IVC is normal in size a nd collapses >50% with inspiration. PERICARDIAL EFFUSION There is no evidence of significant pericardial effusion. Critical Notification Critical Value: No <Conclusion> The systolic function is moderately impaired. Estimated ejection fraction 40%. There is global hypokinesis of the left ventricle. The interatrial septum is intact with no evidence for an atrial septal defect or patent foramen ovale as noted on 2-D or Doppler imaging. Agitated saline contrast study is negative for right to left sh unting. Signed by : German Bruce, Electronically Approved : 07/19/2021 16:30:45
[2021-07-19 19:00] VITALS: BP 173/81
[2021-07-19] MEDS: traZODone 100 MG TABLET. PO PRN (20:29)
[2021-07-19] MEDS: BUTALB/APAP/CAFEIN 50/325/40MG TABLET. PO PRN (20:29)
[2021-07-19] MEDS ORDERED: ATORVASTATIN CALCIUM 40 MG TABLET. PO SCH (21:00)
[2021-07-19 22:38] VITALS: BP 142/81
[2021-07-20 03:00] VITALS: BP 131/85
--- NOTE | 2021-07-20 04:10 | NUR ---
Patient tearful and c/o ALANIS and right hip pain. Ativan po as well as Fioricet and Excedrin given without relief. Spoke with Dr Callaway. Obtained orders for Hydrocodone 5/325 po as this is on patient home medication list.
[2021-07-20] MEDS ORDERED: HYDROcodone/APAP 5/325MG 1 TAB TABLET PO PRN (04:15)
[2021-07-20 06:30] VITALS: BP 131/82
--- NOTE | 2021-07-20 07:42 | PDOC ---
[employer] PROGRESS NOTE Date of Service DOS: DATE: 07/20/21 TIME: 07:42 Chief Complaint Chief Complaint Hypertensive emergency -with hypertensive encephalopathy improved with some mild with IV labetalol, restart home toprol, prn hydralazine IV Intractable headache -side effect from Compazine became delirious for short-term had Toradol with some improvement and will hopefully get better improvement with her metoprolol and Excedrin Migraine Depression with Anxiety -hold Effexor given elevated blood pressure will transition to Cymbalta. Trazodone H/o TIA - cont ASA. echo with bubble study to r/o PFO CAD - per cardiology [facility] 08/2020 nonobstructive Glaucoma - she does not know if she is supposed to take eye drops HLD - has been somewhat lost to follow up, will obtain fasting lipids Abnormal EKG - now appears to have peaking of p-waves in II indicating left atrial enlargement/abnormality. She does note history of cardiac ablation she t mark at [facility]. 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 She complains of being able to hear her heartbeat in her ears. She also notes intermittent vision blurriness these both been progressively worse over the last 2 days. She is also noted dizziness over the last week. She notes she has not filled her metoprolol succinate 50 mg twice daily as prescribed by her primary care physician for several months due to difficulty getting to appointments. She tells ED staff and myself that she thinks she is supposed to be maintained on this because she has a history of cardiac ablation at [facility] but she cannot remember when this happened. She has no chest pain has a little bit of shortness of breath has occasional nausea no constipation or diarrhea no urinary complaints no numbness or tingling no focal weakness. She has no recent travel or sick contacts. She is fully vaccinated as COVID-19 She still smokes at least 5 cigarettes every day blood pressure in the ED is 187/111 after IV labetalol, 201/102 Filled venlafaxine 150 mg diazepam 10 mg and Banophen as well as amphetamine 15 mg in the last 3 months and was on Toprol succinate 50 mg twice daily back in February. She is concerned about getting back on her venlafaxine. I advised her this is a medication that increases blood pressure should seek an alternative antidepressant and she is amenable to start on Cymbalta and trazodone. Labs WBC 10.6, Hb 13.4, platelets 219, NA 144, K3.4, BUN 10, CR 1.1 LFTs within normal laboratory limits with exception of albumin 3.1, NT proBNP was 435 high- sensitivity troponin initially was 14 urine drug screen positive for be nzodiazepines and cannabinoids, urinalysis with moderate leuk esterase but many squamous epithelial cells likely contaminant CT head with no acute intracranial abnormalities. Chest radiograph on my interpretation no acute abnormalities possible borderline cardiomegaly. EKG on my interpretation sinus rhythm with leftward axis, increased P wave amplitude indicates left atrial enlargement, no T WI, QTC minimally prolonged at 486. Due to uncontrolled hypertension symptoms admitted for further care 07/19: Blood pressure systolic still in the 150s. Patient notes she was definitely confused last night and now recalls that her cardiac arrhythmia was in 2014. She is still somewhat anxious and afraid of not having her venlafaxine. Discussed with cardiology need for echocardiogram with bubble study given her confusion which could be dismissed as hypertensive encephalopathy would like to rule out PFO and likely TIA which is possible 07/20: Blood pressure improved placed on Aldactone per cardiology and has follow- up on August 29 with overnight she had a headache and took a Fioricet and was having trouble sleeping afterwards advised against this she has taken tramadol before with good effects but overall recommend avoiding this as she has Valium prescription at home. She feels her anxiety is improved on Cymbalta instructed to avoid venlafaxine given her hypertension. Consults: Cardiology Vitals/I&O Vitals/I&O: Vital Signs Date Time Temp Pulse Resp B/P (MAP) Pulse Ox O2 Delivery O2 Flow Rate FiO2 07/20/21 06:30 97.5 80 16 131/82 (98) 94 Room Air 97.5 I & O 07/19/21 07/19/21 07/20/21 15:00 23:00 07:00 Intake Total 300 ml 560 ml Output Total 700 ml 800 ml Balance 300 ml -700 ml -240 ml Physical Exam General: Alert, Oriented X3, Cooperative, No acute distress Heart: Regular rate (SR with PVCs), Normal S1, Normal S2, No murmurs Lungs: Clear Abdomen: Soft, No tenderness Extremities: No cyanosis, No edema Skin: No breakdown, No significant lesion Labs Labs: Laboratory Tests Test 07/19/21 08:50 07/19/21 09:20 Thyroid Stimulating Hormone (TSH) 1.779 uIU/mL (0.358-3.74) Triglycerides Level 72 mg/dL (0-150) Cholesterol Level 171 mg/dL (0-200) LDL Cholesterol, Calculated 100 mg/dL (0-100) VLDL Cholesterol, Calculated 14 mg/dL (0-40) Non-HDL Cholesterol Calculated 114 mg/dL (0-129) HDL Cholesterol 57 mg/dL (40-60) Cholesterol/HDL Ratio 3.0 Assessment and Plan Assessmemt and Plan Problems Medical Problems: (1) Hypertensive urgency Status: Acute Comment Review of Relevant I have reviewed the following items berta (where applicable) has been applied. Medications: Current Medications Medications (Trade) Dose Ordered Sig/Abner Route PRN Reason Start Time Stop Time Status Last Admin Dose Admin Atorvastatin Calcium (Lipitor) 40 mg QHS PO 07/19/21 21:00 07/19/21 20:28 Spironolactone (Aldactone) 25 mg DAILY PO 07/19/21 10:00 07/19/21 09:39 Aspirin (Ecotrin) 81 mg DAILYWBKFT PO 07/19/21 10:00 07/19/21 09:39 Acetaminophen/ Butalbital/ Caffeine (Fioricet) 1 tab PRN Q6HRS PRN PO MIGRAINE HEADACHE 07/19/21 18:45 07/19/21 20:29 Acetaminophen/ Hydrocodone Bitart (Lortab 5/325) 1 tab PRN Q4HRS PRN PO PAIN 07/20/21 04:15 07/20/21 04:18 Justifications for Admission Other Justification DAVID PURCELL MD July 20, 2021 07:42
[2021-07-20] MEDS: SPIRONOLACTONE 25 MG TABLET PO SCH (08:10)
[2021-07-20] MEDS: METOPROLOL SUCC 24HR ER 50 MG TAB.ER.24H. PO SCH (08:10)
[2021-07-20] MEDS: ENOXAPARIN 40 MG/0.4 ML SYRINGE. SQ SCH (08:10)
[2021-07-20] MEDS: ASPIRIN ENTERIC COATED 81 MG TABLET.DR. PO SCH (08:10)
[2021-07-20] MEDS: DULoxetine HCL 30 MG CAPSULE.DR PO SCH (08:10)
--- NOTE | 2021-07-20 10:23 | PDOC ---
CARDIOLOGY PROGRESS NOTE SUBJECTIVE: No acute events overnight. The patient denies any chest pain or dyspnea. She is anxious to go home. Blood pressures are much better. OBJECTIVE: Vital Signs/I&O: Vital Signs Date Time Temp Pulse Resp B/P (MAP) Pulse Ox O2 Delivery O2 Flow Rate FiO2 07/20/21 08:10 80 131/82 07/20/21 08:00 Room Air 07/20/21 06:30 97.5 16 94 97.5 I & O 07/19/21 07/19/21 07/20/21 15:00 23:00 07:00 Intake Total 300 ml 560 ml Output Total 700 ml 800 ml Balance 300 ml -700 ml -240 ml Objective: GEN.: No apparent distress. Alert and oriented. HEENT: Head is normocephalic, atraumatic NECK: Supple. LUNGS: Clear to auscultation. HEART: RRR, S1, S2 present. Peripheral pulses intact ABDOMEN: Soft, nontender. Positive bowel sounds. EXTREMITIES: Without any cyanosis. NEUROLOGIC: Normal speech, normal tone PSYCHIATRIC: Normal affect, normal mood. SKIN: No ulcerations CURRENT MEDICATIONS: Medications reviewed including spironolactone and metoprolol. DIAGNOSTIC TESTING: Echocardiogram reviewed Labs: Laboratory studies reviewed ASSESSMENT: 1. Hypertension urgency: due to poor med compliance. better 2. Hypokalemia: replaced 3. Marijuana 4. Tobacco abuse 5. Possible UTI with hx of nephrolithiasis 6. CAD: [facility] 08/2020 nonobstructive 7. Atypical CP but with some MIRANDA possibly from deconditioning. No acute EKG changes 8. Obesity 9. Hx of TIA 10. Hx of AVNRT with cardiac ablation in 2014 11. NICM 12, Anxiety depression 13. ALANIS/blurred vision: possibly from HTN PLAN: 1. Overnight blood pressure is much better controlled. 2. Continue current medical therapy 3. Echocardiogram reviewed and no evidence of right to left shunting. Supportive care. Needs close follow-up with PCP for monitoring of blood pressures. Low suspicion for primary cardiac process. Justicifation of Admission Dx: Justifications for Admission: Justification of Admission Dx: N/A ELVIA FLOWERS MD July 20, 2021 10:23
[2021-07-20] MEDS ORDERED: CETI10TA16 PO (10:40)
[2021-07-20] MEDS ORDERED: TRAZ-123 PO (10:40)
[2021-07-20] MEDS ORDERED: ATOR40TA59 PO (10:40)
[2021-07-20] MEDS ORDERED: DULO30CA2 PO (10:40)
[2021-07-20] MEDS ORDERED: TRAM50TA PO (10:40)
[2021-07-20] MEDS ORDERED: SPIR25TA PO (10:40)
[2021-07-20] MEDS ORDERED: METO50TA4 PO (10:40)
--- NOTE | 2021-07-20 10:44 | PDOC3 ---
Discharge Summary Visit Information Date of Admission: July 18, 2021 Date of Discharge: July 20, 2021 Admitting Diagnosis: HTN urgency Final Diagnosis Problems Medical Problems: (1) Hypertensive urgency Status: Acute Brief Hospital Course Allergies Allergies Coded Allergies Type Severity Reaction Last Updated Verified lamotrigine Allergy Severe FACIAL SWELLING, SOB 07/18/21 Yes lisinopril Allergy Severe SOB, RASH 07/18/21 Yes Penicillins Allergy Intermediate RASH, N/V 07/18/21 Yes latex Allergy Intermediate RASH, ITCHING 07/18/21 Yes prochlorperazine Adverse Reaction Severe panic attack 07/18/21 Yes Vital Signs Vital Signs Date Time Temp Pulse Resp B/P (MAP) Pulse Ox O2 Delivery O2 Flow Rate FiO2 07/20/21 08:10 80 131/82 07/20/21 08:00 Room Air 07/20/21 06:30 97.5 16 94 97.5 Lab Results Laboratory Tests Test 07/18/21 13:53 07/18/21 14:51 07/19/21 07:40 07/19/21 08:50 Urine Collection Type Unknown Urine Color (Auto) Light yellow Urine Turbidity Hazy Urine pH (Auto) 6.0 (<5.0-8.0) Urine Specific [place] 1.006 (1.000-1.030) Urine Protein (Auto) Negative mg/dL (Negative) Urine Glucose (Auto)(UA) Negative mg/dL (Negative) Urine Ketones (Auto) Negative mg/dL (Negative) Urine Blood (Auto) Moderate (Negative) Urine Nitrite Negative (Negative) Urine Bilirubin (Auto) Negative (Negative) Urine Urobilinogen (Auto) Normal mg/dL (Normal) Urine Leukocyte Esterase (Auto) Moderate (Negative) Urine RBC 6-10 /HPF (0-2) Urine WBC 5-10 /HPF (0-4) Urine Squamous Epithelial Cells Many /LPF Urine Bacteria Many /HPF (0-FEW) Urine Opiates Screen Neg (NEG) Urine Methadone Screen Neg (NEG) Urine Barbiturates Neg (NEG) Urine Phencyclidine Screen Neg (NEG) Urine Amphetamine/Methamphetamine Neg (NEG) Urine Benzodiazepines Screen Pos (NEG) Urine Cocaine Screen Neg (NEG) Urine Cannabinoids Screen Pos (NEG) Urine Ethyl Alcohol Neg (NEG) White Blood Count 10.6 x10^3/uL (4.0-11.0) Red Blood Count 4.45 x10^6/uL (3.50-5.40) Hemoglobin 13.4 g/dL (12.0-15.5) Hematocrit 39.1 % (36.0-47.0) Mean Corpuscular Volume 88 fL (79-100) Mean Corpuscular Hemoglobin 30 pg (25-35) Mean Corpuscular Hemoglobin Concent 34 g/dL (31-37) Red Cell Distribution Width 13.7 % (11.5-14.5) Platelet Count 219 x10^3/uL (140-400) Neutrophils (%) (Auto) 70 % (31-73) Lymphocytes (%) (Auto) 24 % (24-48) Monocytes (%) (Auto) 5 % (0-9) Eosinophils (%) (Auto) 1 % (0-3) Basophils (%) (Auto) 1 % (0-3) Neutrophils # (Auto) 7.4 x10^3/uL (1.8-7.7) Lymphocytes # (Auto) 2.5 x10^3/uL (1.0-4.8) Monocytes # (Auto) 0.5 x10^3/uL (0.0-1.1) Eosinophils # (Auto) 0.1 x10^3/uL (0.0-0.7) Basophils # (Auto) 0.1 x10^3/uL (0.0-0.2) Sodium Level 144 mmol/L (136-145) 143 mmol/L (136-145) Potassium Level 3.4 mmol/L (3.5-5.1) 3.8 mmol/L (3.5-5.1) Chloride Level 105 mmol/L (98-107) 106 mmol/L (98-107) Carbon Dioxide Level 30 mmol/L (21-32) 28 mmol/L (21-32) Anion Gap 9 (6-14) 9 (6-14) Blood Urea Nitrogen 10 mg/dL (7-20) 13 mg/dL (7-20) Creatinine 1.1 mg/dL (0.6-1.0) 0.9 mg/dL (0.6-1.0) Estimated GFR (Cockcroft-Gault) 62.2 78.4 BUN/Creatinine Ratio 9 (6-20) Glucose Level 94 mg/dL (70-99) 91 mg/dL (70-99) Calcium Level 8.7 mg/dL (8.5-10.1) 8.7 mg/dL (8.5-10.1) Magnesium Level 1.9 mg/dL (1.8-2.4) Total Bilirubin 0.4 mg/dL (0.2-1.0) Aspartate Amino Transf (AST/SGOT) 9 U/L (15-37) Alanine Aminotransferase (ALT/SGPT) 16 U/L (14-59) Alkaline Phosphatase 102 U/L (46-116) Troponin I High Sensitivity 14 ng/L (4-50) MW-Rij-A-Type Natriuretic Peptide 435 pg/mL (0-124) Total Protein 7.2 g/dL (6.4-8.2) Albumin 3.1 g/dL (3.4-5.0) Albumin/Globulin Ratio 0.8 (1.0-1.7) Thyroid Stimulating Hormone (TSH) 1.779 uIU/mL (0.358-3.74) Test 07/19/21 09:20 Triglycerides Level 72 mg/dL (0-150) Cholesterol Level 171 mg/dL (0-200) LDL Cholesterol, Calculated 100 mg/dL (0-100) VLDL Cholesterol, Calculated 14 mg/dL (0-40) Non-HDL Cholesterol Calculated 114 mg/dL (0-129) HDL Cholesterol 57 mg/dL (40-60) Cholesterol/HDL Ratio 3.0 Brief Hospital Course Ms Garcia is a 56yo female with PMHx HTN, TIA, depression with anxiety who comes to the ED (brought by her nephew, Estuardo Fierroquincy Smith) with several complaints, the worst of which is a headache that is diffuse with associated auditory sensitivity. She complains of being able to hear her heartbeat in her ears. She also notes intermittent vision blurriness these both been progressively worse over the last 2 days. She is also noted dizziness over the last week. She notes she has not filled her metoprolol succinate 50 mg twice daily as prescribed by her primary care physician for several months due to difficulty getting to appointments. She tells ED staff and myself that she thinks she is supposed to be maintained on this because she has a history of cardiac ablation at [facility] but she cannot remember when this happened. She has no chest pain has a little bit of shortness of breath has occasional nausea no constipation or diarrhea no urinary complaints no numbness or tingling no focal weakness. She has no recent travel or sick contacts. She is fully vaccinated as COVID-19 She still smokes at least 5 cigarettes every day blood pressure in the ED is 187/111 after IV labetalol, 201/102 Filled venlafaxine 150 mg diazepam 10 mg and Banophen as well as amphetamine 15 mg in the last 3 months and was on Toprol succinate 50 mg twice daily back in February. She is concerned about getting back on her venlafaxine. I advised her this is a medication that increases blood pressure should seek an alternative antidepressant and she is amenable to start on Cymbalta and trazodone. Labs WBC 10.6, Hb 13.4, platelets 219, NA 144, K3.4, BUN 10, CR 1.1 LFTs within normal laboratory limits with exception of albumin 3.1, NT proBNP was 435 high- sensitivity troponin initially was 14 urine drug screen positive for benzodiazepines and cannabinoids, urinalysis with moderate leuk esterase but many squamous epithelial cells likely contaminant CT head with no acute intracranial abnormalities. Chest radiograph on my interpretation no acute abnormalities possible borderline cardiomegaly. EKG on my interpretation sinus rhythm with leftward axis, increased P wave amplitude indicates left atrial enlargement, no T WI, QTC minimally prolonged at 486. Due to uncontrolled hypertension symptoms admitted for further care 07/19: Blood pressure systolic still in the 150s. Patient notes she was definitely confused last night and now recalls that her cardiac arrhythmia was in 2014. She is still somewhat anxious and afraid of not having her venlafaxine. Discussed with cardiology need for echocardiogram with bubble study given her confusion which could be dismissed as hypertensive e ncephalopathy would like to rule out PFO and likely TIA which is possible 07/20: Blood pressure improved placed on Aldactone per cardiology and has follow- up on August 29 with overnight she had a headache and took a Fioricet and was having trouble sleeping afterwards advised against this she has taken tramadol before with good effects but overall recommend avoiding this as she has Valium prescription at home. She feels her anxiety is improved on Cymbalta instructed to avoid venlafaxine given her hypertension. Echocardiogram showed EF of 40%. Bubble study negative for PFO. Previously has had severe headaches and nitrates and notes she cannot tolerate hydralazine and has had a cough on lisinopril and losartan. For her CHF Toprol-XL and spironolactone therapy Consults: Cardiology Hypertensive emergency -with hypertensive encephalopathy improved with some mild with IV labetalol, restart home toprol, prn hydralazine IV Intractable headache -side effect from Compazine became delirious for short-term had Toradol with some improvement and will hopefully get better improvement with her metoprolol and Excedrin Migraine Depression with Anxiety -hold Effexor given elevated blood pressure will transition to Cymbalta. Trazodone H/o TIA - cont ASA. echo with bubble study to r/o PFO CAD - per cardiology [facility] 08/2020 nonobstructive Glaucoma - she does not know if she is supposed to take eye drops HLD - has been somewhat lost to follow up, will obtain fasting lipids Abnormal EKG - now appears to have peaking of p-waves in II indicating left atrial enlargement/abnormality. She does note history of cardiac ablation she thinks at [facility]. 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 Discharge Information Condition at Discharge: Improved Follow Up: Weeks Disposition/Orders: D/C to Home Scheduled Atorvastatin Calcium (Atorvastatin Calcium) 40 Mg Tablet, 40 MG PO QHS for HLD for 30 Days, #30 Ref 5 Prescribed by: DAVID PURCELL MD on 07/20/21 1040 Duloxetine Hcl (Cymbalta) 30 Mg Capsule.dr, 30 MG PO DAILY for Depression/Anxiety for 30 Days, #30 Ref 5 Prescribed by: DAVID PURCELL MD on 07/20/21 1040 Lidocain/Me-Salicyl/Caps/Menth (Medi-Patch With Lidocaine) 1 Each Adh..patch, 1 EACH TP DAILY for MSK pain for 14 Days, #14 Prescribed by: DIXIE SPARKS on 02/12/19 1214 Last Action: Reviewed on 07/18/211929 by KWAKU JENSEN Metoprolol Succinate (Toprol XL) 50 Mg Tab.er.24h, 50 MG PO DAILY for HTN for 30 Days, #30 Ref 5 Prescribed by: DAVID PURCELL MD on 07/20/21 1040 Spironolactone (Aldactone) 25 Mg Tablet, 25 MG PO DAILY for HTN/CHF for 30 Days, #30 Ref 5 Prescribed by: DAVID PURCELL MD on 07/20/21 1040 Scheduled PRN Albuterol Sulfate (Proair Hfa) 8.5 Gm Hfa.aer.ad, 2 PUFF IH PRN Q4-6HRS PRN for wheezing for 21 Days, #1 Ref 0 Prescribed by: More Bee APRN on 05/06/19 1222 Last Action: Reviewed on 07/18/211927 by KWAKU JENSEN Cetirizine Hcl (Cetirizine Hcl) 10 Mg Tablet, 10 MG PO PRN DAILY PRN for ALLERGIES for 30 Days, #30 Prescribed by: DAVID PURCELL MD on 07/20/21 1040 Diazepam (Valium) 10 Mg Tablet, 10 MG PO BID PRN for anxiety/pain, (Reported) Entered as Reported by: KWAKU JENSEN on 07/18/211932 Last Action: New Order on 07/18/211932 by KWAKU JENSEN Diphenhydramine Hcl (Benadryl) 25 Mg Capsule, 2 CAP PO BID PRN for sinus congestion for 30 Days, #120 Ref 0 (Reported) Entered as Reported by: KWAKU JENSEN on 07/18/211933 Last Action: New Order on 07/18/211933 by KWAKU JENSEN Tramadol Hcl (Tramadol Hcl) 50 Mg Tablet, 50 MG PO Q6HRS PRN for PAIN for 6 Days, #24 Prescribed by: DAVID PURCELL MD on 07/20/21 1041 Trazodone Hcl (Trazodone Hcl) 100 Mg Tablet, 100 MG PO PRN QHS PRN for INSOMNIA for 30 Days, #30 Ref 5 Prescribed by: DAVID PURCELL MD on 07/20/21 1040 Discontinued Medications Dextroamphetamine/Amphetamine (Adderall Xr 30 Mg Capsule) 30 Mg Cap.er.24h, 1 CA P PO DAILY, #30 (Reported) Entered as Reported by: Bhupinder Pressley on 08/05/14 0535 Last Action: Reviewed on 07/18/211928 by KWAKU JENSEN Hydrocodone/Acetaminophen (Hydrocodone-Acetamin 5-325 mg) 1 Each Tablet, 5-325 MG PO PRN Q4-6HRS PRN for PAIN, (Reported) Entered as Reported by: Hayder Gomez on 02/12/19256 Last Action: Reviewed on 07/18/211928 by KWAKU JENSEN Metoprolol Tartrate (Metoprolol Tartrate) 25 Mg Tablet, 50 MG PO BID for heart, (Reported) Entered as Reported by: Hayder Gomez on 02/12/19256 Last Action: Edited on 07/18/211927 by KWAKU JENSEN Venlafaxine Hcl (Venlafaxine Hcl) 75 Mg Tablet, 75 MG PO DAILY for depression, (Reported) Entered as Reported by: KWAKU JENSEN on 07/18/211931 Last Action: New Order on 07/18/211931 by KWAKU JENSEN Justicifation of Admission Dx: Justifications for Admission: Justification of Admission Dx: N/A DAIVD PURCELL MD July 20, 2021 10:44
[2021-07-20 10:58] VITALS: BP 151/84
[2021-07-20] MEDS: BUTALB/APAP/CAFEIN 50/325/40MG TABLET. PO PRN (13:47)
== END 2021-07-20 14:15 | disposition home or self-care (01) | DRG 78 ==
LOC: ER 13:38 → 6 SOUTH 16:45
PROVIDERS: ADMIT Internal Medicine; ATTEND Internal Medicine
DX: I67.4 Hypertensive encephalopathy (principal); I16.1 Hypertensive emergency; E44.0 Moderate protein-calorie malnutrition; I42.8 Other cardiomyopathies; Z68.42 Body mass index [BMI] 45.0-49.9, adult; N17.9 Acute kidney failure, unspecified; E87.6 Hypokalemia; E66.9 Obesity, unspecified; E78.00 Pure hypercholesterolemia, unspecified; E78.5 Hyperlipidemia, unspecified; F17.210 Nicotine dependence, cigarettes, uncomplicated; F32.A Depression, unspecified; F41.9 Anxiety disorder, unspecified; H40.9 Unspecified glaucoma; I15.8 Other secondary hypertension; I25.10 Atherosclerotic heart disease of native coronary artery without angina pectoris; I50.9 Heart failure, unspecified; M06.9 Rheumatoid arthritis, unspecified; M79.7 Fibromyalgia; Z82.49 Family history of ischemic heart disease and other diseases of the circulatory system; Z83.3 Family history of diabetes mellitus; Z86.73 Personal history of transient ischemic attack (TIA), and cerebral infarction without residual deficits; Z87.442 Personal history of urinary calculi; Z90.710 Acquired absence of both cervix and uterus; Z91.14 Patient's other noncompliance with medication regimen; Z91.19 Patient's noncompliance with other medical treatment and regimen; M19.90 Unspecified osteoarthritis, unspecified site; K21.9 Gastro-esophageal reflux disease without esophagitis; Z88.0 Allergy status to penicillin; Z88.8 Allergy status to other drugs, medicaments and biological substances; Z91.040 Latex allergy status; R07.89 Other chest pain
CPT/HCPCS: 36415; 70450; 71045; 80048; 80053; 80061; 80307; 81001; 83735; 83880; 84443; 84484; 85025; 87086; 93005; 93306; 96374; 96375; J0780; J1200; J1650; J1885; J3490; 97110-GP; 97530-GO; 99285-25; C8929; G0378